=== PATIENT | male | born 1935 | race Caucasian/White ===

== ENCOUNTER → 2017-08-05 14:22 | Outpatient (CLI) | payer OTHER, SELFPAY ==
--- NOTE | 2017-08-08 09:05 | PM.PFT.1 ---
Pulmonary Function Test Referral & Results Date Patient Seen: 08/05/17 Requesting provider: Rocael Avila Results: The spirometry demonstrates an FVC of 3.06 L which is 79% of predicted. The FEV1 was measured at 2.55 L which is 93% of predicted. The FEV1/FVC ratio was 83 which is 115% of predicted. Following the administration of bronchodilator there was no appreciable change. Lung volumes show an SVC of 3.39 L which is 79% of predicted. The diffusing capacity was measured at 28.8 which is 92% of predicted. The maximum voluntary ventilation was normal. Interpretation: This study demonstrates normal pulmonary function
== END ==
PROVIDERS: Visit Provider Family Medicine
DX: R06.00 Dyspnea, unspecified (principal)
CPT/HCPCS: 94010; 94060; 94726; 94729

== ENCOUNTER → 2017-10-20 15:34 | Outpatient (CLI) | payer OTHER, SELFPAY ==
--- NOTE | 2017-10-20 15:37 | DI.RAD.S_ITS ---
PROCEDURE: XR ACUTE ABDOMEN SERIES INDICATIONS: DIARRHEA AND WEIGHT LOSS TECHNIQUE: One view chest and two views of the abdomen were acquired. COMPARISON: [facility], , CHEST 2 VIEW, 07/04/2017, 9:46. FINDINGS: Surgical changes and devices: None. Chest: Lungs are clear. Heart size is normal. No pleural effusions. No pneumoperitoneum. Abdomen: Bowel gas pattern is normal, nonspecific air-fluid levels present in the sigmoid colon and at the splenic flexure as well as scattered elsewhere.. No suspicious calcifications. Visualized solid organ contours appear normal. Bones: No suspicious bony lesions. IMPRESSION: 1. Normal chest. 2. Possible ileus with scattered air-fluid levels. Dictated by: Shawn Lopez M.D. on 10/20/2017 at 16:11 Approved by: Shawn Lopez M.D. on 10/20/2017 at 16:13
== END ==
PROVIDERS: Visit Provider Family Medicine
DX: R19.7 Diarrhea, unspecified (principal); R63.4 Abnormal weight loss
CPT/HCPCS: 74022

== ENCOUNTER → 2017-10-29 11:50 | Outpatient (CLI) | payer OTHER, SELFPAY ==
--- NOTE | 2017-10-29 | DI.CT.S_ITS ---
PROCEDURE: CT ABDOMEN PELVIS W CON INDICATIONS: WEIGHT LOSS/CONSTIPATION TECHNIQUE: After the administration of oral and intravenous contrast, 5 mm thick sections acquired from the diaphragms to the symphysis. 5 mm thick coronal and sagittal reformats were performed. For radiation dose reduction, the following was used: automated exposure control, adjustment of mA and/or kV according to patient size. COMPARISON: None. FINDINGS: Image quality: Excellent. ABDOMEN: Lung bases: Linear scarring and atelectasis are noted in posterior aspect of bilateral lung bases. Heart size is normal. Solid organs: Examination of liver shows a 3.2 x 3 x 1.6 cm ill-defined hypodense lesion with peripheral contrast enhancement seen in central/slightly lateral aspect right hepatic lobe. No other discrete hepatic lesion is noted. Gallbladder is well-distended and contains tiny [address] evidence of acute cholecystitis. Biliary system is non-dilated. Pancreas enhances normally. Spleen is normal in size and enhancement. No adrenal nodules. Kidneys are normal in size and enhancement, without hydronephrosis. Peritoneum and bowel: Stomach, small bowel, and colon loops are normal in caliber and wall thickness. There is a small hiatal hernia. Descending and sigmoid colon diverticulosis is seen, no significant evidence of acute diverticulitis. Appendix is visualized in right lower quadrant and is within normal limits. No free fluid or air. Nodes and vessels: No retroperitoneal or mesenteric adenopathy. Aorta and inferior vena cava are normal in caliber. Miscellaneous: Small periumbilical hernia is seen containing fat only. PELVIS: Genitourinary: Bladder wall thickness is normal. Enlarged prostate gland is noted with heterogeneous enhancement and significant mass effect of fluoroscopy unit bladder. No gross abnormalities are noted in the seminal vesicles. Miscellaneous: No inguinal hernias or adenopathy. Bones: No suspicious bony lesions. No vertebral body compression fractures. IMPRESSION: 1. 3.2 x 3 x 1.6 cm ill-defined hypodense lesion with peripheral contrast enhancement seen in the right hepatic lobe. This could represent benign process such as hemangioma. Malignant neoplasm of the liver cannot be entirely excluded. Consider further evaluation with MRI of abdomen without and with contrast. 2. No evidence of bowel obstruction. No gross abnormal bowel wall thickening. No free fluid or free air. Small hiatal hernia. Descending and sigmoid colon diverticulosis with no CT evidence of acute diverticulitis. 3. Cholelithiasis. No CT evidence of acute cholecystitis. No biliary ductal dilatation. 4. Enlarged prostate gland with heterogeneous contrast enhancement and mass effect of fluoroscopy unit bladder. No discrete bladder wall abnormality. No hydronephrosis. Suggest correlate with patient's PSA level. Dictated by: Reinaldo Ascencio M.D. on 10/29/2017 at 14:49 Approved by: Reinaldo Ascencio M.D. on 10/29/2017 at 15:14
== END ==
PROVIDERS: Visit Provider Family Medicine
DX: K59.00 Constipation, unspecified (principal); R63.4 Abnormal weight loss; K76.9 Liver disease, unspecified; K44.9 Diaphragmatic hernia without obstruction or gangrene; K57.30 Diverticulosis of large intestine without perforation or abscess without bleeding; K80.20 Calculus of gallbladder without cholecystitis without obstruction; N40.0 Benign prostatic hyperplasia without lower urinary tract symptoms
CPT/HCPCS: 74177; Q9967

== ENCOUNTER → 2017-11-13 13:51 | Outpatient (CLI) | payer OTHER, SELFPAY ==
--- NOTE | 2017-11-13 | DI.MRI.S_ITS ---
PROCEDURE: MR ABDOMEN WO/W CON INDICATIONS: LIVER LESION TECHNIQUE: Coronal HASTE, axial 2D FLASH in- and [id number]; axial breath-hold T2 FSE. Dynamic axial VIBE during the administration of contrast; post-contrast coronal VIBE or 2D FLASH with fat saturation from the hepatic dome to the iliac crests. Optional diffusion weighted imaging and ADC may be performed. COMPARISON: [facility], CT, CT ABDOMEN PELVIS W CON, 10/29/2017, 13:13. FINDINGS: Image quality: There is motion artifact limiting evaluation. Lung bases: No basal pleural effusions. Heart size is enlarged. Solid organs: Centered in segment 5 of the right hepatic lobe, there is an ovoid lesion with indistinct margins demonstrating T1 hypointensity and slight T2 hyperintensity. Following contrast administration, there is a thin peripheral enhancement demonstrated on the arterial phase which persists on the portal venous and delayed phases. No evidence of progressive centripetal enhancement. On the arterial phase, there is also associated vascular shunting. Gallbladder is partially distended without gallstones. Biliary system is non dilated. Pancreas is normal in morphology. No pancreatic duct dilatation. Spleen is normal in size and enhancement. No adrenal nodules. Kidneys demonstrate no hydronephrosis. There are small right parapelvic renal cysts. Nodes and vessels: No retroperitoneal or mesenteric adenopathy by size criteria. Aorta and inferior vena cava are normal in size. Bowel and peritoneum: Visualized bowel loops are normal in caliber. No free fluid. Bones and soft tissues: No ventral hernias. Bone marrow is normal in overall signal. IMPRESSION: 1. Peripherally enhancing lesion demonstrated in the right hepatic lobe with associated vascular shunting on the arterial phase. The findings are nonspecific but suspicious for metastatic disease. The differential includes a rim-enhancing fluid collection such as an abscess. Recommend correlation clinically. Dictated by: Vernon Srivastava M.D. on 11/13/2017 at 16:59 Approved by: Vernon Srivastava M.D. on 11/13/2017 at 17:06
== END ==
PROVIDERS: PCP Family Medicine; Visit Provider Family Medicine
DX: K76.9 Liver disease, unspecified (principal)
CPT/HCPCS: 74183; A9579

== ENCOUNTER → 2018-03-06 17:28 | Outpatient (CLI) | payer OTHER, SELFPAY ==
--- NOTE | 2018-03-06 | DI.MRI.S_ITS ---
PROCEDURE: MR ABDOMEN WO/W CON INDICATIONS: LIVER LESION TECHNIQUE: Coronal HASTE, axial 2D FLASH in- and [id number]; axial breath-hold T2 FSE. Dynamic axial VIBE during the administration of contrast; post-contrast coronal VIBE or 2D FLASH with fat saturation from the hepatic dome to the iliac crests. Optional diffusion weighted imaging and ADC may be performed. COMPARISON: [facility], CT, CT ABDOMEN PELVIS W CON, 10/29/2017, 13:13. [facility], MR, MR ABDOMEN WO/W CON, 11/13/2017, 14:09. FINDINGS: Image quality: Excellent. Lung bases: No basal pleural effusions. Heart size is normal. Solid organs: Within segment 8 of the right hepatic lobe, there is an ovoid curvilinear lesion redemonstrated, with an ovoid component measuring approximately 1.9 x 1.0 cm which demonstrates T1 hypointensity and slight T2 hyperintensity. This appears stable in size from the prior studies. There is peripheral enhancement during the arterial phase which persists on the portal venous and delayed phases. There is a small region of adjacent vascular shunting during the arterial phase. No evidence of washout. The curvilinear component appears to extend to the frantz hepatis. 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 The main portal vein as well as the central right and left portal veins appear patent. The central branches of the hepatic artery also appears patent. The central branches of the hepatic veins also appear patent. Gallbladder appears within normal limits without gallstones. Biliary system is non dilated. Pancreas is normal in morphology. Spleen is normal in size and enhancement. No adrenal nodules. The kidneys demonstrate no hydronephrosis. Nodes and vessels: No retroperitoneal or mesenteric adenopathy by size criteria. Aorta and inferior vena cava are normal in size. Bowel and peritoneum: Visualized bowel loops are normal in caliber. No free fluid. Bones and soft tissues: No ventral hernias. Bone marrow is normal in overall signal. IMPRESSION: 1. Stable appearance of a peripherally enhancing lesion in the right hepatic lobe compared to the prior studies. 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 Although the differential still includes a neoplasm, this is considered less likely. Recommend continued followup in 6 months to demonstrate stability. Dictated by: Vernon Srivastava M.D. on 03/09/2018 at 10:37 Approved by: Vernon Srivastava M.D. on 03/09/2018 at 12:24
== END ==
PROVIDERS: PCP Family Medicine; Visit Provider Family Medicine
DX: K76.9 Liver disease, unspecified (principal)
CPT/HCPCS: 74183; A9579

== ENCOUNTER → 2018-10-14 15:56 | Outpatient (CLI) | payer OTHER, SELFPAY ==
--- NOTE | 2018-10-14 16:00 | DI.MRI.S_ITS ---
PROCEDURE: MR ABDOMEN WO/W CON INDICATIONS: LIVER MASS TECHNIQUE: Coronal HASTE, axial 2D FLASH in- and [id number]; axial breath-hold T2 FSE. Dynamic axial VIBE during the administration of contrast; post-contrast coronal VIBE or 2D FLASH with fat saturation from the hepatic dome to the iliac crests. Optional diffusion weighted imaging and ADC may be performed. COMPARISON: [facility], MR, MR ABDOMEN WO/W CON, 03/06/2018, 17:48. FINDINGS: Image quality: Partially degraded by motion artifact. Lung bases: No basal pleural effusions. Heart size is normal. Solid organs: Liver is normal in size. The ovoid high T2 intensity focus within the right hepatic lobe measuring roughly 31 mm is unchanged in size, appearance, and enhancement. As before, this lesion demonstrates peripheral nodular enhancement on arterial phase images. Gallbladder is within normal limits. Biliary system is non dilated. Pancreas is normal in morphology. Spleen is normal in size and enhancement. No adrenal nodules. Both kidneys demonstrate normal size and enhancement, without hydronephrosis. Nodes and vessels: No retroperitoneal or mesenteric adenopathy by size criteria. Aorta and inferior vena cava are normal in size. Bowel and peritoneum: Unenhanced bowel loops are normal in caliber. No free fluid. Bones and soft tissues: No ventral hernias. Bone marrow is normal in overall signal. IMPRESSION: 1. No change in right hepatic lobe lesion, suggestive of an atypical hemangioma. Nuclear medicine tag red blood cell imaging may be helpful for further assessment. Alternatively, followup liver protocol MRI with and without intravenous contrast in 1 year could be performed to document stability. Dictated by: Anamaria Mckeon M.D. on 10/16/2018 at 8:47 Approved by: Anamaria Mckeon M.D. on 10/16/2018 at 8:52
== END ==
PROVIDERS: PCP Family Medicine; Visit Provider Family Medicine
DX: R16.0 Hepatomegaly, not elsewhere classified (principal)
CPT/HCPCS: 74183

== ENCOUNTER → 2018-11-04 16:22 | Outpatient (CLI) | payer OTHER, SELFPAY ==
--- NOTE | 2018-11-04 | DI.RAD.S_ITS ---
PROCEDURE: XR LUMBAR SPINE 2-3V INDICATIONS: Low back pain TECHNIQUE: 3 views of the lumbar spine were acquired. COMPARISON: None. FINDINGS: Bones: 5 [id number] vertebrae are present. There is normal bony alignment. No vertebral body compression fractures. No suspicious bony lesions. Degenerative disc disease and facet osteoarthritis and severe for this patient, over the thoracolumbar junction and lumbosacral line. It is most pronounced at L4-5 and L5-S1 where a high-grade spinal and foraminal stenosis appears present. Soft tissues: Overlying bowel gas pattern is normal. No suspicious soft tissue calcifications. IMPRESSION: Severe degenerative disc disease and facet osteoarthritis, high-grade low lumbosacral junction region spinal and foraminal stenosis would be expected. No trauma found. Dictated by: Rober Law M.D. on 11/04/2018 at 17:18 Approved by: Rober Law M.D. on 11/04/2018 at 17:19
== END ==
PROVIDERS: PCP Family Medicine; Visit Provider Family Medicine
DX: M54.5 Low back pain (principal); M51.36 Other intervertebral disc degeneration, lumbar region; M51.37 Other intervertebral disc degeneration, lumbosacral region; M47.816 Spondylosis without myelopathy or radiculopathy, lumbar region; M47.817 Spondylosis without myelopathy or radiculopathy, lumbosacral region
CPT/HCPCS: 72100

== ENCOUNTER → 2018-12-12 12:20 | Outpatient (CLI) | payer OTHER, SELFPAY ==
--- NOTE | 2018-12-12 | DI.MRI.S_ITS ---
PROCEDURE: MR LUMBAR SPINE WO CON INDICATIONS: Low back pain TECHNIQUE: Noncontrast sagittal T1 spin echo and T2 fast echo, sagittal STIR, axial T1 and T2 fast spin echo through the lumbar spine. In cases with scoliosis, additional coronal T2 fast spin echo may be performed. COMPARISON: [facility], CR, XR LUMBAR SPINE 2-3V, 11/04/2018, 16:41. FINDINGS: Image quality: Excellent. Alignment and Curvature: There is minimal retrolisthesis of L1 on L2, L3 on L4, L4-L5 and L5 on S1. Bone Marrow: Marrow is of normal overall signal. No acute vertebral body compression fractures. Spinal Cord: Conus medullaris terminates at the L2 level. Visualized cord demonstrates normal signal and size. Paraspinous Soft Tissues: No paravertebral masses. Discs: Severe desiccation is present at L5-S1, moderate throughout the remainder of the lumbar spine. L1-L2: Mild disc both without spinal stenosis. Mild to moderate bilateral foraminal narrowing with facet and ligamentum flavum hypertrophy. L2-L3: Minimal disc bulge with prominent right lateral disc osteophyte complex. Severe right and mild left foraminal narrowing with facet and ligamentum flavum hypertrophy. L3-L4: Mild disc bulge with minimal spinal stenosis. Severe bilateral foraminal narrowing, right greater than left with slight appearance of flattening on the right. Facet and ligamentum flavum hypertrophy are present. L4-L5: Mild disc bulge including a left posterior paracentral protrusion with compromise of the left lateral recess. Severe bilateral foraminal narrowing with facet and ligamentum flavum hypertrophy. L5-S1: Mild disc bulge with minimal to mild spinal stenosis. Severe bilateral foraminal narrowing with slight nerve root flattening bilaterally. Facet hypertrophy is present. IMPRESSION: 1. Multilevel disc bulges. 2. Minimal to mild to spinal stenosis secondary to disc bulge with contributing effect of facet arthropathy. 3. Multilevel foraminal narrowing, severe at multiple levels secondary to facet arthropathy. Slight appearance of nerve root flattening is noted L3-4 and L5-S1. Dictated by: Steph Ferreira M.D. on 12/14/2018 at 8:47 Approved by: Steph Ferreira M.D. on 12/14/2018 at 9:56
== END ==
PROVIDERS: PCP Family Medicine; Visit Provider Family Medicine
DX: M48.061 Spinal stenosis, lumbar region without neurogenic claudication (principal); M51.26 Other intervertebral disc displacement, lumbar region
CPT/HCPCS: 72148

== ENCOUNTER 2018-12-25 13:45 | Outpatient (RCR) | payer OTHER, SELFPAY ==
--- NOTE | 2018-12-02 16:45 | PT.OIE ---
Current Diagnoses Other intervertebral disc degeneration, lumbar region (12/02/18) Low back pain (12/02/18) Muscle weakness (generalized) (12/02/18) Visit Care Team Role Provider Type Rocael Avila MD Attending Provider Physician Primary Care Provider Specialty: Family Practice Address: [address] [place] [address], [facility] [place], [address] Email: [email or web address] Therapy Initial Evaluation PT-OP-A Visit Information Start: 12/07/18 13:18 Freq: Status: Active Protocol: Document 12/02/18 16:00 DCW (Rec: 12/07/18 13:42 DCW [id number]) Out-Patient Physical Therapy Visit Information Visit Information Visit Type Initial Evaluation Visit Start Time 16:00 Visit Stop Time 16:45 Total Visit Minutes 45 Visit Number 1 Number of QUALITY ASSISTANT Visits 0 Evaluation Information Evaluation Date 12/02/18 PT-OP-B Current Condition Start: 12/07/18 13:18 Freq: Status: Active Protocol: Document 12/02/18 16:00 DCW (Rec: 12/07/18 13:42 DCW [id number]) Current Condition History of Current Condition Onset Date 2-3 weeks Current Complaints low back pain and stiffness limiting mobility and daily activities History of Current Condition Pt is an 83 year old male presenting with a 2-3 week history of worsening low back pain. Pt reports he has a history of low back pain and sciatica, which was taken care of by acupuncture years ago. Pt notes that he has been consistently icing his back, which does not seem to have helped any, and it is always worse after he has not been moving. Pt admits that he woke up at 2 am this morning due to pain, and couldn't even get out of bed. Describes that pain as a sharp, grabbing sensation. He experiences increased pain when bending over to tie his shoes, and has difficulty mowing the yard. Pt attends his evaluation approximately 40 minutes after receiving a Torodol injection in his low back, which he already feels is giving him some relief. Prior Functional Status Baseline Function- ADL's Independent Baseline Function- Mobility Independent Baseline Function- Other Able to mow entire yard, spend all day out gardening Current Functional Impairments (Reported) Functional Limitations- Other Requires a rest break while mowing every 4-10 minutes, can only garden for 10-15 minutes . PT-OP-C Subjective Start: 12/07/18 13:18 Freq: Status: Active Protocol: Document 12/02/18 16:00 DCW (Rec: 12/07/18 13:42 DCW [id number]) OP-PT Subjective Patient Comments Patient Comments It hurts when I do anything. I feel like I'm just stuck, it hurts when I don't do anything, but it also hurts if I do something. Patient Reported Progress Worse OP-PT Pain Assessment Pain Assessment Grid Paper Pain Assessment Grid Completed No PT-OP-F Manual Assessment Start: 12/07/18 13:18 Freq: Status: Active Protocol: Document 12/02/18 16:00 DCW (Rec: 12/07/18 13:42 DCW [id number]) Manual Assessments Soft Tissue Assessment Soft Tissue Mobility Assessment Bilateral moderate tightness in QL, Piriformis, Hamstring. Joint Mobility Assessment Joint Mobility Assessment Hypomobility L2-L5 /c P->A mobiilzation. Limited Lumbar ROM PT-OP-K Range of Motion Start: 12/07/18 13:18 Freq: Status: Active Protocol: Document 12/02/18 16:00 DCW (Rec: 12/07/18 13:42 DCW [id number]) Lumbar Spine Range of Motion Lumbar Spine Active Degrees Testing Position Standing Flexion 35 Extension 12 Lateral Flexion Left 56 Lateral Flexion Right 39 Comments Lateral flexion measured in cm from floor to fingertips, substantially limited with left lateral flexion PT-OP-L Special Tests Start: 12/07/18 13:18 Freq: Status: Active Protocol: Document 12/02/18 16:00 DCW (Rec: 12/07/18 13:42 DCW [id number]) Special Tests Lumbar Spine Special Tests CHRISTOPHER Test Results Positive bilaterally - ipsilateral pain in back Straight Leg Raise Test Results Positive Left Slump Test Results Positive bilaterally Manual Traction Test Results Negative Compression Test Results Positive PT-OP-M Strength Start: 12/07/18 13:18 Freq: Status: Active Protocol: Document 12/02/18 16:00 DCW (Rec: 12/07/18 13:42 DCW [id number]) Trunk Strength Trunk Manual Muscle Testing Core Stabilization Pt struggles to maintain TrA contraction and hold PPT at the same time. TrA MMT rated 3 +/5 Hip Strength Hip Manual Muscle Testing Bilateral Flexion (L2) 4+ Good+ Extension (S1) 4+ Good+ Abduction 4+ Good+ Adduction 4+ Good+ External Rotation 4+ Good+ Internal Rotation 4+ Good+ Knee Strength Knee Manual Muscle Testing Bilateral Flexion (S2) 4+ Good+ Extension (L3) 4+ Good+ PT-OP-Q Treatments Start: 12/07/18 13:18 Freq: Status: Active Protocol: Document 12/02/18 16:00 DCW (Rec: 12/07/18 13:42 DCW [id number]) Therapeutic Exercises Supine Exercises PPT /c SLR Supine Exercise Name PPT /c TrA contraction - Alternating SLR Reps/Minutes 5 hold PPT /c Marching Supine Exercise Name PPT /c TrA contraction - Marching Reps/Minutes 5 hold PPT /c TrA Supine Exercise Name PPT /c TrA contraction Reps/Minutes 5 hold PT-OP-T Assessment and Plan Start: 12/07/18 13:18 Freq: Status: Active Protocol: Document 12/02/18 16:00 DCW (Rec: 12/07/18 13:42 DCW [id number]) Physical Therapy Assessment Rehab Potential Rehabilitation Potential Good Evaluation Complexity Number of Personal Factors/Comorbidities 1-2 Number of Body Systems Impaired 4 or More Clinical Presentation at Evaluation Evolving Impairments Impairments Activity Tolerance,Functional Mobility,Pain,ROM,Soft Tissue Mobility,Strength Goals Four Impairment Limited lumbar ROM Short Term Goal (STG) Pt to demonstrate increase in lumbar flexion to 45? and extension to 20? STG Duration 01/01/19 Corrosion Control Specialist Goal (LTG) Pt to display lateral flexion to at most 45 cm fingertips to ground bilaterally LTG Duration 02/01/19 Three Impairment Pt requires a break after 15 minutes gardening Corrosion Control Specialist Goal (LTG) Pt to garden for one hour with no increased back pain LTG Duration 02/01/19 Two Impairment Pt unable to mow longer than 10 minutes at a time Senior Living Goal (LTG) Pt to tolerate mowing yard for 30 minutes with no increased low back pain LTG Duration 02/01/19 One Impairment Pt does not have an appropriate home exercise program Short Term Goal (STG) Pt to be independent and compliant with an appropriate HEP STG Duration 01/01/19 Assessment Summary Assessment Pt presents with signs and symptoms consistent with lumbar degenerative disc disease. Pt displays limited lumbar ROM, increased tone in his paraspinal and posterior hip musculature, core weakness , and increased pain with activity. Skilled therapy should focus on core strengthening, STM and stretching to decrease tone, TherEx to improve activity tolerance, and joint mobilization to improve ROM. Additionally, pt may also benefit at some point with aquatic therapy, to enable him to strengthen and decrease compression of his spine. Physical Therapy Plan Frequency and Duration Frequency of Treatment 2x/Week Duration of Treatment 12 weeks Plan of Care Start Date 12/02/18 Plan of Care End Date 02/24/19 Therapeutic Interventions Therapeutic Interventions Aquatic Therapy,Home Exercise Program,Joint Mobilizations, Manual Therapy,Patient/ Caregiver Education,Self-Care/ Home Management,Soft Tissue Mobilization,Therapeutic Exercises Modalities Cold Pack/Ice Massage,Electric Stimulation,Hot Packs, Ultrasound Next Visit Focus/Plan Next Note Type Treatment Note Next Visit Plan Lumbar ROM, Core strengthening , STM
--- NOTE | 2018-12-02 16:45 | PT.OPPOC ---
Current Diagnoses Other intervertebral disc degeneration, lumbar region (12/02/18) Low back pain (12/02/18) Muscle weakness (generalized) (12/02/18) Visit Care Team Role Provider Type Rocael Avila MD Attending Provider Physician Primary Care Provider Specialty: Family Practice Address: [address] [place] [address], [facility] [place], [address] Email: [email or web address] Plan Of Care PT-OP-T Assessment and Plan Start: 12/07/18 13:18 Freq: Status: Active Protocol: Document 12/02/18 16:00 DCW (Rec: 12/07/18 13:42 DCW [id number]) Physical Therapy Assessment Rehab Potential Rehabilitation Potential Good Evaluation Complexity Number of Personal Factors/Comorbidities 1-2 Number of Body Systems Impaired 4 or More Clinical Presentation at Evaluation Evolving Impairments Impairments Activity Tolerance,Functional Mobility,Pain,ROM,Soft Tissue Mobility,Strength Goals Four Impairment Limited lumbar ROM Short Term Goal (STG) Pt to demonstrate increase in lumbar flexion to 45? and extension to 20? STG Duration 01/01/19 Longterm Goal (LTG) Pt to display lateral flexion to at most 45 cm fingertips to ground bilaterally LTG Duration 02/01/19 Three Impairment Pt requires a break after 15 minutes gardening Longterm Goal (LTG) Pt to garden for one hour with no increased back pain LTG Duration 02/01/19 Two Impairment Pt unable to mow longer than 10 minutes at a time Longterm Goal (LTG) Pt to tolerate mowing yard for 30 minutes with no increased low back pain LTG Duration 02/01/19 One Impairment Pt does not have an appropriate home exercise program Short Term Goal (STG) Pt to be independent and compliant with an appropriate HEP STG Duration 01/01/19 Assessment Summary Assessment Pt presents with signs and symptoms consistent with lumbar degenerative disc disease. Pt displays limited lumbar ROM, increased tone in his paraspinal and posterior hip musculature, core weakness , and increased pain with activity. Skilled therapy should focus on core strengthening, STM and stretching to decrease tone, TherEx to improve activity tolerance, and joint mobilization to improve ROM. Additionally, pt may also benefit at some point with aquatic therapy, to enable him to strengthen and decrease compression of his spine. Physical Therapy Plan Frequency and Duration Frequency of Treatment 2x/Week Duration of Treatment 12 weeks Plan of Care Start Date 12/02/18 Plan of Care End Date 02/24/19 Therapeutic Interventions Therapeutic Interventions Aquatic Therapy,Home Exercise Program,Joint Mobilizations, Manual Therapy,Patient/ Caregiver Education,Self-Care/ Home Management,Soft Tissue Mobilization,Therapeutic Exercises Modalities Cold Pack/Ice Massage,Electric Stimulation,Hot Packs, Ultrasound Next Visit Focus/Plan Next Note Type Treatment Note Next Visit Plan Lumbar ROM, Core strengthening , STM Plan of Care Dates Plan of Care Start Date 12/02/18 Plan of Care End Date 02/24/19 Please Sign and Return: I have reviewed this Plan of Care and certify that the skilled therapy services above are required to meet the patient?s needs. Physician Signature Date Printed Name and Credentials Clinical Instructor Signature Printed Name and Credentials
--- NOTE | 2018-12-16 15:57 | PT.OTN ---
Current Diagnoses Other intervertebral disc degeneration, lumbar region (12/16/18) Low back pain (12/16/18) Muscle weakness (generalized) (12/16/18) Physical Therapy Treatment Note PT-OP-A Visit Information Start: 12/07/18 13:18 Freq: Status: Active Protocol: Document 12/16/18 15:15 DCW (Rec: 12/16/18 15:57 DCW [id number]) Out-Patient Physical Therapy Visit Information Visit Information Visit Type Treatment Note Visit Start Time 15:15 Visit Stop Time 16:00 Total Visit Minutes 45 Visit Number 2 Number of DOUGHNUT FRYER Visits 0 Evaluation Information Evaluation Date 12/02/18 PT-OP-B Current Condition Start: 12/07/18 13:18 Freq: Status: Active Protocol: Document 12/02/18 16:00 DCW (Rec: 12/07/18 13:42 DCW [id number]) Current Condition History of Current Condition Onset Date 2-3 weeks Current Complaints low back pain and stiffness limiting mobility and daily activities History of Current Condition Pt is an 83 year old male presenting with a 2-3 week history of worsening low back pain. Pt reports he has a history of low back pain and sciatica, which was taken care of by acupuncture years ago. Pt notes that he has been consistently icing his back, which does not seem to have helped any, and it is always worse after he has not been moving. Pt admits that he woke up at 2 am this morning due to pain, and couldn't even get out of bed. Describes that pain as a sharp, grabbing sensation. He experiences increased pain when bending over to tie his shoes, and has difficulty mowing the yard. Pt attends his evaluation approximately 40 minutes after receiving a Torodol injection in his low back, which he already feels is giving him some relief. Prior Functional Status Baseline Function- ADL's Independent Baseline Function- Mobility Independent Baseline Function- Other Able to mow entire yard, spend all day out gardening Current Functional Impairments (Reported) Functional Limitations- Other Requires a rest break while mowing every 4-10 minutes, can only garden for 10-15 minutes . PT-OP-C Subjective Start: 12/07/18 13:18 Freq: Status: Active Protocol: Document 12/16/18 15:15 DCW (Rec: 12/16/18 15:57 DCW [id number]) OP-PT Subjective Patient Comments Patient Comments I've been doing the exercises you gave me. I may be forgetting some of them, but I 'm doing most of them, and my back pain is probably 75% gone . PT-OP-F Manual Assessment Start: 12/07/18 13:18 Freq: Status: Active Protocol: Document 12/02/18 16:00 DCW (Rec: 12/07/18 13:42 DCW [id number]) Manual Assessments Soft Tissue Assessment Soft Tissue Mobility Assessment Bilateral moderate tightness in QL, Piriformis, Hamstring. Joint Mobility Assessment Joint Mobility Assessment Hypomobility L2-L5 /c P->A mobiilzation. Limited Lumbar ROM PT-OP-K Range of Motion Start: 12/07/18 13:18 Freq: Status: Active Protocol: Document 12/02/18 16:00 DCW (Rec: 12/07/18 13:42 DCW [id number]) Lumbar Spine Range of Motion Lumbar Spine Active Degrees Testing Position Standing Flexion 35 Extension 12 Lateral Flexion Left 56 Lateral Flexion Right 39 Comments Lateral flexion measured in cm from floor to fingertips, substantially limited with left lateral flexion PT-OP-L Special Tests Start: 12/07/18 13:18 Freq: Status: Active Protocol: Document 12/02/18 16:00 DCW (Rec: 12/07/18 13:42 DCW [id number]) Special Tests Lumbar Spine Special Tests CHRISTOPHER Test Results Positive bilaterally - ipsilateral pain in back Straight Leg Raise Test Results Positive Left Slump Test Results Positive bilaterally Manual Traction Test Results Negative Compression Test Results Positive PT-OP-M Strength Start: 12/07/18 13:18 Freq: Status: Active Protocol: Document 12/02/18 16:00 DCW (Rec: 12/07/18 13:42 DCW [id number]) Trunk Strength Trunk Manual Muscle Testing Core Stabilization Pt struggles to maintain TrA contraction and hold PPT at the same time. TrA MMT rated 3 +/5 Hip Strength Hip Manual Muscle Testing Bilateral Flexion (L2) 4+ Good+ Extension (S1) 4+ Good+ Abduction 4+ Good+ Adduction 4+ Good+ External Rotation 4+ Good+ Internal Rotation 4+ Good+ Knee Strength Knee Manual Muscle Testing Bilateral Flexion (S2) 4+ Good+ Extension (L3) 4+ Good+ PT-OP-Q Treatments Start: 12/07/18 13:18 Freq: Status: Active Protocol: Document 12/16/18 15:15 DCW (Rec: 12/16/18 15:57 DCW [id number]) Cardio Equipment Recumbent Elliptical (Biodex) Duration (Minutes) 5 Resistance 3 Gym Equipment Shuttle Recovery Unilateral Squats Resistance 62# Shuttle Recovery Platform Stable Bilateral Squats Resistance 100# Shuttle Recovery Platform Stable Therapeutic Ball Low Trunk Rotation Exercise Details Low Trunk Rotation Ball Size/Color Red - 55 cm Body Position Supine Therapeutic Exercises Supine Exercises SLR Supine Exercise Name SLR Side bilateral Resistance 4# Reps/Minutes x15 Sidelying Exercises Reverse Clamshell Sidelying Exercise Name Reverse Clamshell Side bilateral Clamshell Sidelying Exercise Name Clamshell Side bilateral Standing Exercises Hamstring Curl Standing Exercise Name HS Curl Side bilateral Resistance 5# Standing Marching Standing Exercise Name Standing Marching Side bilateral Resistance 5# Other Exercises Resisted Ambulation Other Exercise Name Forward, Lateral stepping Resistance Green Equipment Used T-band PT-OP-T Assessment and Plan Start: 12/07/18 13:18 Freq: Status: Active Protocol: Document 12/16/18 15:15 DCW (Rec: 12/16/18 15:57 DCW [id number]) Physical Therapy Assessment Rehab Potential Rehabilitation Potential Good Evaluation Complexity Number of Personal Factors/Comorbidities 1-2 Number of Body Systems Impaired 4 or More Clinical Presentation at Evaluation Evolving Impairments Impairments Activity Tolerance,Functional Mobility,Pain,ROM,Soft Tissue Mobility,Strength Goals Four Impairment Limited lumbar ROM Short Term Goal (STG) Pt to demonstrate increase in lumbar flexion to 45? and extension to 20? STG Duration 01/01/19 Seed Cleaning Manager Goal (LTG) Pt to display lateral flexion to at most 45 cm fingertips to ground bilaterally LTG Duration 02/01/19 Three Impairment Pt requires a break after 15 minutes gardening Fdc Goal (LTG) Pt to garden for one hour with no increased back pain LTG Duration 02/01/19 Two Impairment Pt unable to mow longer than 10 minutes at a time Seed Cleaning Manager Goal (LTG) Pt to tolerate mowing yard for 30 minutes with no increased low back pain LTG Duration 02/01/19 One Impairment Pt does not have an appropriate home exercise program Short Term Goal (STG) Pt to be independent and compliant with an appropriate HEP STG Duration 01/01/19 Assessment Summary Assessment Pt appears to have already made fairly good progress since his initial evaluation two weeks ago, decreased back pain by 75%, but is still reporting quick fatigue and decreased activity tolerance. Physical Therapy Plan Frequency and Duration Frequency of Treatment 2x/Week Duration of Treatment 12 weeks Plan of Care Start Date 12/02/18 Plan of Care End Date 02/24/19 Therapeutic Interventions Therapeutic Interventions Aquatic Therapy,Home Exercise Program,Joint Mobilizations, Manual Therapy,Patient/ Caregiver Education,Self-Care/ Home Management,Soft Tissue Mobilization,Therapeutic Exercises Modalities Cold Pack/Ice Massage,Electric Stimulation,Hot Packs, Ultrasound Next Visit Focus/Plan Next Note Type Treatment Note Next Visit Plan Lumbar ROM, Core strengthening , STM
--- NOTE | 2018-12-23 15:59 | PT.OTN ---
Current Diagnoses Other intervertebral disc degeneration, lumbar region (12/23/18) Low back pain (12/23/18) Muscle weakness (generalized) (12/23/18) Physical Therapy Treatment Note PT-OP-A Visit Information Start: 12/07/18 13:18 Freq: Status: Active Protocol: Document 12/23/18 15:15 DCW (Rec: 12/23/18 15:59 DCW [id number]) Out-Patient Physical Therapy Visit Information Visit Information Visit Type Treatment Note Visit Start Time 15:15 Visit Stop Time 16:00 Total Visit Minutes 50 Visit Number 3 Number of POSTAL CARRIER Visits 0 Evaluation Information Evaluation Date 12/02/18 PT-OP-B Current Condition Start: 12/07/18 13:18 Freq: Status: Active Protocol: Document 12/02/18 16:00 DCW (Rec: 12/07/18 13:42 DCW [id number]) Current Condition History of Current Condition Onset Date 2-3 weeks Current Complaints low back pain and stiffness limiting mobility and daily activities History of Current Condition Pt is an 83 year old male presenting with a 2-3 week history of worsening low back pain. Pt reports he has a history of low back pain and sciatica, which was taken care of by acupuncture years ago. Pt notes that he has been consistently icing his back, which does not seem to have helped any, and it is always worse after he has not been moving. Pt admits that he woke up at 2 am this morning due to pain, and couldn't even get out of bed. Describes that pain as a sharp, grabbing sensation. He experiences increased pain when bending over to tie his shoes, and has difficulty mowing the yard. Pt attends his evaluation approximately 40 minutes after receiving a Torodol injection in his low back, which he already feels is giving him some relief. Prior Functional Status Baseline Function- ADL's Independent Baseline Function- Mobility Independent Baseline Function- Other Able to mow entire yard, spend all day out gardening Current Functional Impairments (Reported) Functional Limitations- Other Requires a rest break while mowing every 4-10 minutes, can only garden for 10-15 minutes . PT-OP-C Subjective Start: 12/07/18 13:18 Freq: Status: Active Protocol: Document 12/23/18 15:15 DCW (Rec: 12/23/18 15:59 DCW [id number]) OP-PT Subjective Patient Comments Patient Comments My is giving me a hard time, because I haven't been doing these exercises at home. PT-OP-F Manual Assessment Start: 12/07/18 13:18 Freq: Status: Active Protocol: Document 12/02/18 16:00 DCW (Rec: 12/07/18 13:42 DCW [id number]) Manual Assessments Soft Tissue Assessment Soft Tissue Mobility Assessment Bilateral moderate tightness in QL, Piriformis, Hamstring. Joint Mobility Assessment Joint Mobility Assessment Hypomobility L2-L5 /c P->A mobiilzation. Limited Lumbar ROM PT-OP-K Range of Motion Start: 12/07/18 13:18 Freq: Status: Active Protocol: Document 12/02/18 16:00 DCW (Rec: 12/07/18 13:42 DCW [id number]) Lumbar Spine Range of Motion Lumbar Spine Active Degrees Testing Position Standing Flexion 35 Extension 12 Lateral Flexion Left 56 Lateral Flexion Right 39 Comments Lateral flexion measured in cm from floor to fingertips, substantially limited with left lateral flexion PT-OP-L Special Tests Start: 12/07/18 13:18 Freq: Status: Active Protocol: Document 12/02/18 16:00 DCW (Rec: 12/07/18 13:42 DCW [id number]) Special Tests Lumbar Spine Special Tests CHRISTOPHER Test Results Positive bilaterally - ipsilateral pain in back Straight Leg Raise Test Results Positive Left Slump Test Results Positive bilaterally Manual Traction Test Results Negative Compression Test Results Positive PT-OP-M Strength Start: 12/07/18 13:18 Freq: Status: Active Protocol: Document 12/02/18 16:00 DCW (Rec: 12/07/18 13:42 DCW [id number]) Trunk Strength Trunk Manual Muscle Testing Core Stabilization Pt struggles to maintain TrA contraction and hold PPT at the same time. TrA MMT rated 3 +/5 Hip Strength Hip Manual Muscle Testing Bilateral Flexion (L2) 4+ Good+ Extension (S1) 4+ Good+ Abduction 4+ Good+ Adduction 4+ Good+ External Rotation 4+ Good+ Internal Rotation 4+ Good+ Knee Strength Knee Manual Muscle Testing Bilateral Flexion (S2) 4+ Good+ Extension (L3) 4+ Good+ PT-OP-Q Treatments Start: 12/07/18 13:18 Freq: Status: Active Protocol: Document 12/23/18 15:15 DCW (Rec: 12/23/18 15:59 DCW [id number]) Cardio Equipment Recumbent Elliptical (Biodex) Duration (Minutes) 5 Resistance 4 Seat Position 10 Gym Equipment Shuttle Recovery Unilateral Squats Resistance 62# Shuttle Recovery Platform Stable Bilateral Squats Resistance 100# Shuttle Recovery Platform Stable Therapeutic Exercises Standing Exercises Hamstring Curl Standing Exercise Name HS Curl Side bilateral Resistance 5# Standing Marching Standing Exercise Name Standing Marching Side bilateral Resistance 5# Other Exercises Resisted Ambulation Other Exercise Name Forward, Lateral stepping Resistance Green Equipment Used T-band Manual Therapy Treatment Soft Tissue Mobilization Lumbar Paraspinals Body Location R paraspinals, QL, piriformis Mobilization Type Strumming,Sustained Pressure, Trigger Point Release Body Position Prone Manual Traction Lumbar Details Short-axis lumbar traction /c belt PT-OP-T Assessment and Plan Start: 12/07/18 13:18 Freq: Status: Active Protocol: Document 12/23/18 15:15 DCW (Rec: 12/23/18 15:59 DCW [id number]) Physical Therapy Assessment Impairments Impairments Activity Tolerance,Functional Mobility,Pain,ROM,Soft Tissue Mobility,Strength Goals Four Impairment Limited lumbar ROM Short Term Goal (STG) Pt to demonstrate increase in lumbar flexion to 45? and extension to 20? STG Duration 01/01/19 Pressurization Mechanic Goal (LTG) Pt to display lateral flexion to at most 45 cm fingertips to ground bilaterally LTG Duration 02/01/19 Three Impairment Pt requires a break after 15 minutes gardening Pressurization Mechanic Goal (LTG) Pt to garden for one hour with no increased back pain LTG Duration 02/01/19 Two Impairment Pt unable to mow longer than 10 minutes at a time Pressurization Mechanic Goal (LTG) Pt to tolerate mowing yard for 30 minutes with no increased low back pain LTG Duration 02/01/19 One Impairment Pt does not have an appropriate home exercise program Short Term Goal (STG) Pt to be independent and compliant with an appropriate HEP STG Duration 01/01/19 Assessment Summary Assessment Pt continues to report some improvement, although not as dramatic as at his second visit. Pt tolerated addition of manual therapy well, though noted some mild tenderness. Physical Therapy Plan Frequency and Duration Frequency of Treatment 2x/Week Duration of Treatment 12 weeks Plan of Care Start Date 12/02/18 Plan of Care End Date 02/24/19 Therapeutic Interventions Therapeutic Interventions Aquatic Therapy,Home Exercise Program,Joint Mobilizations, Manual Therapy,Patient/ Caregiver Education,Self-Care/ Home Management,Soft Tissue Mobilization,Therapeutic Exercises Modalities Cold Pack/Ice Massage,Electric Stimulation,Hot Packs, Ultrasound Next Visit Focus/Plan Next Note Type Treatment Note Next Visit Plan Lumbar ROM, Core strengthening , STM
--- NOTE | 2018-12-25 14:29 | PT.OTN ---
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 Pt reports he has a history of low back pain and sciatica, which was taken care of by acupuncture years ago. Pt notes that he has been consistently icing his back, which does not seem to have helped any, and it is always worse after he has not been moving. Pt admits that he woke up at 2 am this morning due to pain, and couldn't even get out of bed. Describes that pain as a sharp, grabbing sensation. He experiences increased pain when bending over to tie his shoes, and has difficulty mowing the yard. Pt attends his evaluation approximately 40 minutes after receiving a Torodol injection in his low back, which he already feels is giving him some relief. Prior Functional Status Baseline Function- ADL's Independent Baseline Function- Mobility Independent Baseline Function- Other Able to mow entire yard, spend all day out gardening Current Functional Impairments (Reported) Functional Limitations- Other Requires a rest break while mowing every 4-10 minutes, can only garden for 10-15 minutes . PT-OP-C Subjective Start: 12/07/18 13:18 Freq: Status: Active Protocol: Document 12/25/18 13:45 DCW (Rec: 12/25/18 14:26 DCW [id number]) OP-PT Subjective Patient Comments Patient Comments I'm doing alright. No big changes, sorry I can't really say more. Admits he did feel better following the soft- tissue work during Friday's appointment. PT-OP-F Manual Assessment Start: 12/07/18 13:18 Freq: Status: Active Protocol: Document 12/02/18 16:00 DCW (Rec: 12/07/18 13:42 DCW [id number]) Manual Assessments Soft Tissue Assessment Soft Tissue Mobility Assessment Bilateral moderate tightness in QL, Piriformis, Hamstring. Joint Mobility Assessment Joint Mobility Assessment Hypomobility L2-L5 /c P->A mobiilzation. Limited Lumbar ROM PT-OP-K Range of Motion Start: 12/07/18 13:18 Freq: Status: Active Protocol: Document 12/02/18 16:00 DCW (Rec: 12/07/18 13:42 DCW [id number]) Lumbar Spine Range of Motion Lumbar Spine Active Degrees Testing Position Standing Flexion 35 Extension 12 Lateral Flexion Left 56 Lateral Flexion Right 39 Comments Lateral flexion measured in cm from floor to fingertips, substantially limited with left lateral flexion PT-OP-L Special Tests Start: 12/07/18 13:18 Freq: Status: Active Protocol: Document 12/02/18 16:00 DCW (Rec: 12/07/18 13:42 DCW [id number]) Special Tests Lumbar Spine Special Tests CHRISTOPHER Test Results Positive bilaterally - ipsilateral pain in back Straight Leg Raise Test Results Positive Left Slump Test Results Positive bilaterally Manual Traction Test Results Negative Compression Test Results Positive PT-OP-M Strength Start: 12/07/18 13:18 Freq: Status: Active Protocol: Document 12/02/18 16:00 DCW (Rec: 12/07/18 13:42 DCW [id number]) Trunk Strength Trunk Manual Muscle Testing Core Stabilization Pt struggles to maintain TrA contraction and hold PPT at the same time. TrA MMT rated 3 +/5 Hip Strength Hip Manual Muscle Testing Bilateral Flexion (L2) 4+ Good+ Extension (S1) 4+ Good+ Abduction 4+ Good+ Adduction 4+ Good+ External Rotation 4+ Good+ Internal Rotation 4+ Good+ Knee Strength Knee Manual Muscle Testing Bilateral Flexion (S2) 4+ Good+ Extension (L3) 4+ Good+ PT-OP-Q Treatments Start: 12/07/18 13:18 Freq: Status: Active Protocol: Document 12/25/18 13:45 DCW (Rec: 12/25/18 14:26 DCW [id number]) Cardio Equipment Recumbent Elliptical (Biodex) Duration (Minutes) 5 Resistance 4 Seat Position 10 Gym Equipment Shuttle Recovery Unilateral Squats Resistance 62# Shuttle Recovery Platform Stable Bilateral Squats Resistance 100# Shuttle Recovery Platform Stable Therapeutic Ball Low Trunk Rotation Exercise Details Low Trunk Rotation Ball Size/Color Red - 55 cm Body Position Supine Therapeutic Exercises Supine Exercises SLR Supine Exercise Name SLR Side bilateral Resistance 4# Reps/Minutes x15 Sidelying Exercises Abduction Sidelying Exercise Name Hip Abduction Side bilateral Reverse Clamshell Sidelying Exercise Name Reverse Clamshell Side bilateral Clamshell Sidelying Exercise Name Clamshell Side bilateral Other Exercises Resisted Ambulation Other Exercise Name Forward, Lateral stepping Resistance Green Equipment Used T-band Manual Therapy Treatment Soft Tissue Mobilization Lumbar Paraspinals Body Location R paraspinals, QL, piriformis Mobilization Type Strumming,Sustained Pressure, Trigger Point Release Body Position Prone PT-OP-R Modalities Start: 12/25/18 14:27 Freq: Status: Active Protocol: Document 12/25/18 13:45 DCW (Rec: 12/25/18 14:28 DCW [id number]) Hot Pack/Cold Pack Treatment Cold Pack Location Lumbar Spine Patient Position Hooklying Treatment Duration (minutes) 10 Patient Tolerance Good PT-OP-T Assessment and Plan Start: 12/07/18 13:18 Freq: Status: Active Protocol: Document 12/25/18 13:45 DCW (Rec: 12/25/18 14:26 DCW [id number]) Physical Therapy Assessment Impairments Impairments Activity Tolerance,Functional Mobility,Pain,ROM,Soft Tissue Mobility,Strength Goals Four Impairment Limited lumbar ROM Short Term Goal (STG) Pt to demonstrate increase in lumbar flexion to 45? and extension to 20? STG Duration 01/01/19 Web Consultant Goal (LTG) Pt to display lateral flexion to at most 45 cm fingertips to ground bilaterally LTG Duration 02/01/19 Three Impairment Pt requires a break after 15 minutes gardening Halfway Goal (LTG) Pt to garden for one hour with no increased back pain LTG Duration 02/01/19 Two Impairment Pt unable to mow longer than 10 minutes at a time Web Consultant Goal (LTG) Pt to tolerate mowing yard for 30 minutes with no increased low back pain LTG Duration 02/01/19 One Impairment Pt does not have an appropriate home exercise program Short Term Goal (STG) Pt to be independent and compliant with an appropriate HEP STG Duration 01/01/19 Assessment Summary Assessment Pt tolerating STM well, feels like everything has loosened up. Pt reports some muscle soreness with his TherEx, but it generally goes away quickly following rest. Physical Therapy Plan Frequency and Duration Frequency of Treatment 2x/Week Duration of Treatment 12 weeks Plan of Care Start Date 12/02/18 Plan of Care End Date 02/24/19 Therapeutic Interventions Therapeutic Interventions Aquatic Therapy,Home Exercise Program,Joint Mobilizations, Manual Therapy,Patient/ Caregiver Education,Self-Care/ Home Management,Soft Tissue Mobilization,Therapeutic Exercises Modalities Cold Pack/Ice Massage,Electric Stimulation,Hot Packs, Ultrasound Next Visit Focus/Plan Next Note Type Treatment Note Next Visit Plan Lumbar ROM, Core strengthening , STM
== END 2018-12-26 12:42 ==
LOC: PHYS 13:45
PROVIDERS: PCP Family Medicine; Visit Provider Family Medicine
DX: M54.5 Low back pain (principal); M51.36 Other intervertebral disc degeneration, lumbar region; M62.81 Muscle weakness (generalized)
CPT/HCPCS: 97110; 97140; 97162

== ENCOUNTER → 2019-04-12 12:39 | Outpatient (CLI) | payer OTHER, SELFPAY ==
--- NOTE | 2019-04-12 | DI.RAD.S_ITS ---
PROCEDURE: XR CHEST 2V INDICATIONS: xr chest hx of effusion TECHNIQUE: 2 views of the chest were acquired. COMPARISON: [facility], CHEST 2 VIEW, 07/04/2017, 9:46. [facility], , CHEST 1 VIEW, 08/28/2013, 7:46. FINDINGS: Surgical changes and devices: None. Lungs and pleura: Lungs are clear except for left lung base pneumonia or atelectasis mild in severity. No right-sided pleural effusions or pneumothorax bilaterally, but there is a small subpulmonic left effusion. Mediastinum: Mediastinal contours are normal. Heart size is at the upper limits of normal. Bones and chest wall: No suspicious bony abnormalities. Soft tissues appear unremarkable. IMPRESSION: Left lung base mild atelectasis or pneumonia, with associated small subpulmonic left pleural effusion. Heart size at the upper limits of normal. Dictated by: Rober Law M.D. on 04/12/2019 at 13:30 Approved by: Rober Law M.D. on 04/12/2019 at 13:31
== END ==
PROVIDERS: PCP Family Medicine; Visit Provider Family Medicine
DX: J90 Pleural effusion, not elsewhere classified (principal)
CPT/HCPCS: 71046

== ENCOUNTER → 2020-02-02 13:23 | Outpatient (CLI) | payer OTHER, SELFPAY ==
--- NOTE | 2020-02-02 | DI.MRI.S_ITS ---
PROCEDURE: MR ABDOMEN WO/W CON INDICATIONS: Other specified diseases of liver TECHNIQUE: Coronal HASTE, axial 2D FLASH in- and [id number]; axial breath-hold T2 FSE. Dynamic axial VIBE during the administration of contrast; post-contrast coronal VIBE or 2D FLASH with fat saturation from the hepatic dome to the iliac crests. Optional diffusion weighted imaging and ADC may be performed. COMPARISON: [facility], CT, CT ABDOMEN PELVIS W CON, 10/29/2017, 13:13. [facility], MR, MR ABDOMEN WO/W CON, 11/13/2017, 14:09. [facility], MR, MR LUMBAR SPINE WO CON, 12/12/2018, 12:30. Outside Film, CT, CT ANGIO CHEST PE, 03/08/2019, 14:24. [facility], MR, MR ABDOMEN WO/W CON, 10/14/2018, 16:32. [facility], MR, MR ABDOMEN WO/W CON, 03/06/2018, 17:48. FINDINGS: Image quality: Excellent. Lung bases: No basal pleural effusions. Heart size is normal. Solid organs: Liver is normal in size and unchanged in enhancement. The ovoid area of signal heterogeneity within the right hepatic lobe initially seen by CT scanning 10/29/17 and followed by additional MR scanning in 2017 and 2019 has not changed in morphology or size. The structure shows elevated diffusion signal, nodular contrast enhancement along its periphery, and delayed open fill in by contrast with overall stability and appearance consistent with mildly atypical hemangioma. This measures approximately 2.5 cm transverse and 1.5 cm AP. Gallbladder appears normal . Biliary system is non dilated. Pancreas is normal in morphology. Spleen is normal in size and enhancement. No adrenal nodules. Both kidneys demonstrate normal size and enhancement, without hydronephrosis. Nodes and vessels: No retroperitoneal or mesenteric adenopathy by size criteria. Aorta and inferior vena cava are normal in size. Bowel and peritoneum: Unenhanced bowel loops are normal in caliber. No free fluid. Bones and soft tissues: No ventral hernias. Bone marrow is normal in overall signal. 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 No follow-up recommended. Dictated by: Rober Law M.D. on 02/02/2020 at 16:41 Approved by: Rober Law M.D. on 02/02/2020 at 16:48
== END ==
PROVIDERS: PCP Family Medicine; Referring Provider Family Medicine; Visit Provider Family Medicine
DX: K76.89 Other specified diseases of liver (principal); D18.09 Hemangioma of other sites
CPT/HCPCS: 74183; A9579

== ENCOUNTER → 2020-11-27 11:41 | Outpatient (CLI) | payer OTHER, SELFPAY ==
--- NOTE | 2020-11-27 | DI.RAD.S_ITS ---
PROCEDURE: XR LUMBAR SPINE 2-3V INDICATIONS: BACK PAIN TECHNIQUE: Three views of the lumbar spine were acquired. COMPARISON: , CR, XR LUMBAR SPINE 2-3V, 11/04/2018, 16:41. FINDINGS: Bones: Five [id number]-mry-gnqiakq vertebrae are present. There are prominent, large flowing bridging osteophytes at all levels in the lumbar spine. There is severe disc degeneration at L1-2 and endplate sclerosis. Severe disc height loss at L5-S1. Severe facet arthropathy at L4-5 and L5-S1. There is endplate spurring posteriorly at multiple levels. There is normal bony alignment. No vertebral body compression fractures. No suspicious bony lesions. Soft tissues: Overlying bowel gas pattern is normal. No suspicious soft tissue calcifications. Mild abdominal aortic atherosclerotic calcification. IMPRESSION: 1. Multilevel osteophytosis, progressed in prominence compared to the prior study, including posterior endplate spurring which may cause central canal stenosis. 2. Stable severe multilevel disc height loss. 3. Progressed severe facet arthropathy in the low lumbar spine. Dictated by: Angela Valiente M.D. on 11/27/2020 at 14:32 Approved by: Angela Valiente M.D. on 11/27/2020 at 14:34
== END ==
PROVIDERS: PCP Family Medicine; Referring Provider Family Medicine; Visit Provider Family Medicine
DX: M54.9 Dorsalgia, unspecified (principal); M47.816 Spondylosis without myelopathy or radiculopathy, lumbar region; M47.817 Spondylosis without myelopathy or radiculopathy, lumbosacral region
CPT/HCPCS: 72100

== ENCOUNTER → 2020-12-18 15:37 | Outpatient (CLI) | payer OTHER, SELFPAY ==
[2020-12-18 16:45] LABS: COVID19 -Nasal RAPID Negative (Negative)
== END ==
PROVIDERS: PCP Family Medicine; Visit Provider Physical Medicine & Rehabilitation
DX: Z20.822 Contact with and (suspected) exposure to COVID-19 (principal)
CPT/HCPCS: 87635; C9803

== ENCOUNTER 2020-12-19 15:13 | Outpatient (CLI) | payer OTHER, SELFPAY ==
[2020-12-19] VITALS (9 sets, daily range): BP systolic 102–135; BP diastolic 52–78; PULSE 69–75; RESP 10–21; TEMP 37.4; O2SAT 92–95
--- NOTE | 2020-12-19 15:13 | DI.RAD.S_ITS ---
PROCEDURE: PAIN L INTERLAMINAR/CAUDAL INJ INDICATIONS: SPONDYLOSIS COMPARISON: None. FINDINGS: Fluoroscopic spot filming was performed to verify placement of spinal needles at the L4-5 level(s), as labeled on the films. Appropriate location(s) of the needle tip(s) was confirmed by injection of iodinated contrast. IMPRESSION: L4-5 needle placement as above. Dictated by: Steph Ferreira M.D. on 12/19/2020 at 17:13 Approved by: Stpeh Ferreira M.D. on 12/19/2020 at 17:14
[2020-12-19] MEDS: MIDAZOLAM 5 MG/5 ML VIAL IV (16:03)
[2020-12-19] MEDS: BUPIVACAINE 0.25% (PF) VIAL 2 ML INJ (16:11)
[2020-12-19] MEDS: BETAMETHASONE 30 MG/5 ML MDV 12 MG INJ (16:11)
[2020-12-19] MEDS: DEXAMETHASONE 10 MG/ML VIAL 20 MG INJ (16:11)
[2020-12-19] MEDS: IOPAMIDOL 15 ML VIAL 3 ML INJ (16:13)
--- NOTE | 2020-12-19 16:20 | P.PCN_ITS ---
Date/Time/Diagnoses Date of procedure: 12/19/20 Time of procedure: 16:20 Pre-procedure diagnosis: 1. HNP WITH RADICULAR FEATURES, 2. MULTILEVEL CENTRAL STENOSIS, Post-procedure diagnosis: same Procedure Notes Procedure: 1. FLUOROSCOPICALLY GUIDED CONTRAST CONTROLLED INTERLAMINAR EPIDURAL STEROID INJECTION -L4/5 Indications: David Sanchez is referred by Dr. Avila for treatment of Bilateral Foraminal Stenosis R>L LE symptoms. Physician: Rocael Savage Total Fluoroscopy time (seconds): 15 Total sedation minutes: 10 Complications: none Procedure in detail & Post-procedure care: FINDINGS Multilevel Central Spinal Stenosis with Nerve Root Compression DESCRIPTION OF PROCEDURE Fluoroscopically guided, contrast-controlled L4/5 translaminar epidural steroid injection. Following review of allergy and review of potential side effects and complications, including, but not necessarily limited to, infection, allergic reaction, local tissue breakdown, temporary as well as permanent nerve injury, paralysis, stroke and possible , the patient indicated that the patient understood and agreed to proceed. An informed consent document was signed by the patient, witnessed by a nurse, and placed in the patient's chart. Additionally, other treatment options including modalities, medications, and physical therapy were reviewed with the patient. After review of previous anaesthesic history and IV conscious sedation the patient was deemed safe to proceed with today?s procedure with IV conscious sedation as ASA class II designation. Safety time-out was performed to confirm patient ID, procedure to be performed and site of procedure. IV sedation was accomplished with a combination of 2mg of Versed was administered by the RN after DO order, titrated to patient comfort during the course of the procedure while the patient remained responsive to all verbal commands In the prone position, following sterile prep and drape of the lumbar region, the L4/5 translaminar space was identified fluoroscopically. The skin was anesthetized via a 25-gauge, 1.5inch needle with 1% lidocaine solution. At this point, a 22-gauge short bevel spinal needle was atraumatically introduced and advanced under fluoroscopic guidance into the region of the L4/5 translaminar space. Depth was confirmed on lateral view. Radiological data, including multiple fluoroscopic views of the lumbar spine, reveal a spinal needle at the L4/5 translaminar space. Lateral views then show placement of the needle in the epidural space. Subsequent views show contrast material flowing superiorly and inferiorly in the epidural space. No vascular or intrathecal uptake is observed. At this point, using loss of resistance technique with saline and air, the epidural space was entered. This was confirmed following negative aspiration with injection of approximately 1.5cc of Isovue 200, showing excellent epidural flow without vascular or intrathecal uptake. At this point, 1cc of 1% lidocaine solution combined with 3cc or 20mg of dexamethasone and 6mg betamethasone was injected without incident. The patient tolerated the procedure well without signs or symptoms of complications prior to transfer to the recovery area continued monitoring without incident. The patient was then transferred to the recovery area where they were observed for an appropriate period of time after the injection. The patient reported a VAS score of 6 prior to the procedure and a post- procedure VAS of 0. POST OP INSTRUCTIONS The patient was provided a Pain Log to continue to record their response to the target-specific procedure prior to follow-up visit with their referring physician. Additionally, specific post-injection care instructions and a contact number to our office were provided if concerns arise regarding possible complications associated with the procedure are suspected.
== END 2020-12-19 16:45 | disposition home or self-care (01) ==
LOC: RAD 15:13
PROVIDERS: PCP Family Medicine; Referring Provider Physical Medicine & Rehabilitation; Visit Provider Physical Medicine & Rehabilitation
DX: M51.16 Intervertebral disc disorders with radiculopathy, lumbar region (principal); M48.061 Spinal stenosis, lumbar region without neurogenic claudication
CPT/HCPCS: 62323; 99152; J0702; J1100; J2250; J3010

== ENCOUNTER → 2021-12-21 14:42 | Outpatient (CLI) | payer OTHER, SELFPAY ==
--- NOTE | 2021-12-21 14:43 | DI.ECHO.S_ITS ---
[facility]---------+ [facility] +---------+ : : [address] : [place] : : : : [id number] : : : : Phone: [phone]---------+ Echocardiogram Report + + :Name: XIOMY RIVAS Study Date: 12/21/2021 Height: 70 in : :[facility] ReadingLocation: Weight: 225 lb : : Gender: Male BSA: 2.2 m2 : :: 1935 Age: 86 yrs BP: 109/80 mmHg: :Reason For Study: Pulmonary - Hypertension : :Ordering Physician: DIONE, : :SHADE Performed By: Alan Malhotra : :Referring: SHADE PARHAM : + + Interpretation Summary The left ventricle is normal in size. There is mild-moderate concentric left ventricular hypertrophy. Left ventricular ejection fraction is estimated to be 65 +/- 5%. Previous LVEF 55 to 60%. The right ventricle is normal in size and function. There is mild tricuspid regurgitation. The right ventricular systolic pressure is estimated to be at least 28 mmHg based on an estimated right atrial pressure of 3 mm Hg. The aortic root is mildly dilated. 4.4 cm in diameter. Previously 4.6 cm in diameter. The ascending aorta is moderately enlarged. 4.5 cm in diameter. Unchanged from the previous study. Procedure: A two-dimensional transthoracic echocardiogram with color flow and Doppler was performed. The study quality was technically adequate. Comparison is made with the echocardiogram of 08/08/2017. The heart rate ranged between 90-105 bpm during the study. The patient had a bundle branch block rhythm during the exam. Regular rhythm however overall P waves not clear. Left Ventricle: The left ventricle is normal in size. There is mild-moderate concentric left ventricular hypertrophy. There is no thrombus. Left ventricular systolic function is normal. Left ventricular ejection fraction is estimated to be 65 +/- 5%. Septal motion is consistent with conduction abnormality. Diastolic function could not be accurately assessed due to unobtainable data. Right Ventricle: The right ventricle is normal in size and function. Atria: Both atria are normal in size. The left atrium has significantly decreased in size since the prior echo exam. The interatrial septum grossly appears intact with no obvious evidence for an atrial septal defect. The atrial septum is aneurysmal. Mitral Valve: There is mild mitral annular calcification. The mitral valve chordae are thickened and/or calcified. The mitral valve leaflets are mildly calcified. No significant mitral valve stenosis. There is trace mitral regurgitation. Aortic Valve: There is mild aortic valve sclerosis. The aortic valve is trileaflet. There is no aortic valve stenosis. There is trace aortic regurgitation. Tricuspid Valve: The tricuspid valve is normal. There is mild tricuspid regurgitation. The right ventricular systolic pressure is estimated to be at least 28 mmHg based on an estimated right atrial pressure of 3 mm Hg. Pulmonic Valve: The pulmonic valve is not well seen, but is grossly normal. There is mild pulmonic regurgitation. Great Vessels: The aortic root is mildly dilated. The ascending aorta is moderately enlarged. The IVC is of normal diameter and collapses greater than 50% with a sniff. This suggests a low right atrial pressure of 3 mm Hg. Pericardium/ Pleura There is no pericardial effusion. There is no pleural effusion. MMode/2D Measurements & Calculations LVIDd: 4.1 cm LVOT diam: 2.4 cm LVIDs: 2.8 cm Ao root diam: 4.4 cm FS: 31.6 % asc Aorta Diam: 4.5 cm IVSd: 1.3 cm LVPWd: 1.4 cm LV davies. diameter/BSA (cm/m^2): 1.9 LV sys. diameter/BSA (cm/m^2): 1.3 LA A2 area: 22.7 cm2 RA long axis: 5.0 cm LA A4 area: 20.9 cm2 RA area: 18.6 cm2 LA length (vol): 6.8 cm RA vol: 58.4 ml LA vol: 59.3 ml RA : 26.6 ml/m2 LA vol index: 27.0 ml/m2 Doppler Measurements & Calculations Ao V2 max: 155.6 cm/sec LVOT Max Haim: 86.3 cm/sec Ao V2 mean: 101.1 cm/sec LV V1 max P.0 mmHg Ao max P.7 mmHg LV V1 VTI: 15.5 cm Ao mean P.7 mmHg DANIELE(I,D): 2.8 cm2 Ao V2 VTI: 24.6 cm DANIELE(V,D): 2.5 cm2 sev ratio: 0.63 DANIELE indexed to BSA (cm^2/m^2): 1.3 Med Peak E' Haim: 16.0 cm/sec TR max haim: 248.8 cm/sec TR max P.8 mmHg SV(LVOT): 69.5 ml Reading Physician:10:36 AM
== END ==
PROVIDERS: PCP Family Medicine; Referring Provider Internal Medicine Cardiovascular Disease; Visit Provider Internal Medicine Cardiovascular Disease
DX: I07.1 Rheumatic tricuspid insufficiency (principal); I27.20 Pulmonary hypertension, unspecified; I77.810 Thoracic aortic ectasia; I77.89 Other specified disorders of arteries and arterioles
CPT/HCPCS: 93306

== ENCOUNTER → 2022-10-22 16:06 | Outpatient (CLI) | payer OTHER, SELFPAY ==
--- NOTE | 2022-10-22 | DI.MRI.S_ITS ---
PROCEDURE: MR HEAD/BRAIN WO/W CON INDICATIONS: LEFT HAND WEAKNESS TECHNIQUE: Noncontrast axial T1 spin echo, axial T2 fast spin echo, sagittal and axial FLAIR, coronal T2 fast spin echo, axial gradient echo, axial diffusion and ADC through the brain. After the administration of contrast, axial and coronal and sagittal T1 spin echo with fat saturation through the brain. COMPARISON: None. FINDINGS: Image quality: Excellent. CSF spaces: Basal cisterns are patent. No extra-axial fluid collections. Ventricles are normal in size and shape. Brain: Numerous scattered foci of abnormal diffusion-weighted signal can be seen within the left frontal lobe, with associated dark signal on the ADC maps. Developing T2 weighted signal can be seen at these sites. These foci do not enhance. No midline shift. No intracranial bleeds or masses. No abnormal intracranial enhancement. There is cerebral volume loss for age. There is periventricular white matter chronic small vessel ischemic change. The brainstem appears normal. No chronic ischemic insults. Normal intravascular flow voids are present. Note is made of a cavum septum pellucidum. When discovered in isolation, this is considered to be a developmental variant of no clinical consequence. Skull and face: Calvarial marrow is normal in signal. Orbits appear normal. Note is made of bilateral lens replacements. Sinuses: Sinuses and mastoids appear clear. 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 Given the distribution, an embolic source is suspected. Dictated by: Luciano Brambila M.D. on 10/22/2022 at 16:26 Approved by: Luciano Brambila M.D. on 10/22/2022 at 16:29
== END ==
PROVIDERS: PCP Family Medicine; Referring Provider Family Medicine; Visit Provider Family Medicine
DX: I63.9 Cerebral infarction, unspecified (principal); R29.898 Other symptoms and signs involving the musculoskeletal system
CPT/HCPCS: 70553

== ENCOUNTER → 2022-10-30 08:04 | Outpatient (CLI) | payer OTHER, SELFPAY ==
--- NOTE | 2022-10-30 | DI.US.S_ITS ---
PROCEDURE: US CAROTID DOPPLER BI INDICATIONS: CEREBRAL INFARCTION TECHNIQUE: Color and pulse Doppler interrogation was performed of both carotid systems, with image documentation and velocity measurements. COMPARISON: None. FINDINGS: Stenosis calculations are based on SRU (Society of Radiologists in Ultrasound) criteria. Right side: Brachial blood pressure: 119/72 mm Hg. Common carotid artery peak systolic velocity: 97 cm/sec. Internal carotid artery peak systolic velocity: 87 cm/sec. Internal carotid artery end diastolic velocity: 29 cm/sec. External carotid artery peak systolic velocity: 96 cm/sec. ICA/CCA peak systolic ratio: 0.9 . Lincoln scale imaging description: Mild atherosclerotic plaque Percent internal carotid artery stenosis: Less than 50 . Vertebral artery: Flow direction is antegrade. Left side: Brachial blood pressure: 111/73 mm Hg. Common carotid artery peak systolic velocity: 112 cm/sec. Internal carotid artery peak systolic velocity: 67 cm/sec. Internal carotid artery end diastolic velocity: 18.2 cm/sec. External carotid artery peak systolic velocity: 64 cm/sec. ICA/CCA peak systolic ratio: 0.6 . Lincoln scale imaging description: Atherosclerotic plaque Percent internal carotid artery stenosis: Less than 50 . Vertebral artery: Flow direction is antegrade. IMPRESSION: No evidence of hemodynamically significant stenosis, bilateral proximal ICA Approved by: Akshat King M.D. on 10/30/2022 at 12:21
== END ==
PROVIDERS: PCP Family Medicine; Referring Provider Family Medicine; Visit Provider Family Medicine
DX: I63.9 Cerebral infarction, unspecified (principal); R29.898 Other symptoms and signs involving the musculoskeletal system
CPT/HCPCS: 93880

== ENCOUNTER → 2022-11-07 14:27 | Outpatient (CLI) | payer OTHER, SELFPAY ==
--- NOTE | 2022-11-07 | DI.ECHO.S_ITS ---
[place] [facility]---------+ [facility] +---------+ : : [address] : [address] : : : : [id number] : : : : Phone: [phone]---------+ Echocardiogram Report + + :Name: XIOMY RIVAS Study Date: 11/07/2022 Height: 70 in : :[facility] ReadingLocation: Weight: 220 lb : : Gender: Male BSA: 2.2 m2 : :: 1935 Age: 87 yrs BP: 147/87 mmHg: :Reason For Study: Cerebral Infarction : :Ordering Physician: BRIANNA, : :DENISE Performed By: Cathy Mason : :Referring: DENISE REED : + + Interpretation Summary The left ventricle is normal in size. Left ventricular systolic function appears normal without focal wall motion abnormalities. The ejection fraction is estimated to be 60-65%. LVEF has not changed. The right ventricle is normal size. Right ventricular systolic function is borderline reduced. The right ventricular systolic pressure is estimated to be at least 21 mmHg based on an estimated right atrial pressure of 3 mm Hg. The left atrial size is normal. Right atrial size is normal. There is no Doppler evidence for an interatrial shunt. The atrial septum is aneurysmal. There is no significant valvular heart disease. The aortic root is mildly dilated. The ascending aorta is moderately enlarged. Procedure: A two-dimensional transthoracic echocardiogram with color flow and Doppler was performed. The study quality was technically adequate. Comparison is made with the echocardiogram of 12/21/2021. The patient was in atrial fibrillation with heart rates between 90 bpm during the exam. Left Ventricle: The left ventricle is normal in size. Left ventricular wall thickness is borderline increased. Left ventricular systolic function appears normal without focal wall motion abnormalities. The ejection fraction is estimated to be 60-65%. Diastolic function could not be accurately assessed due to atrial fibrillation. Right Ventricle: The right ventricle is normal size. Right ventricular systolic function is borderline reduced. Atria: The left atrial size is normal. Right atrial size is normal. There is no Doppler evidence for an interatrial shunt. The atrial septum is aneurysmal. Mitral Valve: The mitral valve leaflets are slightly calcified. There is no mitral valve stenosis. There is trace mitral regurgitation. Aortic Valve: The aortic valve is trileaflet. There is mild aortic valve sclerosis. There is no aortic valve stenosis. There is trace aortic regurgitation. Tricuspid Valve: The tricuspid valve is normal. There is no tricuspid stenosis. There is trace tricuspid regurgitation. The right ventricular systolic pressure is estimated to be at least 21 mmHg based on an estimated right atrial pressure of 3 mm Hg. Pulmonic Valve: The pulmonic valve is not well visualized. There is no pulmonic valvular stenosis. There is trace pulmonic regurgitation. There is no significant valvular heart disease. Great Vessels: The aortic root is mildly dilated. The ascending aorta is moderately enlarged. The pulmonary artery is normal size. The IVC is of normal diameter and collapses greater than 50% with a sniff. This suggests a low right atrial pressure of 3 mm Hg. Pericardium/ Pleura There is no pericardial effusion. There is no pleural effusion. MMode/2D Measurements & Calculations LVIDd: 5.0 cm LVOT diam: 2.0 cm LVIDs: 3.9 cm Ao root diam: 4.0 cm FS: 22.0 % asc Aorta Diam: 4.7 cm IVSd: 1.3 cm LVPWd: 1.1 cm LV davies. diameter/BSA (cm/m^2): 2.3 LV sys. diameter/BSA (cm/m^2): 1.8 LA A2 area: 25.9 cm2 RA long axis: 6.0 cm LA A4 area: 16.7 cm2 RA area: 17.4 cm2 LA length (vol): 6.9 cm RA vol: 43.1 ml LA vol: 53.1 ml RA : 19.8 ml/m2 LA vol index: 24.4 ml/m2 RVD1 (basal): 3.6 cm LVLs ap4: 6.9 cm LVLd ap2: 7.5 cm TAPSE_phl: 1.2 cm LVLs ap2: 6.3 cm Doppler Measurements & Calculations Ao V2 max: 152.0 cm/sec LVOT Max Haim: 82.7 cm/sec Ao V2 mean: 104.5 cm/sec LV V1 max P.7 mmHg Ao max P.0 mmHg LV V1 VTI: 16.9 cm Ao mean P.0 mmHg DANIELE(I,D): 1.7 cm2 Ao V2 VTI: 30.5 cm DANIELE(V,D): 1.7 cm2 sev ratio: 0.55 DANIELE indexed to BSA (cm^2/m^2): 0.80 TR max haim: 210.7 cm/sec SV(LVOT): 53.1 ml TR max P.8 mmHg PA V2 max: 78.4 cm/sec PA V2 mean: 52.5 cm/sec PA mean P.0 mmHg PA pr(Accel): 42.1 mmHg AV VR_phl: 0.54 DANIELE(VTI)/BSA_phl: 0.80 Reading Physician:04:06 PM
== END ==
PROVIDERS: PCP Family Medicine; Referring Provider Family Medicine; Visit Provider Family Medicine
DX: I63.9 Cerebral infarction, unspecified (principal); R29.898 Other symptoms and signs involving the musculoskeletal system; I77.810 Thoracic aortic ectasia; I77.89 Other specified disorders of arteries and arterioles
CPT/HCPCS: 93306

== ENCOUNTER → 2022-12-03 19:45 | Outpatient (CLI) | payer OTHER, SELFPAY ==
--- NOTE | 2022-12-03 | DI.RAD.S_ITS ---
PROCEDURE: XR LUMBAR SPINE 2-3V INDICATIONS: LBP TECHNIQUE: 3 views of the lumbar spine were acquired. COMPARISON: [facility], , XR LUMBAR SPINE 2-3V, 11/04/2018, 16:41. [facility], CR, XR LUMBAR SPINE 2-3V, 11/27/2020, 11:42. FINDINGS: Bones: 5 [id number] vertebrae are present. There is normal bony alignment. No vertebral body compression fractures. No suspicious bony lesions. Multilevel disc height loss with endplate sclerosis and spurring, most notably and severe at the L1-L2 and L5-S1 levels. Moderate facet joint arthropathy from the L3-L4 through the L5-S1 level where there is moderate neural foraminal narrowing. Multilevel flowing syndesmophytes are present throughout the thoracolumbar spine Soft tissues: Overlying bowel gas pattern is normal. No suspicious soft tissue calcifications. IMPRESSION: 1. Multilevel lumbar spine spondylosis similar prior examination. 2. Multilevel flowing syndesmophytes which can be associated with DISH and ankylosing spondylitis in the appropriate clinical setting. Findings appears similar to prior lumbar spine series dated 11/27/2020. Dictated by: Russ Tan [facility] Interpreted: Carl Archer MD on 12/03/2022 at 20:33 Transcribed by: MANDIE on 12/04/2022 at 8:17 Approved by: Carl Archer M.D. on 12/04/2022 at 12:28
== END ==
PROVIDERS: PCP Family Medicine; Referring Provider Family Medicine; Visit Provider Family Medicine
DX: M47.816 Spondylosis without myelopathy or radiculopathy, lumbar region (principal); M47.817 Spondylosis without myelopathy or radiculopathy, lumbosacral region; M54.42 Lumbago with sciatica, left side
CPT/HCPCS: 72100

== ENCOUNTER 2023-02-07 12:45 | Outpatient (RCR) | payer OTHER, SELFPAY ==
--- NOTE | 2023-01-07 17:31 | PT.OIE ---
Current Diagnoses Low back pain, unspecified (01/07/23) Past Medical History (Last Reviewed 01/26/21 @ 13:29 by Rocael Savage DO) Facet arthropathy, lumbar Herniated nucleus pulposus, L4-5 Past Surgical History (Last Reviewed 01/26/21 @ 13:29 by Rocael Savage DO) H/O knee surgery Hx of CABG Visit Care Team Role Provider Type Rocael Avila MD Attending Provider Physician Family Provider Primary Care Provider Referring Provider Specialty: Family Practice Address: [address] [place] [address], [facility] Email: [email or web address] Physical Therapy Initial Evaluation PT-OP-A Visit Information Start: 01/07/23 15:25 Freq: Status: Active Protocol: Document 01/07/23 17:20 ED (Rec: 01/07/23 17:31 ED [id number]) Out-Patient Physical Therapy Visit Information Visit Information Visit Type Initial Evaluation Visit Note 04/09 09 pre approved Visit Start Time 16:45 Visit Stop Time 17:30 Total Visit Minutes 1 Visit Number 45 Evaluation Information Evaluation Date 01/07/23 PT-OP-B Current Condition Start: 01/07/23 15:25 Freq: Status: Active Protocol: Document 01/07/23 17:20 ED (Rec: 01/07/23 17:31 ED [id number]) Current Condition History of Current Condition Onset Date 2 years Current Complaints Low back pain History of Current Condition Pt states that he has had low back pain for about 2 years. It has plateaued but still hasn't gone away completely. He states that he is unable to sleep in his bed d/t poor sleep from pain; he does much better when he sleeps in a recliner. He notes that he avoids bending over and lifting things d/t pain and also b/c of his balance. He denies participating in a formal exercise program currently. 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 He states that he has a recumbent bike and a physioball at home. PT-OP-C Subjective Start: 01/07/23 15:25 Freq: Status: Active Protocol: Document 01/07/23 17:20 ED (Rec: 01/07/23 17:31 ED [id number]) Patient Questionnaires Oswestry Low Back Index Oswestry Score 50 = 34.0 % Oswestry Impairment 20 to 39% Impaired (Score 20- 39) OP-PT Pain Assessment Location L sided low back Intensity 7 Scale Used Numeric (0 - 10) Description Pinching,Sharp,Spasm Pain Aggravating Factors Changing Position,ADL's, Activity,Exercise,Bending, Lifting PT-OP-E Functional Tests Start: 01/07/23 15:25 Freq: Status: Active Protocol: Document 01/07/23 17:20 ED (Rec: 01/07/23 17:31 ED [id number]) Functional Tests Five Times Sit to Stand Test Score 12 seconds Comments no UE support PT-OP-K Range of Motion Start: 01/07/23 15:25 Freq: Status: Active Protocol: Document 01/07/23 17:20 ED (Rec: 01/07/23 17:31 ED [id number]) Lumbar Spine Range of Motion Lumbar Spine Active Percentage Testing Position Standing Flexion 25 Comments hands to knees PT-OP-L Special Tests Start: 01/07/23 15:25 Freq: Status: Active Protocol: Document 01/07/23 17:20 ED (Rec: 01/07/23 17:31 ED [id number]) Special Tests Lumbar Spine Special Tests Slump Test Results + PT-OP-Q Treatments Start: 01/07/23 15:25 Freq: Status: Active Protocol: Document 01/07/23 17:20 ED (Rec: 01/07/23 17:31 ED [id number]) Therapeutic Exercises Sitting Exercises lumbar flexion Sitting Exercise Name PB lumbar flexion Reps/Minutes x10-20 Therapeutic Activity Therapeutic Activity squat Name STS Reps/Minutes 2x10 PT-OP-T Assessment and Plan Start: 01/07/23 15:25 Freq: Status: Active Protocol: Document 01/07/23 17:20 ED (Rec: 01/07/23 17:31 ED [id number]) Physical Therapy Assessment Rehab Potential Rehabilitation Potential Fair Evaluation Complexity Number of Personal Factors/Comorbidities 1-2 Number of Body Systems Impaired 3 Clinical Presentation at Evaluation Stable Impairments Impairments Activity Tolerance,Balance, Functional Activities, Functional Mobility,Pain,ROM, Sensation,Strength,Transfers Goals lifting objects Impairment lifting objects Short Term Goal (STG) Pt will be able to pick up operator item from 4'' step on ground. STG Duration 3 weeks Outside Industrial Sales Representative Goal (LTG) Pt will be able to pick up operator 10# object from ground without back pain. LTG Duration 6-8 weeks 5x STS Impairment 5x STS Impairment IE: 12 seconds Short Term Goal (STG) Pt will improve 5x STS to a score of 10 seconds. STG Duration 3 weeks Outside Industrial Sales Representative Goal (LTG) Pt will improve 5x STS to a score of 9 seconds. LTG Duration 6-8 weeks % improvement Impairment low back pain Short Term Goal (STG) Pt will report 15% improvement in LBP intensity/frequency during daily activities. STG Duration 3 weeks Outside Industrial Sales Representative Goal (LTG) Pt will report 40% improvement in LBP intensity/frequency during daily activities. LTG Duration 6-8 weeks Oswestry Impairment Oswestry score Impairment IE: 17 / 50 = 34.0 % Group Home Goal (LTG) Pt will improve Oswestry score by 10 points to a score <7/50 . LTG Duration 6-8 weeks HEP Impairment HEP Short Term Goal (STG) Pt will report performing HEP >3 days/week. STG Duration 3 weeks Outside Industrial Sales Representative Goal (LTG) Pt will report performing HEP >3 days/week. LTG Duration 6-8 weeks Assessment Summary Assessment Pt reported to PT for chronic low back pain. Pt very limited in overall functional mobility that is partially due to decreased balance and strength but also due to low back pain. Pt able to reach to about knee height when asked to forward bend. Pt demonstrated spinal flexion preference compared to extension so PT will start with primarily flexion based movements. PT provided patient with HEP of: seated lumbar flexion, short daily walks, and repeated sit<>stands. Pt able to perform all exercises today comfortably. Physical Therapy Plan Frequency and Duration Frequency of Treatment 2x/Week Duration of treatment (weeks) 10 Plan of Care Start Date 01/07/23 Plan of Care End Date 04/07/23 Therapeutic Interventions Therapeutic Interventions Home Exercise Program,Joint Mobilizations,Manual Therapy, Neuromuscular Re-education, Orthotic/Prosthetic Management ,Patient/Caregiver Education, Self-Care/Home Management,Soft Tissue Mobilization,Taping, Therapeutic Activities, Therapeutic Exercises
--- NOTE | 2023-01-07 17:32 | PT.OPPOC ---
Physical, Occupational & Speech Therapy At [facility] Current Diagnoses Low back pain, unspecified (01/07/23) Visit Care Team Role Provider Type Rocael Avila MD Attending Provider Physician Family Provider Primary Care Provider Referring Provider Specialty: Family Practice Address: [address] [place] [address], [id number] Email: [email or web address] Plan Of Care PT-OP-T Assessment and Plan Start: 01/07/23 15:25 Freq: Status: Active Protocol: Document 01/07/23 17:20 ED (Rec: 01/07/23 17:31 ED [id number]) Physical Therapy Assessment Rehab Potential Rehabilitation Potential Fair Evaluation Complexity Number of Personal Factors/Comorbidities 1-2 Number of Body Systems Impaired 3 Clinical Presentation at Evaluation Stable Impairments Impairments Activity Tolerance,Balance, Functional Activities, Functional Mobility,Pain,ROM, Sensation,Strength,Transfers Goals lifting objects Impairment lifting objects Short Term Goal (STG) Pt will be able to extension supervisor item from 4'' step on ground. STG Duration 3 weeks Fdc Goal (LTG) Pt will be able to extension supervisor 10# object from ground without back pain. LTG Duration 6-8 weeks 5x STS Impairment 5x STS Impairment IE: 12 seconds Short Term Goal (STG) Pt will improve 5x STS to a score of 10 seconds. STG Duration 3 weeks Oyster Fisherman Goal (LTG) Pt will improve 5x STS to a score of 9 seconds. LTG Duration 6-8 weeks % improvement Impairment low back pain Short Term Goal (STG) Pt will report 15% improvement in LBP intensity/frequency during daily activities. STG Duration 3 weeks Fdc Goal (LTG) Pt will report 40% improvement in LBP intensity/frequency during daily activities. LTG Duration 6-8 weeks Oswestry Impairment Oswestry score Impairment IE: 17 / 50 = 34.0 % Oyster Fisherman Goal (LTG) Pt will improve Oswestry score by 10 points to a score <7/50 . LTG Duration 6-8 weeks HEP Impairment HEP Short Term Goal (STG) Pt will report performing HEP >3 days/week. STG Duration 3 weeks Oyster Fisherman Goal (LTG) Pt will report performing HEP >3 days/week. LTG Duration 6-8 weeks Assessment Summary Assessment Pt reported to PT for chronic low back pain. Pt very limited in overall functional mobility that is partially due to decreased balance and strength but also due to low back pain. Pt able to reach to about knee height when asked to forward bend. Pt demonstrated spinal flexion preference compared to extension so PT will start with primarily flexion based movements. PT provided patient with HEP of: seated lumbar flexion, short daily walks, and repeated sit<>stands. Pt able to perform all exercises today comfortably. Physical Therapy Plan Frequency and Duration Frequency of Treatment 2x/Week Duration of treatment (weeks) 10 Plan of Care Start Date 01/07/23 Plan of Care End Date 04/07/23 Therapeutic Interventions Therapeutic Interventions Home Exercise Program,Joint Mobilizations,Manual Therapy, Neuromuscular Re-education, Orthotic/Prosthetic Management ,Patient/Caregiver Education, Self-Care/Home Management,Soft Tissue Mobilization,Taping, Therapeutic Activities, Therapeutic Exercises Plan of Care Dates Plan of Care Start Date 01/07/23 Plan of Care End Date 04/07/23 Electronically Signed by: Akshat Davis, PT 01/07/23 [id number] If you are in agreement with this Plan of Care, please return a signed and dated copy. I have reviewed this Plan of Care and certify that the skilled therapy services above are required to meet the patient?s needs. Physician Signature Date Printed Name and Credentials Clinical Instructor Signature Printed Name and Credentials
--- NOTE | 2023-01-09 15:00 | PT.OTN ---
Current Diagnoses Low back pain, unspecified (01/09/23) Physical Therapy Treatment Note PT-OP-A Visit Information Start: 01/07/23 15:25 Freq: Status: Active Protocol: Document 01/09/23 14:57 ED (Rec: 01/09/23 15:00 ED [id number]) Out-Patient Physical Therapy Visit Information Visit Information Visit Type Treatment Note Visit Note 05/10 Visit Start Time 14:35 Visit Stop Time 15:00 Total Visit Minutes 2 Visit Number 25 PT-OP-B Current Condition Start: 01/07/23 15:25 Freq: Status: Active Protocol: Document 01/07/23 17:20 ED (Rec: 01/07/23 17:31 ED [id number]) Current Condition History of Current Condition Onset Date 2 years Current Complaints Low back pain History of Current Condition Pt states that he has had low back pain for about 2 years. It has plateaued but still hasn't gone away completely. He states that he is unable to sleep in his bed d/t poor sleep from pain; he does much better when he sleeps in a recliner. He notes that he avoids bending over and lifting things d/t pain and also b/c of his balance. He denies participating in a formal exercise program currently. 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 He states that he has a recumbent bike and a physioball at home. PT-OP-C Subjective Start: 01/07/23 15:25 Freq: Status: Active Protocol: Document 01/09/23 14:57 ED (Rec: 01/09/23 15:00 ED [id number]) OP-PT Subjective Patient Comments Patient Comments Pt about 20 minutes late to PT today but is hopeful to have a quick session. PT-OP-E Functional Tests Start: 01/07/23 15:25 Freq: Status: Active Protocol: Document 01/07/23 17:20 ED (Rec: 01/07/23 17:31 ED [id number]) Functional Tests Five Times Sit to Stand Test Score 12 seconds Comments no UE support PT-OP-K Range of Motion Start: 01/07/23 15:25 Freq: Status: Active Protocol: Document 01/07/23 17:20 ED (Rec: 01/07/23 17:31 ED [id number]) Lumbar Spine Range of Motion Lumbar Spine Active Percentage Testing Position Standing Flexion 25 Comments hands to knees PT-OP-L Special Tests Start: 01/07/23 15:25 Freq: Status: Active Protocol: Document 01/07/23 17:20 ED (Rec: 01/07/23 17:31 ED [id number]) Special Tests Lumbar Spine Special Tests Slump Test Results + PT-OP-Q Treatments Start: 01/07/23 15:25 Freq: Status: Active Protocol: Document 01/09/23 14:57 ED (Rec: 01/09/23 15:00 ED [id number]) Cardio Equipment Other Cardio Equipment Other Cardio Equipment walk x5' Therapeutic Exercises Sitting Exercises lumbar flexion Sitting Exercise Name PB lumbar flexion Reps/Minutes 0o23-32 Standing Exercises row Standing Exercise Name cable row Resistance L2 Equipment Used cable Reps/Minutes 2x10 Comments cued for isometric hold Therapeutic Activity Therapeutic Activity hinge Name small PB RDL Reps/Minutes 2x10 squat Name STS Reps/Minutes 2x10 PT-OP-T Assessment and Plan Start: 01/07/23 15:25 Freq: Status: Active Protocol: Document 01/09/23 14:57 ED (Rec: 01/09/23 15:00 ED [id number]) Physical Therapy Assessment Goals lifting objects Impairment lifting objects Short Term Goal (STG) Pt will be able to steel pickler item from 4'' step on ground. STG Duration 3 weeks Annual Giving Officer Goal (LTG) Pt will be able to steel pickler 10# object from ground without back pain. LTG Duration 6-8 weeks 5x STS Impairment 5x STS Impairment IE: 12 seconds Short Term Goal (STG) Pt will improve 5x STS to a score of 10 seconds. STG Duration 3 weeks Annual Giving Officer Goal (LTG) Pt will improve 5x STS to a score of 9 seconds. LTG Duration 6-8 weeks % improvement Impairment low back pain Short Term Goal (STG) Pt will report 15% improvement in LBP intensity/frequency during daily activities. STG Duration 3 weeks Prison Goal (LTG) Pt will report 40% improvement in LBP intensity/frequency during daily activities. LTG Duration 6-8 weeks Oswestry Impairment Oswestry score Impairment IE: 17 / 50 = 34.0 % Annual Giving Officer Goal (LTG) Pt will improve Oswestry score by 10 points to a score <7/50 . LTG Duration 6-8 weeks HEP Impairment HEP Short Term Goal (STG) Pt will report performing HEP >3 days/week. STG Duration 3 weeks Prison Goal (LTG) Pt will report performing HEP >3 days/week. LTG Duration 6-8 weeks Assessment Summary Assessment Abbreviated session today d/t patient arriving 20 minutes late. Reviewed HEP of seated lumbar flexion using PB, sit<> stands, and walking. Pt also performed hip hinging to the floor while holding small physioball and then cable rows . Pt able to perform all movements comfortably today. Informed patient that PT will progress exercises in intensity and volume over time as he begins to tolerate more and improve in functional capacity. Physical Therapy Plan Frequency and Duration Frequency of Treatment 2x/Week Duration of treatment (weeks) 10 Plan of Care Start Date 01/07/23 Plan of Care End Date 04/07/23 Therapeutic Interventions Therapeutic Interventions Home Exercise Program,Joint Mobilizations,Manual Therapy, Neuromuscular Re-education, Orthotic/Prosthetic Management ,Patient/Caregiver Education, Self-Care/Home Management,Soft Tissue Mobilization,Taping, Therapeutic Activities, Therapeutic Exercises
--- NOTE | 2023-01-15 13:29 | PT.OTN ---
Current Diagnoses Low back pain, unspecified (01/15/23) Physical Therapy Treatment Note PT-OP-A Visit Information Start: 01/07/23 15:25 Freq: Status: Active Protocol: Document 01/15/23 13:25 ED (Rec: 01/15/23 13:29 ED [id number]) Out-Patient Physical Therapy Visit Information Visit Information Visit Type Treatment Note Visit Note 05/10 Visit Start Time 12:45 Visit Stop Time 13:25 Total Visit Minutes 40 Visit Number 3 PT-OP-B Current Condition Start: 01/07/23 15:25 Freq: Status: Active Protocol: Document 01/07/23 17:20 ED (Rec: 01/07/23 17:31 ED [id number]) Current Condition History of Current Condition Onset Date 2 years Current Complaints Low back pain History of Current Condition Pt states that he has had low back pain for about 2 years. It has plateaued but still hasn't gone away completely. He states that he is unable to sleep in his bed d/t poor sleep from pain; he does much better when he sleeps in a recliner. He notes that he avoids bending over and lifting things d/t pain and also b/c of his balance. He denies participating in a formal exercise program currently. 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 He states that he has a recumbent bike and a physioball at home. PT-OP-C Subjective Start: 01/07/23 15:25 Freq: Status: Active Protocol: Document 01/15/23 13:25 ED (Rec: 01/15/23 13:29 ED [id number]) OP-PT Subjective Patient Comments Patient Comments Pt denies having any increased pain following last session. Pt notes doing his HEP 2-3x/ day. States one of the most painful things for his back is lying supine. PT-OP-E Functional Tests Start: 01/07/23 15:25 Freq: Status: Active Protocol: Document 01/07/23 17:20 ED (Rec: 01/07/23 17:31 ED [id number]) Functional Tests Five Times Sit to Stand Test Score 12 seconds Comments no UE support PT-OP-K Range of Motion Start: 01/07/23 15:25 Freq: Status: Active Protocol: Document 01/07/23 17:20 ED (Rec: 01/07/23 17:31 ED [id number]) Lumbar Spine Range of Motion Lumbar Spine Active Percentage Testing Position Standing Flexion 25 Comments hands to knees PT-OP-L Special Tests Start: 01/07/23 15:25 Freq: Status: Active Protocol: Document 01/07/23 17:20 ED (Rec: 01/07/23 17:31 ED [id number]) Special Tests Lumbar Spine Special Tests Slump Test Results + PT-OP-Q Treatments Start: 01/07/23 15:25 Freq: Status: Active Protocol: Document 01/15/23 13:25 ED (Rec: 01/15/23 13:29 ED [id number]) Cardio Equipment Recumbent Elliptical (Biodex) Duration (Minutes) 8 Resistance 4 Therapeutic Exercises Supine Exercises LTR Reps/Minutes 3x[address] Comments cued to stay within pain tolerance ROM bridge Supine Exercise Name bridge Reps/Minutes 3x10 Comments cued to hold top position for 3 seconds Sitting Exercises leg extension Sitting Exercise Name leg extension Resistance L2 Equipment Used machine Reps/Minutes [id number] lumbar flexion Sitting Exercise Name PB lumbar flexion Reps/Minutes [id number] Standing Exercises row Standing Exercise Name cable row Resistance L2 Equipment Used cable Reps/Minutes 2x10 Comments cued for 3'' isometric hold Therapeutic Activity Therapeutic Activity hinge Name small PB RDL Reps/Minutes 3x10 squat Name STS Reps/Minutes 3x10 PT-OP-T Assessment and Plan Start: 01/07/23 15:25 Freq: Status: Active Protocol: Document 01/15/23 13:25 ED (Rec: 01/15/23 13:29 ED [id number]) Physical Therapy Assessment Goals lifting objects Impairment lifting objects Short Term Goal (STG) Pt will be able to miner pick item from 4'' step on ground. STG Duration 3 weeks Lining Brusher Goal (LTG) Pt will be able to miner pick 10# object from ground without back pain. LTG Duration 6-8 weeks 5x STS Impairment 5x STS Impairment IE: 12 seconds Short Term Goal (STG) Pt will improve 5x STS to a score of 10 seconds. STG Duration 3 weeks Longterm Goal (LTG) Pt will improve 5x STS to a score of 9 seconds. LTG Duration 6-8 weeks % improvement Impairment low back pain Short Term Goal (STG) Pt will report 15% improvement in LBP intensity/frequency during daily activities. STG Duration 3 weeks Lining Brusher Goal (LTG) Pt will report 40% improvement in LBP intensity/frequency during daily activities. LTG Duration 6-8 weeks Oswestry Impairment Oswestry score Impairment IE: 17 / 50 = 34.0 % Lining Brusher Goal (LTG) Pt will improve Oswestry score by 10 points to a score <7/50 . LTG Duration 6-8 weeks HEP Impairment HEP Short Term Goal (STG) Pt will report performing HEP >3 days/week. STG Duration 3 weeks Lining Brusher Goal (LTG) Pt will report performing HEP >3 days/week. LTG Duration 6-8 weeks Assessment Summary Assessment Pt able to perform all movements with minimal pain today with exception of lying on plinth but pain was reduced when his knees were bent into hooklying position. Pt performed exercises including sit<>stands, deadlifts, rows, and repeated lumbar flexion. Denied any pain during those movements. Informed patient he may be sore in subsequent 24- 48 hours. Physical Therapy Plan Frequency and Duration Frequency of Treatment 2x/Week Duration of treatment (weeks) 10 Plan of Care Start Date 01/07/23 Plan of Care End Date 04/07/23 Therapeutic Interventions Therapeutic Interventions Home Exercise Program,Joint Mobilizations,Manual Therapy, Neuromuscular Re-education, Orthotic/Prosthetic Management ,Patient/Caregiver Education, Self-Care/Home Management,Soft Tissue Mobilization,Taping, Therapeutic Activities, Therapeutic Exercises
--- NOTE | 2023-01-22 13:25 | PT.OTN ---
Current Diagnoses Low back pain, unspecified (01/22/23) Physical Therapy Treatment Note PT-OP-A Visit Information Start: 01/07/23 15:25 Freq: Status: Active Protocol: Document 01/22/23 13:20 ED (Rec: 01/22/23 13:25 ED [id number]) Out-Patient Physical Therapy Visit Information Visit Information Visit Type Treatment Note Visit Note 07/08 Visit Start Time 12:45 Visit Stop Time 13:25 Total Visit Minutes 40 Visit Number 4 PT-OP-B Current Condition Start: 01/07/23 15:25 Freq: Status: Active Protocol: Document 01/07/23 17:20 ED (Rec: 01/07/23 17:31 ED [id number]) Current Condition History of Current Condition Onset Date 2 years Current Complaints Low back pain History of Current Condition Pt states that he has had low back pain for about 2 years. It has plateaued but still hasn't gone away completely. He states that he is unable to sleep in his bed d/t poor sleep from pain; he does much better when he sleeps in a recliner. He notes that he avoids bending over and lifting things d/t pain and also b/c of his balance. He denies participating in a formal exercise program currently. 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 He states that he has a recumbent bike and a physioball at home. PT-OP-C Subjective Start: 01/07/23 15:25 Freq: Status: Active Protocol: Document 01/22/23 13:20 ED (Rec: 01/22/23 13:25 ED [id number]) OP-PT Subjective Patient Comments Patient Comments Pt states he does sit<>stands and the lumbar flexion exercises at home. Denies any improvements in back pain since starting PT. States he always has muscle tension/ soreness. PT-OP-E Functional Tests Start: 01/07/23 15:25 Freq: Status: Active Protocol: Document 01/07/23 17:20 ED (Rec: 01/07/23 17:31 ED [id number]) Functional Tests Five Times Sit to Stand Test Score 12 seconds Comments no UE support PT-OP-K Range of Motion Start: 01/07/23 15:25 Freq: Status: Active Protocol: Document 01/07/23 17:20 ED (Rec: 01/07/23 17:31 ED [id number]) Lumbar Spine Range of Motion Lumbar Spine Active Percentage Testing Position Standing Flexion 25 Comments hands to knees PT-OP-L Special Tests Start: 01/07/23 15:25 Freq: Status: Active Protocol: Document 01/07/23 17:20 ED (Rec: 01/07/23 17:31 ED [id number]) Special Tests Lumbar Spine Special Tests Slump Test Results + PT-OP-Q Treatments Start: 01/07/23 15:25 Freq: Status: Active Protocol: Document 01/22/23 13:20 ED (Rec: 01/22/23 13:25 ED [id number]) Cardio Equipment Recumbent Elliptical (Biodex) Duration (Minutes) 8 Resistance 4 Therapeutic Exercises Sitting Exercises lumbar flexion Sitting Exercise Name PB lumbar flexion Reps/Minutes [id number] Standing Exercises row Standing Exercise Name cable row Resistance L2 Equipment Used cable Reps/Minutes 2x10 Comments cued for 3'' isometric hold Therapeutic Activity Therapeutic Activity hinge Name small PB RDL Reps/Minutes 3x10 squat Name STS Reps/Minutes 3x10 Comments 10# PT-OP-T Assessment and Plan Start: 01/07/23 15:25 Freq: Status: Active Protocol: Document 01/22/23 13:20 ED (Rec: 01/22/23 13:25 ED [id number]) Physical Therapy Assessment Goals lifting objects Impairment lifting objects Short Term Goal (STG) Pt will be able to pick and shovel man item from 4'' step on ground. STG Duration 3 weeks -MET Valet Cashier Goal (LTG) Pt will be able to pick and shovel man 10# object from ground without back pain. LTG Duration 6-8 weeks 5x STS Impairment 5x STS Impairment IE: 12 seconds Short Term Goal (STG) Pt will improve 5x STS to a score of 10 seconds. STG Duration 3 weeks Fdc Goal (LTG) Pt will improve 5x STS to a score of 9 seconds. LTG Duration 6-8 weeks % improvement Impairment low back pain Short Term Goal (STG) Pt will report 15% improvement in LBP intensity/frequency during daily activities. STG Duration 3 weeks Valet Cashier Goal (LTG) Pt will report 40% improvement in LBP intensity/frequency during daily activities. LTG Duration 6-8 weeks Oswestry Impairment Oswestry score Impairment IE: 17 / 50 = 34.0 % Valet Cashier Goal (LTG) Pt will improve Oswestry score by 10 points to a score <7/50 . LTG Duration 6-8 weeks HEP Impairment HEP Short Term Goal (STG) Pt will report performing HEP >3 days/week. STG Duration 3 weeks Valet Cashier Goal (LTG) Pt will report performing HEP >3 days/week. LTG Duration 6-8 weeks Assessment Summary Assessment Pt able to perform all movements with minimal pain today Pt performed exercises including sit<>stands, deadlifts, rows, and repeated lumbar flexion. Denied any pain during those movements. Physical Therapy Plan Frequency and Duration Frequency of Treatment 2x/Week Duration of treatment (weeks) 10 Plan of Care Start Date 01/07/23 Plan of Care End Date 04/07/23 Therapeutic Interventions Therapeutic Interventions Home Exercise Program,Joint Mobilizations,Manual Therapy, Neuromuscular Re-education, Orthotic/Prosthetic Management ,Patient/Caregiver Education, Self-Care/Home Management,Soft Tissue Mobilization,Taping, Therapeutic Activities, Therapeutic Exercises
--- NOTE | 2023-01-29 15:52 | PT.OTN ---
Current Diagnoses Low back pain, unspecified (01/29/23) Physical Therapy Treatment Note PT-OP-A Visit Information Start: 01/07/23 15:25 Freq: Status: Active Protocol: Document 01/29/23 15:48 ED (Rec: 01/29/23 15:52 ED [id number]) Out-Patient Physical Therapy Visit Information Visit Information Visit Type Treatment Note Visit Note 08/07 Visit Start Time 15:15 Visit Stop Time 15:50 Total Visit Minutes 35 Visit Number 5 PT-OP-B Current Condition Start: 01/07/23 15:25 Freq: Status: Active Protocol: Document 01/07/23 17:20 ED (Rec: 01/07/23 17:31 ED [id number]) Current Condition History of Current Condition Onset Date 2 years Current Complaints Low back pain History of Current Condition Pt states that he has had low back pain for about 2 years. It has plateaued but still hasn't gone away completely. He states that he is unable to sleep in his bed d/t poor sleep from pain; he does much better when he sleeps in a recliner. He notes that he avoids bending over and lifting things d/t pain and also b/c of his balance. He denies participating in a formal exercise program currently. 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 He states that he has a recumbent bike and a physioball at home. PT-OP-C Subjective Start: 01/07/23 15:25 Freq: Status: Active Protocol: Document 01/29/23 15:48 ED (Rec: 01/29/23 15:52 ED [id number]) OP-PT Subjective Patient Comments Patient Comments Pt states he had a cyst removed from his head the other day and wants to take it easy today; he was going to cancel but decided he would come to PT. PT-OP-E Functional Tests Start: 01/07/23 15:25 Freq: Status: Active Protocol: Document 01/07/23 17:20 ED (Rec: 01/07/23 17:31 ED [id number]) Functional Tests Five Times Sit to Stand Test Score 12 seconds Comments no UE support PT-OP-K Range of Motion Start: 01/07/23 15:25 Freq: Status: Active Protocol: Document 01/07/23 17:20 ED (Rec: 01/07/23 17:31 ED [id number]) Lumbar Spine Range of Motion Lumbar Spine Active Percentage Testing Position Standing Flexion 25 Comments hands to knees PT-OP-L Special Tests Start: 01/07/23 15:25 Freq: Status: Active Protocol: Document 01/07/23 17:20 ED (Rec: 01/07/23 17:31 ED [id number]) Special Tests Lumbar Spine Special Tests Slump Test Results + PT-OP-Q Treatments Start: 01/07/23 15:25 Freq: Status: Active Protocol: Document 01/29/23 15:48 ED (Rec: 01/29/23 15:52 ED [id number]) Cardio Equipment Recumbent Bicycle Duration (Minutes) 8 Seat Position 5 Therapeutic Exercises Sitting Exercises lumbar flexion Sitting Exercise Name PB lumbar flexion Reps/Minutes [id number] Standing Exercises row Standing Exercise Name unilateral cable row Resistance L2 Equipment Used cable Reps/Minutes 2x10 Comments cued for 3'' isometric hold Therapeutic Activity Therapeutic Activity hinge Name small PB RDL Reps/Minutes 3x10 squat Name STS Reps/Minutes 3x10 Comments 10# PT-OP-T Assessment and Plan Start: 01/07/23 15:25 Freq: Status: Active Protocol: Document 01/29/23 15:48 ED (Rec: 01/29/23 15:52 ED [id number]) Physical Therapy Assessment Goals lifting objects Impairment lifting objects Short Term Goal (STG) Pt will be able to car pick up driver item from 4'' step on ground. STG Duration 3 weeks -MET Accounting Office Manager Goal (LTG) Pt will be able to car pick up driver 10# object from ground without back pain. LTG Duration 6-8 weeks 5x STS Impairment 5x STS Impairment IE: 12 seconds Short Term Goal (STG) Pt will improve 5x STS to a score of 10 seconds. STG Duration 3 weeks Accounting Office Manager Goal (LTG) Pt will improve 5x STS to a score of 9 seconds. LTG Duration 6-8 weeks % improvement Impairment low back pain Short Term Goal (STG) Pt will report 15% improvement in LBP intensity/frequency during daily activities. STG Duration 3 weeks Senior Living Goal (LTG) Pt will report 40% improvement in LBP intensity/frequency during daily activities. LTG Duration 6-8 weeks Oswestry Impairment Oswestry score Impairment IE: 17 / 50 = 34.0 % Senior Living Goal (LTG) Pt will improve Oswestry score by 10 points to a score <7/50 . LTG Duration 6-8 weeks HEP Impairment HEP Short Term Goal (STG) Pt will report performing HEP >3 days/week. STG Duration 3 weeks Senior Living Goal (LTG) Pt will report performing HEP >3 days/week. LTG Duration 6-8 weeks Assessment Summary Assessment Pt tolerated treatment well. Pt performed exercises including sit<>stands, deadlifts, rows, and repeated lumbar flexion. Included longer rest breaks today as patient stated at beginning he that he didn't feel 100% in regards to energy levels and capabilities. Physical Therapy Plan Frequency and Duration Frequency of Treatment 2x/Week Duration of treatment (weeks) 10 Plan of Care Start Date 01/07/23 Plan of Care End Date 04/07/23 Therapeutic Interventions Therapeutic Interventions Home Exercise Program,Joint Mobilizations,Manual Therapy, Neuromuscular Re-education, Orthotic/Prosthetic Management ,Patient/Caregiver Education, Self-Care/Home Management,Soft Tissue Mobilization,Taping, Therapeutic Activities, Therapeutic Exercises
--- NOTE | 2023-01-31 13:26 | PT.OTN ---
Current Diagnoses Low back pain, unspecified (01/31/23) Physical Therapy Treatment Note PT-OP-A Visit Information Start: 01/07/23 15:25 Freq: Status: Active Protocol: Document 01/31/23 13:21 ED (Rec: 01/31/23 13:25 ED [id number]) Out-Patient Physical Therapy Visit Information Visit Information Visit Type Treatment Note Visit Note 09/07 Visit Start Time 12:45 Visit Stop Time 13:25 Total Visit Minutes 40 Visit Number 6 PT-OP-B Current Condition Start: 01/07/23 15:25 Freq: Status: Active Protocol: Document 01/07/23 17:20 ED (Rec: 01/07/23 17:31 ED [id number]) Current Condition History of Current Condition Onset Date 2 years Current Complaints Low back pain History of Current Condition Pt states that he has had low back pain for about 2 years. It has plateaued but still hasn't gone away completely. He states that he is unable to sleep in his bed d/t poor sleep from pain; he does much better when he sleeps in a recliner. He notes that he avoids bending over and lifting things d/t pain and also b/c of his balance. He denies participating in a formal exercise program currently. 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 He states that he has a recumbent bike and a physioball at home. PT-OP-C Subjective Start: 01/07/23 15:25 Freq: Status: Active Protocol: Document 01/31/23 13:21 ED (Rec: 01/31/23 13:25 ED [id number]) OP-PT Subjective Patient Comments Patient Comments Pt walks into clinic and states that he feels like he is moving better and with less difficulty. Has been doing sit<>stands throughtout the day. Recognizes that it's easy to say no to exercising but has been trying to do more of it now. PT-OP-E Functional Tests Start: 01/07/23 15:25 Freq: Status: Active Protocol: Document 01/07/23 17:20 ED (Rec: 01/07/23 17:31 ED [id number]) Functional Tests Five Times Sit to Stand Test Score 12 seconds Comments no UE support PT-OP-K Range of Motion Start: 10/10/23 15:25 Freq: Status: Active Protocol: Document 01/07/23 17:20 ED (Rec: 01/07/23 17:31 ED [id number]) Lumbar Spine Range of Motion Lumbar Spine Active Percentage Testing Position Standing Flexion 25 Comments hands to knees PT-OP-L Special Tests Start: 01/07/23 15:25 Freq: Status: Active Protocol: Document 01/07/23 17:20 ED (Rec: 01/07/23 17:31 ED [id number]) Special Tests Lumbar Spine Special Tests Slump Test Results + PT-OP-Q Treatments Start: 01/07/23 15:25 Freq: Status: Active Protocol: Document 01/31/23 13:21 ED (Rec: 01/31/23 13:25 ED [id number]) Cardio Equipment Recumbent Bicycle Duration (Minutes) 8 Seat Position 5 Therapeutic Exercises Sitting Exercises lumbar flexion Sitting Exercise Name PB lumbar flexion Reps/Minutes 5l25-18 Standing Exercises row Standing Exercise Name cable row SS lat pull down Resistance L3 Equipment Used cable Reps/Minutes 3x10 Comments cued for 3'' isometric hold Therapeutic Activity Therapeutic Activity hinge Name RDL Reps/Minutes 3x10 Comments 10# squat Name STS Reps/Minutes 3x10 Comments 10# PT-OP-T Assessment and Plan Start: 01/07/23 15:25 Freq: Status: Active Protocol: Document 01/31/23 13:21 ED (Rec: 01/31/23 13:25 ED [id number]) Physical Therapy Assessment Goals lifting objects Impairment lifting objects Short Term Goal (STG) Pt will be able to cone picker item from 4'' step on ground. STG Duration 3 weeks -[facility] Goal (LTG) Pt will be able to cone picker 10# object from ground without back pain. LTG Duration 6-8 weeks 5x STS Impairment 5x STS Impairment IE: 12 seconds Short Term Goal (STG) Pt will improve 5x STS to a score of 10 seconds. STG Duration 3 weeks Nursing Home Aide Goal (LTG) Pt will improve 5x STS to a score of 9 seconds. LTG Duration 6-8 weeks % improvement Impairment low back pain Short Term Goal (STG) Pt will report 15% improvement in LBP intensity/frequency during daily activities. STG Duration 3 weeks Nursing Home Aide Goal (LTG) Pt will report 40% improvement in LBP intensity/frequency during daily activities. LTG Duration 6-8 weeks Oswestry Impairment Oswestry score Impairment IE: 17 / 50 = 34.0 % Nursing Home Aide Goal (LTG) Pt will improve Oswestry score by 10 points to a score <7/50 . LTG Duration 6-8 weeks HEP Impairment HEP Short Term Goal (STG) Pt will report performing HEP >3 days/week. STG Duration 3 weeks Nursing Home Aide Goal (LTG) Pt will report performing HEP >3 days/week. LTG Duration 6-8 weeks Assessment Summary Assessment Pt able to perform 10# RDLs today to a 4'' block; PT focused on compound movements to improve LE strength, functional mobility, and improve load tolerance to low back. Pt did not report pain during any of the movements today. Pt stated he would like to continue with PT and scheduled additional visits next week. Physical Therapy Plan Frequency and Duration Frequency of Treatment 2x/Week Duration of treatment (weeks) 10 Plan of Care Start Date 01/07/23 Plan of Care End Date 04/07/23 Therapeutic Interventions Therapeutic Interventions Home Exercise Program,Joint Mobilizations,Manual Therapy, Neuromuscular Re-education, Orthotic/Prosthetic Management ,Patient/Caregiver Education, Self-Care/Home Management,Soft Tissue Mobilization,Taping, Therapeutic Activities, Therapeutic Exercises
--- NOTE | 2023-02-05 13:25 | PT.OTN ---
Current Diagnoses Low back pain, unspecified (02/05/23) Physical Therapy Treatment Note PT-OP-A Visit Information Start: 01/07/23 15:25 Freq: Status: Active Protocol: Document 02/05/23 13:19 ED (Rec: 02/05/23 13:25 ED [id number]) Out-Patient Physical Therapy Visit Information Visit Information Visit Type Treatment Note Visit Note 10/07 Visit Start Time 12:45 Visit Stop Time 13:25 Total Visit Minutes 40 Visit Number 7 PT-OP-B Current Condition Start: 01/07/23 15:25 Freq: Status: Active Protocol: Document 01/07/23 17:20 ED (Rec: 01/07/23 17:31 ED [id number]) Current Condition History of Current Condition Onset Date 2 years Current Complaints Low back pain History of Current Condition Pt states that he has had low back pain for about 2 years. It has plateaued but still hasn't gone away completely. He states that he is unable to sleep in his bed d/t poor sleep from pain; he does much better when he sleeps in a recliner. He notes that he avoids bending over and lifting things d/t pain and also b/c of his balance. He denies participating in a formal exercise program currently. 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 He states that he has a recumbent bike and a physioball at home. PT-OP-C Subjective Start: 01/07/23 15:25 Freq: Status: Active Protocol: Document 02/05/23 13:19 ED (Rec: 02/05/23 13:25 ED [id number]) OP-PT Subjective Patient Comments Patient Comments Pt states that his back doesn' t feel much different since he started PT. Is unsure if he wants to schedule more PT after he finishes his remaining appointments. PT-OP-E Functional Tests Start: 01/07/23 15:25 Freq: Status: Active Protocol: Document 01/07/23 17:20 ED (Rec: 01/07/23 17:31 ED [id number]) Functional Tests Five Times Sit to Stand Test Score 12 seconds Comments no UE support PT-OP-K Range of Motion Start: 01/07/23 15:25 Freq: Status: Active Protocol: Document 01/07/23 17:20 ED (Rec: 01/07/23 17:31 ED [id number]) Lumbar Spine Range of Motion Lumbar Spine Active Percentage Testing Position Standing Flexion 25 Comments hands to knees PT-OP-L Special Tests Start: 01/07/23 15:25 Freq: Status: Active Protocol: Document 01/07/23 17:20 ED (Rec: 01/07/23 17:31 ED [id number]) Special Tests Lumbar Spine Special Tests Slump Test Results + PT-OP-Q Treatments Start: 01/07/23 15:25 Freq: Status: Active Protocol: Document 02/05/23 13:19 ED (Rec: 02/05/23 13:25 ED [id number]) Cardio Equipment Recumbent Bicycle Duration (Minutes) 8 Seat Position 5 Therapeutic Exercises Supine Exercises LTR Reps/Minutes 3x[address] Comments cued to stay within pain tolerance ROM bridge Supine Exercise Name bridge Reps/Minutes 3x10 Comments cued to hold top position for 3 seconds Sitting Exercises lat pull down Sitting Exercise Name lat pull down Resistance L4 Equipment Used machine Reps/Minutes 2x10 lumbar flexion Sitting Exercise Name PB lumbar flexion Reps/Minutes [id number] Therapeutic Activity Therapeutic Activity hinge Name RDL Reps/Minutes 3x10 Comments 10# to 4'' box squat Name STS Reps/Minutes 4x10 Comments 10# PT-OP-T Assessment and Plan Start: 01/07/23 15:25 Freq: Status: Active Protocol: Document 02/05/23 13:19 ED (Rec: 02/05/23 13:25 ED [id number]) Physical Therapy Assessment Goals lifting objects Impairment lifting objects Short Term Goal (STG) Pt will be able to pickling operator item from 4'' step on ground. STG Duration 3 weeks -MET Clinical Geneticist Goal (LTG) Pt will be able to pickling operator 10# object from ground without back pain. LTG Duration 6-8 weeks 5x STS Impairment 5x STS Impairment IE: 12 seconds Short Term Goal (STG) Pt will improve 5x STS to a score of 10 seconds. STG Duration 3 weeks Correction Goal (LTG) Pt will improve 5x STS to a score of 9 seconds. LTG Duration 6-8 weeks % improvement Impairment low back pain Short Term Goal (STG) Pt will report 15% improvement in LBP intensity/frequency during daily activities. STG Duration 3 weeks Clinical Geneticist Goal (LTG) Pt will report 40% improvement in LBP intensity/frequency during daily activities. LTG Duration 6-8 weeks Oswestry Impairment Oswestry score Impairment IE: 17 / 50 = 34.0 % Correction Goal (LTG) Pt will improve Oswestry score by 10 points to a score <7/50 . LTG Duration 6-8 weeks HEP Impairment HEP Short Term Goal (STG) Pt will report performing HEP >3 days/week. STG Duration 3 weeks Clinical Geneticist Goal (LTG) Pt will report performing HEP >3 days/week. LTG Duration 6-8 weeks Assessment Summary Assessment Pt had back pain only during supine exercises today which included LTRs and bridges. No pain was reported during sit<> stands or hip hinging movements. PT demonstrated the log roll technique for patient but he declined wanting further practice in it today. Will f/u at next appointment on log roll. Physical Therapy Plan Frequency and Duration Frequency of Treatment 2x/Week Duration of treatment (weeks) 10 Plan of Care Start Date 01/07/23 Plan of Care End Date 04/07/23 Therapeutic Interventions Therapeutic Interventions Home Exercise Program,Joint Mobilizations,Manual Therapy, Neuromuscular Re-education, Orthotic/Prosthetic Management ,Patient/Caregiver Education, Self-Care/Home Management,Soft Tissue Mobilization,Taping, Therapeutic Activities, Therapeutic Exercises Next Visit Focus/Plan Next Note Type Progress Note Next Visit Plan 5x STS (12), Oswestry (17/50), log roll technique, 10# from ground
--- NOTE | 2023-02-07 13:11 | PT.OPDS ---
Current Diagnoses Low back pain, unspecified (02/07/23) Visit Care Team Role Provider Type Rocael Avila MD Attending Provider Physician Family Provider Primary Care Provider Referring Provider Specialty: Family Practice Address: [address] [place] [address], [facility] [place], [facility] Email: [email or web address] Visit Number Visit Number 8 Discharge Summary PT-OP-B Current Condition Start: 01/07/23 15:25 Freq: Status: Active Protocol: Document 01/07/23 17:20 ED (Rec: 01/07/23 17:31 ED [id number]) Current Condition History of Current Condition Onset Date 2 years Current Complaints Low back pain History of Current Condition Pt states that he has had low back pain for about 2 years. It has plateaued but still hasn't gone away completely. He states that he is unable to sleep in his bed d/t poor sleep from pain; he does much better when he sleeps in a recliner. He notes that he avoids bending over and lifting things d/t pain and also b/c of his balance. He denies participating in a formal exercise program currently. 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 He states that he has a recumbent bike and a physioball at home. PT-OP-C Subjective Start: 01/07/23 15:25 Freq: Status: Active Protocol: Document 02/07/23 13:06 ED (Rec: 02/07/23 13:11 ED [id number]) OP-PT Subjective Patient Comments Patient Comments Pt reports for last scheduled PT. States his back doesn't feel like the pain went down much but the pain also doesn't limit him much in his day to day activities. It's mostly when he is lying down. PT-OP-E Functional Tests Start: 01/07/23 15:25 Freq: Status: Active Protocol: Document 01/07/23 17:20 ED (Rec: 01/07/23 17:31 ED [id number]) Functional Tests Five Times Sit to Stand Test Score 12 seconds Comments no UE support PT-OP-K Range of Motion Start: 01/07/23 15:25 Freq: Status: Active Protocol: Document 01/07/23 17:20 ED (Rec: 01/07/23 17:31 ED [id number]) Lumbar Spine Range of Motion Lumbar Spine Active Percentage Testing Position Standing Flexion 25 Comments hands to knees PT-OP-L Special Tests Start: 01/07/23 15:25 Freq: Status: Active Protocol: Document 01/07/23 17:20 ED (Rec: 01/07/23 17:31 ED [id number]) Special Tests Lumbar Spine Special Tests Slump Test Results + PT-OP-T Assessment and Plan Start: 01/07/23 15:25 Freq: Status: Active Protocol: Document 02/07/23 13:06 ED (Rec: 02/07/23 13:11 ED [id number]) Physical Therapy Assessment Goals lifting objects Impairment lifting objects Short Term Goal (STG) Pt will be able to cloth picker item from 4'' step on ground. STG Duration 3 weeks -MET Gas Check Pad Maker Goal (LTG) Pt will be able to cloth picker 10# object from ground without back pain. LTG Duration 6-8 weeks -MET 5x STS Impairment 5x STS Impairment IE: 12 seconds Short Term Goal (STG) Pt will improve 5x STS to a score of 10 seconds. STG Duration 3 weeks -MET Residential Goal (LTG) Pt will improve 5x STS to a score of 9 seconds. LTG Duration 6-8 weeks -NOT MET % improvement Impairment low back pain Short Term Goal (STG) Pt will report 15% improvement in LBP intensity/frequency during daily activities. STG Duration 3 weeks Residential Goal (LTG) Pt will report 40% improvement in LBP intensity/frequency during daily activities. LTG Duration 6-8 weeks Oswestry Impairment Oswestry score Impairment IE: 17 / 50 = 34.0 % Residential Goal (LTG) Pt will improve Oswestry score by 10 points to a score <7/50 . LTG Duration 6-8 weeks HEP Impairment HEP Short Term Goal (STG) Pt will report performing HEP >3 days/week. STG Duration 3 weeks Gas Check Pad Maker Goal (LTG) Pt will report performing HEP >3 days/week. LTG Duration 6-8 weeks Assessment Summary Assessment Pt will be discharged from PT at this time. Pt reported modest improvements in strength and flexibility of his trunk and LEs but minimal improvements in back pain . Back pain was most prevalent when in bed and during bed mobility. PT instructed patient in log roll technique today and also encouraged patient to try sleeping in a recliner as a way to improve sleep quality without back pain. Pt met goals of improving 5x sit<>stand test to 10 seconds or less and another goal of being able to cloth picker 10# from the ground without low back pain. Physical Therapy Plan Discharge Physical Therapy Discharge Reasons Plateau in Progress
== END 2023-02-11 08:41 | disposition home or self-care (01) ==
LOC: PHYS 12:45
PROVIDERS: Family Provider Family Medicine; PCP Family Medicine; Referring Provider Family Medicine; Visit Provider Family Medicine
DX: M54.50 Low back pain, unspecified (principal)
CPT/HCPCS: 97110; 97162; 97530

== ENCOUNTER → 2023-07-23 15:37 | Outpatient (CLI) | payer OTHER, SELFPAY ==
--- NOTE | 2023-07-23 15:40 | DI.RAD.S_ITS ---
PROCEDURE: XR HIP W PEL IF DONE RT 2V INDICATIONS: HIP PAIN TECHNIQUE: 2 views of the hip were acquired. COMPARISON: None. FINDINGS: Bones: No fractures or dislocations. No suspicious bony lesions. The visualized pelvic ring appears intact. Moderate bilateral hip joint space narrowing with degenerative changes noted involving the lower lumbar spine Soft tissues: No suspicious soft tissue calcifications or masses. IMPRESSION: Bilateral moderate hip joint space narrowing Approved by: Akshat King M.D. on 07/23/2023 at 18:34
== END ==
LOC: RAD 15:38
PROVIDERS: Family Provider Family Medicine; PCP Family Medicine; Referring Provider Family Medicine; Visit Provider Family Medicine
DX: M25.551 Pain in right hip (principal)
CPT/HCPCS: 73502

== ENCOUNTER → 2023-08-11 14:41 | Outpatient (CLI) | payer OTHER, SELFPAY ==
--- NOTE | 2023-08-11 14:43 | DI.RAD.S_ITS ---
PROCEDURE: XR LUMBAR SPINE 2-3V INDICATIONS: BACK PAIN TECHNIQUE: 3 views of the lumbar spine were acquired. COMPARISON: [facility], CR, XR LUMBAR SPINE 2-3V, 12/03/2022, 19:56. FINDINGS: Bones: Study limited to patient motion artifact. 5 [id number] vertebrae are present. There is stable bony alignment. No acute vertebral body compression fractures. No suspicious bony lesions. Redemonstration of degenerative endplate changes, endplate osteophyte formation, and multiple flowing anterior syndesmophytes. No significant interval change in degree of intervertebral disc height loss. Moderate multilevel facet arthropathy. Soft tissues: Overlying bowel gas pattern is normal. No suspicious soft tissue calcifications. IMPRESSION: Lumbar spine without acute fracture or malalignment. Stable appearance of multilevel thoracolumbar spondylosis. Redemonstration of flowing anterior syndesmophytes with relatively preserved intervertebral disc space. Findings may be seen with diffuse idiopathic skeletal hyperostosis (DISH) or ankylosing spondylitis. Recommend clinical correlation. Dictated by: Leonides Mcgregor M.D. on 08/11/2023 at 16:34 Approved by: Leonides Mcgregor M.D. on 08/11/2023 at 16:38
== END ==
PROVIDERS: Family Provider Family Medicine; PCP Family Medicine; Referring Provider Family Medicine; Visit Provider Family Medicine
DX: M47.815 Spondylosis without myelopathy or radiculopathy, thoracolumbar region (principal); M54.42 Lumbago with sciatica, left side; M54.41 Lumbago with sciatica, right side
CPT/HCPCS: 72100

== ENCOUNTER → 2023-08-27 14:32 | Outpatient (ROUT) | payer OTHER, SELFPAY | PROVIDERS: Family Provider Family Medicine; PCP Family Medicine; Visit Provider Dermatology | DX: L08.9 Local infection of the skin and subcutaneous tissue, unspecified (principal) | CPT/HCPCS: 87070; 87075; 87077; 87186; 87205 ==

== ENCOUNTER → 2023-10-08 11:04 | Outpatient (ROUT) | payer OTHER, SELFPAY | PROVIDERS: Family Provider Family Medicine; PCP Family Medicine; Visit Provider Dermatology | DX: C44.329 Squamous cell carcinoma of skin of other parts of face (principal) | CPT/HCPCS: 87070; 87077; 87186; 87205 ==

== ENCOUNTER → 2023-10-17 09:00 | Outpatient (CLI) | payer OTHER, SELFPAY | LOC: WC 09:01 | PROVIDERS: Family Provider Family Medicine; PCP Family Medicine; Referring Provider Family Medicine; Visit Provider Physician Assistant | DX: S01.00XA Unspecified open wound of scalp, initial encounter (principal); L98.8 Other specified disorders of the skin and subcutaneous tissue; C44.42 Squamous cell carcinoma of skin of scalp and neck; I10 Essential (primary) hypertension; Z79.52 Long term (current) use of systemic steroids | CPT/HCPCS: 97597; 97598; 99204; 99213 ==

== ENCOUNTER → 2023-10-24 14:29 | Outpatient (CLI) | payer OTHER, SELFPAY | LOC: WC 14:30 | PROVIDERS: Family Provider Family Medicine; PCP Family Medicine; Referring Provider Family Medicine; Visit Provider Physician Assistant | DX: T81.89XA Other complications of procedures, not elsewhere classified, initial encounter (principal); S01.00XA Unspecified open wound of scalp, initial encounter; L98.8 Other specified disorders of the skin and subcutaneous tissue; Z79.52 Long term (current) use of systemic steroids | CPT/HCPCS: 11042; 11045; 99213 ==

== ENCOUNTER → 2023-10-31 14:23 | Outpatient (CLI) | payer OTHER, SELFPAY | LOC: WC 14:24 | PROVIDERS: Family Provider Family Medicine; PCP Family Medicine; Referring Provider Family Medicine; Visit Provider Physician Assistant | DX: T81.89XA Other complications of procedures, not elsewhere classified, initial encounter (principal); S01.00XA Unspecified open wound of scalp, initial encounter; L98.8 Other specified disorders of the skin and subcutaneous tissue; C44.42 Squamous cell carcinoma of skin of scalp and neck; I10 Essential (primary) hypertension; Z79.52 Long term (current) use of systemic steroids | CPT/HCPCS: 97597; 97598; 99213 ==

== ENCOUNTER → 2023-11-06 11:31 | Outpatient (CLI) | payer OTHER, SELFPAY | PROVIDERS: Family Provider Family Medicine; PCP Family Medicine; Referring Provider Family Medicine; Visit Provider Surgery | DX: T81.89XA Other complications of procedures, not elsewhere classified, initial encounter (principal); S01.00XA Unspecified open wound of scalp, initial encounter; L98.8 Other specified disorders of the skin and subcutaneous tissue; C44.42 Squamous cell carcinoma of skin of scalp and neck; I10 Essential (primary) hypertension | CPT/HCPCS: 11042; 11045; 99213 ==

== ENCOUNTER → 2023-11-13 10:09 | Outpatient (CLI) | payer OTHER, SELFPAY | LOC: WC 10:09 | PROVIDERS: Family Provider Family Medicine; PCP Family Medicine; Referring Provider Family Medicine; Visit Provider Surgery | DX: L59.8 Other specified disorders of the skin and subcutaneous tissue related to radiation (principal); S01.00XA Unspecified open wound of scalp, initial encounter; R23.4 Changes in skin texture; C44.42 Squamous cell carcinoma of skin of scalp and neck | CPT/HCPCS: 11042; 11045; 99213 ==

== ENCOUNTER → 2023-11-20 12:07 | Outpatient (CLI) | payer OTHER, SELFPAY | PROVIDERS: Family Provider Family Medicine; PCP Family Medicine; Referring Provider Family Medicine; Visit Provider Surgery | DX: T81.89XA Other complications of procedures, not elsewhere classified, initial encounter (principal); S01.00XA Unspecified open wound of scalp, initial encounter; L98.8 Other specified disorders of the skin and subcutaneous tissue; C44.42 Squamous cell carcinoma of skin of scalp and neck; I25.10 Atherosclerotic heart disease of native coronary artery without angina pectoris | CPT/HCPCS: 11042; 11045; 99213 ==

== ENCOUNTER → 2023-11-27 13:14 | Outpatient (CLI) | payer OTHER, SELFPAY | PROVIDERS: Family Provider Family Medicine; PCP Family Medicine; Referring Provider Family Medicine; Visit Provider Surgery | DX: T81.89XA Other complications of procedures, not elsewhere classified, initial encounter (principal); S01.00XA Unspecified open wound of scalp, initial encounter; L98.8 Other specified disorders of the skin and subcutaneous tissue; R23.4 Changes in skin texture; C44.42 Squamous cell carcinoma of skin of scalp and neck | CPT/HCPCS: 11042; 11045 ==

== ENCOUNTER → 2023-12-04 10:55 | Outpatient (CLI) | payer OTHER, SELFPAY | PROVIDERS: Family Provider Family Medicine; PCP Family Medicine; Referring Provider Family Medicine; Visit Provider Surgery | DX: S01.00XA Unspecified open wound of scalp, initial encounter (principal); L98.8 Other specified disorders of the skin and subcutaneous tissue; R23.4 Changes in skin texture; C44.42 Squamous cell carcinoma of skin of scalp and neck | CPT/HCPCS: 11042; 11045 ==

== ENCOUNTER → 2023-12-11 13:02 | Outpatient (CLI) | payer OTHER, SELFPAY | LOC: WC 13:02 | PROVIDERS: Family Provider Family Medicine; PCP Family Medicine; Referring Provider Family Medicine; Visit Provider Surgery | DX: T81.89XA Other complications of procedures, not elsewhere classified, initial encounter (principal); S01.00XA Unspecified open wound of scalp, initial encounter; L98.8 Other specified disorders of the skin and subcutaneous tissue; R23.4 Changes in skin texture; C44.42 Squamous cell carcinoma of skin of scalp and neck | CPT/HCPCS: 11042; 11045 ==

== ENCOUNTER → 2023-12-18 15:07 | Outpatient (CLI) | payer OTHER, SELFPAY | LOC: WC 15:10 | PROVIDERS: Family Provider Family Medicine; PCP Family Medicine; Referring Provider Family Medicine; Visit Provider Surgery | DX: S01.00XA Unspecified open wound of scalp, initial encounter (principal); L98.8 Other specified disorders of the skin and subcutaneous tissue; R23.4 Changes in skin texture; C44.42 Squamous cell carcinoma of skin of scalp and neck | CPT/HCPCS: 11042; 11045 ==

== ENCOUNTER → 2023-12-25 13:41 | Outpatient (CLI) | payer OTHER, SELFPAY | PROVIDERS: Family Provider Family Medicine; PCP Family Medicine; Referring Provider Family Medicine; Visit Provider Surgery | DX: S01.00XA Unspecified open wound of scalp, initial encounter (principal); L98.8 Other specified disorders of the skin and subcutaneous tissue; C44.42 Squamous cell carcinoma of skin of scalp and neck; R60.0 Localized edema; I25.10 Atherosclerotic heart disease of native coronary artery without angina pectoris; Z79.52 Long term (current) use of systemic steroids | CPT/HCPCS: 11042; 11045; 99213 ==

== ENCOUNTER → 2024-01-01 11:06 | Outpatient (CLI) | payer OTHER, SELFPAY | PROVIDERS: Family Provider Family Medicine; PCP Family Medicine; Referring Provider Family Medicine; Visit Provider Surgery | DX: T81.89XA Other complications of procedures, not elsewhere classified, initial encounter (principal); S01.00XA Unspecified open wound of scalp, initial encounter; L98.8 Other specified disorders of the skin and subcutaneous tissue; C44.42 Squamous cell carcinoma of skin of scalp and neck | CPT/HCPCS: 11042; 11045 ==

== ENCOUNTER → 2024-01-08 14:37 | Outpatient (CLI) | payer OTHER, SELFPAY | LOC: WC 14:38 | PROVIDERS: Family Provider Family Medicine; PCP Family Medicine; Referring Provider Family Medicine; Visit Provider Surgery | DX: T81.89XA Other complications of procedures, not elsewhere classified, initial encounter (principal); S01.00XA Unspecified open wound of scalp, initial encounter; L98.8 Other specified disorders of the skin and subcutaneous tissue; R60.0 Localized edema; C44.42 Squamous cell carcinoma of skin of scalp and neck | CPT/HCPCS: 11042 ==

== ENCOUNTER → 2024-01-14 14:24 | Outpatient (CLI) | payer OTHER, SELFPAY | LOC: WC 14:24 | PROVIDERS: Family Provider Family Medicine; PCP Family Medicine; Referring Provider Family Medicine; Visit Provider Surgery | DX: S01.00XA Unspecified open wound of scalp, initial encounter (principal); L98.8 Other specified disorders of the skin and subcutaneous tissue; R60.0 Localized edema; C44.42 Squamous cell carcinoma of skin of scalp and neck; I25.10 Atherosclerotic heart disease of native coronary artery without angina pectoris; Z79.52 Long term (current) use of systemic steroids | CPT/HCPCS: 11042; 99213 ==

== ENCOUNTER → 2024-01-22 13:30 | Outpatient (CLI) | payer OTHER, SELFPAY | LOC: WC 13:31 | PROVIDERS: Family Provider Family Medicine; PCP Family Medicine; Referring Provider Family Medicine; Visit Provider Surgery | DX: T81.89XA Other complications of procedures, not elsewhere classified, initial encounter (principal); L98.8 Other specified disorders of the skin and subcutaneous tissue; S01.00XA Unspecified open wound of scalp, initial encounter; C44.42 Squamous cell carcinoma of skin of scalp and neck | CPT/HCPCS: 11042 ==

== ENCOUNTER → 2024-02-05 13:23 | Outpatient (CLI) | payer OTHER, SELFPAY | PROVIDERS: Family Provider Family Medicine; PCP Family Medicine; Referring Provider Family Medicine; Visit Provider Surgery | DX: S01.00XA Unspecified open wound of scalp, initial encounter (principal); C44.42 Squamous cell carcinoma of skin of scalp and neck; R60.0 Localized edema | CPT/HCPCS: 11042; 11045 ==

== ENCOUNTER → 2024-02-15 10:50 | Outpatient (CLI) | payer OTHER, SELFPAY ==
--- NOTE | 2024-02-15 10:51 | DI.CT.S_ITS ---
PROCEDURE: CT HEAD/BRAIN WO CON INDICATIONS: open wound of scalp TECHNIQUE: Noncontrast 4.5 mm thick angled axial sections acquired from the foramen magnum to the vertex, with coronal and sagittal reformats. For radiation dose reduction, the following was used: automated exposure control, adjustment of mA and/or kV according to patient size. COMPARISON: None. FINDINGS: Image quality: Diagnostic CSF spaces: Septum cavum pellucidum and vergae. Lateral ventricles are symmetric. Basal cisterns are patent Volume: Vascular calcifications. Periventricular white matter disease is commonly seen with chronic microangiopathy. Volume loss is present. These findings are mild Brain: No acute hemorrhage. No gross loss of thornton-white differentiation Craniofacial structures: Soft tissue defect at the vertex measures about 5.8 x 4.8 cm (5, 4). No definite evidence of periosteal reaction or calvarial lucency by CT. The calvarium is normal thickness in this region measuring about 1 cm. No significant paranasal sinus opacities. IMPRESSION: No acute intracranial pathology. Soft tissue defect at the scalp described above, without definite abnormality seen in the underlying calvarium. Measurements as above. MRI could be more sensitive for bony involvement if clinically indicated. Dictated by: Landry Weiss M.D. on 02/15/2024 at 18:36 Approved by: Landry Weiss M.D. on 02/15/2024 at 18:39
== END ==
PROVIDERS: Family Provider Family Medicine; PCP Family Medicine
DX: S01.00XA Unspecified open wound of scalp, initial encounter (principal); M79.89 Other specified soft tissue disorders; I67.2 Cerebral atherosclerosis; X58.XXXA Exposure to other specified factors, initial encounter
CPT/HCPCS: 70450

== ENCOUNTER → 2024-02-19 13:15 | Outpatient (CLI) | payer OTHER, SELFPAY | PROVIDERS: Family Provider Family Medicine; PCP Family Medicine; Referring Provider Family Medicine; Visit Provider Surgery | DX: L98.8 Other specified disorders of the skin and subcutaneous tissue (principal); S01.00XA Unspecified open wound of scalp, initial encounter; R60.0 Localized edema; C44.42 Squamous cell carcinoma of skin of scalp and neck; Z79.52 Long term (current) use of systemic steroids | CPT/HCPCS: 11042; 99213 ==

== ENCOUNTER → 2024-03-04 13:35 | Outpatient (CLI) | payer OTHER, SELFPAY | PROVIDERS: Family Provider Family Medicine; PCP Family Medicine; Referring Provider Family Medicine; Visit Provider Surgery | DX: T81.89XA Other complications of procedures, not elsewhere classified, initial encounter (principal); L98.8 Other specified disorders of the skin and subcutaneous tissue; S01.00XA Unspecified open wound of scalp, initial encounter; R60.0 Localized edema; L53.9 Erythematous condition, unspecified; C44.42 Squamous cell carcinoma of skin of scalp and neck | CPT/HCPCS: 11042 ==

== ENCOUNTER → 2024-03-18 15:01 | Outpatient (CLI) | payer OTHER, SELFPAY | PROVIDERS: Family Provider Family Medicine; PCP Family Medicine; Referring Provider Family Medicine; Visit Provider Surgery | DX: T81.89XA Other complications of procedures, not elsewhere classified, initial encounter (principal); L98.8 Other specified disorders of the skin and subcutaneous tissue; S01.00XA Unspecified open wound of scalp, initial encounter; L53.9 Erythematous condition, unspecified; R60.0 Localized edema; C44.42 Squamous cell carcinoma of skin of scalp and neck; I25.10 Atherosclerotic heart disease of native coronary artery without angina pectoris | CPT/HCPCS: 11042; 11045; 99213 ==

== ENCOUNTER → 2024-03-29 08:38 | Outpatient (CLI) | payer OTHER, SELFPAY ==
[2024-03-29 08:55] LABS: Add Manual Diff / Slide Review NO; Basophils Absolute Auto 0 /uL (0-100); Basophils Percent Auto 0.7 % (0-2); Eosinophils Absolute Auto 100 /uL (0-450); Eosinophils Percent Auto 1.3 % (2-4); Hemoglobin 12.8 g/dL (13.5-17.5); Lymphocytes Absolute Auto 1500 /uL (1100-4500); Lymphocytes Percent Auto 20.3 % (25-40); Mean Corpuscular HGB Conc 33.7 % (30-36); Mean Corpuscular Hemoglobin 32.9 PG (26-34); Mean Corpuscular Volume 97.4 fL (80-100); Monocytes Absolute Auto 600 /uL (0-900); Monocytes Percent Auto 8.4 % (3-14); Neutrophils Absolute Auto 5100 /uL (1500-7000); Neutrophils Percent Auto 69.3 % (50-75); Platelet Count 192 X10^3/uL (150-400); White Blood Cell Count 7.4 X10^3/uL (4.5-11.0)
[2024-03-29 09:26] LABS: Alanine Aminotransferase 27 IU/L (<50); Albumin 3.9 g/dL (3.5-5.0); Albumin Globulin Ratio 1.6 (1.0-2.8); Alkaline Phosphatase 62 U/L (38-126); Aspartate Aminotransferase 29 IU/L (17-59); BUN Creatinine Ratio 32.6 (6-22); Bilirubin Total 0.8 mg/dL (0.2-1.3); Blood Urea Nitrogen 28 mg/dL (9-20); Calcium 9.1 mg/dL (8.4-10.2); Carbon Dioxide 31 mmol/L (22-32); Chloride 104 mmol/L (98-107); Estimated Glomerular Filt Rate > 60 mL/min (>60); Globulin 2.5 g/dL (1.7-4.1); Glucose 125 mg/dL (80-110); HEMOLYSIS < 15 (0-50); Potassium 4.1 mmol/L (3.4-5.1); Sodium 138 mmol/L (137-145); Total Protein 6.4 g/dL (6.3-8.2)
== END ==
PROVIDERS: Family Provider Family Medicine; PCP Family Medicine; Referring Provider Internal Medicine Hematology & Oncology; Visit Provider Internal Medicine Hematology & Oncology
DX: C44.42 Squamous cell carcinoma of skin of scalp and neck (principal)
CPT/HCPCS: 36415; 80053; 85025

== ENCOUNTER → 2024-04-08 15:02 | Outpatient (CLI) | payer OTHER, SELFPAY | PROVIDERS: Family Provider Family Medicine; PCP Family Medicine; Referring Provider Family Medicine; Visit Provider Surgery | DX: L98.8 Other specified disorders of the skin and subcutaneous tissue (principal); S01.00XA Unspecified open wound of scalp, initial encounter; C44.42 Squamous cell carcinoma of skin of scalp and neck; R60.0 Localized edema; R51.9 Headache, unspecified; I25.10 Atherosclerotic heart disease of native coronary artery without angina pectoris; Z79.52 Long term (current) use of systemic steroids | CPT/HCPCS: 11042; 11045; 99213 ==

== ENCOUNTER → 2024-04-22 14:40 | Outpatient (CLI) | payer OTHER, SELFPAY | PROVIDERS: Family Provider Family Medicine; PCP Family Medicine; Referring Provider Family Medicine; Visit Provider Surgery | DX: T81.89XA Other complications of procedures, not elsewhere classified, initial encounter (principal); C44.42 Squamous cell carcinoma of skin of scalp and neck; S01.00XA Unspecified open wound of scalp, initial encounter; L98.8 Other specified disorders of the skin and subcutaneous tissue; I10 Essential (primary) hypertension; I25.10 Atherosclerotic heart disease of native coronary artery without angina pectoris; Z79.60 Long term (current) use of unspecified immunomodulators and immunosuppressants | CPT/HCPCS: 11042; 11045 ==

== ENCOUNTER → 2024-05-06 14:21 | Outpatient (CLI) | payer OTHER, SELFPAY | LOC: WC 14:22 | PROVIDERS: Family Provider Family Medicine; PCP Family Medicine; Referring Provider Family Medicine; Visit Provider Surgery | DX: S01.00XA Unspecified open wound of scalp, initial encounter (principal); L59.8 Other specified disorders of the skin and subcutaneous tissue related to radiation; R60.0 Localized edema; C44.42 Squamous cell carcinoma of skin of scalp and neck | CPT/HCPCS: 97597; 97598; 99213 ==

== ENCOUNTER → 2024-05-10 14:19 | Outpatient (ROUT) | payer OTHER, SELFPAY ==
[2024-05-10 14:26] LABS: Add Manual Diff / Slide Review NO; Basophils Absolute Auto 0 /uL (0-100); Basophils Percent Auto 0.4 % (0-2); Eosinophils Absolute Auto 200 /uL (0-450); Eosinophils Percent Auto 2.1 % (2-4); Hematocrit 37.1 % (41-53); Hemoglobin 12.4 g/dL (13.5-17.5); Lymphocytes Absolute Auto 1400 /uL (1100-4500); Lymphocytes Percent Auto 18.8 % (25-40); Mean Corpuscular HGB Conc 33.4 % (30-36); Mean Corpuscular Hemoglobin 32.8 PG (26-34); Mean Corpuscular Volume 98.2 fL (80-100); Monocytes Absolute Auto 600 /uL (0-900); Neutrophils Absolute Auto 5100 /uL (1500-7000); Neutrophils Percent Auto 70.7 % (50-75); Platelet Count 193 X10^3/uL (150-400); Red Blood Cell Count 3.78 X10^6/uL (4.5-5.9); Red Cell Distribution Width 13.5 % (11.6-14.8); White Blood Cell Count 7.3 X10^3/uL (4.5-11.0)
[2024-05-10 14:39] LABS: Alanine Aminotransferase 25 IU/L (<50); Albumin 4.1 g/dL (3.5-5.0); Albumin Globulin Ratio 1.5 (1.0-2.8); Alkaline Phosphatase 66 U/L (38-126); Aspartate Aminotransferase 32 IU/L (17-59); BUN Creatinine Ratio 32.9 (6-22); Bilirubin Total 0.8 mg/dL (0.2-1.3); Blood Urea Nitrogen 24 mg/dL (9-20); Calcium 9.1 mg/dL (8.4-10.2); Carbon Dioxide 26 mmol/L (22-32); Chloride 107 mmol/L (98-107); Estimated Glomerular Filt Rate > 60 mL/min (>60); Globulin 2.8 g/dL (1.7-4.1); Glucose 135 mg/dL (80-110); HEMOLYSIS 19 (0-50); Potassium 3.8 mmol/L (3.4-5.1); Sodium 141 mmol/L (137-145); Total Protein 6.9 g/dL (6.3-8.2)
[2024-05-10 15:10] LABS: Thyroid Stimulating Hormone 1.53 uIU/mL (0.47-4.68)
== END ==
PROVIDERS: Family Provider Family Medicine; PCP Family Medicine; Visit Provider Internal Medicine Hematology & Oncology
DX: Z01.818 Encounter for other preprocedural examination (principal); Z51.12 Encounter for antineoplastic immunotherapy; C44.42 Squamous cell carcinoma of skin of scalp and neck
CPT/HCPCS: 80053; 84443; 85025

== ENCOUNTER → 2024-05-20 14:53 | Outpatient (CLI) | payer OTHER, SELFPAY | LOC: WC 14:54 | PROVIDERS: Family Provider Family Medicine; PCP Family Medicine; Referring Provider Family Medicine; Visit Provider Surgery | DX: L98.8 Other specified disorders of the skin and subcutaneous tissue (principal); S01.00XA Unspecified open wound of scalp, initial encounter; T81.89XA Other complications of procedures, not elsewhere classified, initial encounter; C44.42 Squamous cell carcinoma of skin of scalp and neck; L53.9 Erythematous condition, unspecified; R60.0 Localized edema | CPT/HCPCS: 97597; 97598 ==

== ENCOUNTER → 2024-05-28 15:27 | Outpatient (ROUT) | payer OTHER, SELFPAY ==
[2024-05-28 15:35] LABS: Add Manual Diff / Slide Review NO; Basophils Absolute Auto 0 /uL (0-100); Basophils Percent Auto 0.6 % (0-2); Eosinophils Absolute Auto 300 /uL (0-450); Eosinophils Percent Auto 4.4 % (2-4); Hemoglobin 12.1 g/dL (13.5-17.5); Lymphocytes Absolute Auto 1800 /uL (1100-4500); Lymphocytes Percent Auto 26.5 % (25-40); Mean Corpuscular HGB Conc 33.6 % (30-36); Mean Corpuscular Hemoglobin 32.9 PG (26-34); Mean Corpuscular Volume 97.9 fL (80-100); Monocytes Absolute Auto 800 /uL (0-900); Monocytes Percent Auto 11.5 % (3-14); Neutrophils Absolute Auto 3800 /uL (1500-7000); Platelet Count 180 X10^3/uL (150-400); Red Blood Cell Count 3.68 X10^6/uL (4.5-5.9); Red Cell Distribution Width 13.6 % (11.6-14.8); White Blood Cell Count 6.7 X10^3/uL (4.5-11.0)
[2024-05-28 15:46] LABS: Alanine Aminotransferase 17 IU/L (<50); Albumin Globulin Ratio 1.5 (1.0-2.8); Alkaline Phosphatase 71 U/L (38-126); Aspartate Aminotransferase 24 IU/L (17-59); BUN Creatinine Ratio 40.8 (6-22); Blood Urea Nitrogen 31 mg/dL (9-20); Calcium 8.9 mg/dL (8.4-10.2); Carbon Dioxide 30 mmol/L (22-32); Chloride 105 mmol/L (98-107); Estimated Glomerular Filt Rate > 60 mL/min (>60); Globulin 2.7 g/dL (1.7-4.1); Glucose 101 mg/dL (80-110); HEMOLYSIS < 15 (0-50); Potassium 3.9 mmol/L (3.4-5.1); Sodium 141 mmol/L (137-145); Total Protein 6.7 g/dL (6.3-8.2)
[2024-05-28 16:17] LABS: Thyroid Stimulating Hormone 1.73 uIU/mL (0.47-4.68)
== END ==
PROVIDERS: Family Provider Family Medicine; PCP Family Medicine; Visit Provider Internal Medicine Hematology & Oncology
DX: Z51.11 Encounter for antineoplastic chemotherapy (principal); Z51.12 Encounter for antineoplastic immunotherapy; Z01.818 Encounter for other preprocedural examination; C44.42 Squamous cell carcinoma of skin of scalp and neck
CPT/HCPCS: 80053; 84443; 85025

== ENCOUNTER → 2024-06-03 14:33 | Outpatient (CLI) | payer OTHER, SELFPAY ==
--- NOTE | 2024-06-03 | OV.WND_ITS ---
PROGRESS NOTE DETAILS PATIENT NAME: XIOMY RIVAS PATIENT NUMBER: [id number] CLINICIAN: BERTA POSADA PATIENT DATE OF : 1935 PHYSICIAN / STRATEGIC PARTNERSHIP SPECIALIST: VIOLETKASH PATIENT SUBJECTIVE CHIEF COMPLAINT THIS INFORMATION WAS OBTAINED FROM THE PATIENT. BEEN A LITTLE WOOZY ALLERGIES LISINOPRIL (SEVERITY: SEVERE, REACTION: SWELLING OF LIPS/EYES) HPI THIS INFORMATION WAS OBTAINED FROM THE PATIENT. THE FOLLOWING HPI ELEMENTS WERE DOCUMENTED FOR THE PATIENT'S WOUND: LOCATION: SCALP DURATION: 10/06/2023 CONTEXT: SURGICAL THE PATIENT IS A 88 YO MALE WITH PMH OF CABG, CARDIAC STENTS, STROKE, SKIN CANCER, HTN, CHRONIC BACK PAIN RETURNS TO WOUND CARE FOR FOLLOW UP OF LARGE WOUND ON THE SCALP THAT WAS THE RESULT OF A MOHS SURGERY FOR TREATMENT OF SCC. PATIENT HAD MOH'S PROCEDURE ON 10/06/23 REQUIRING REMOVAL OF PERIOSTEUM. THERE WAS CONCERN FOR PERINEURAL INVASION SO HE HAD A SECOND PROCEDURE ON 10/13/2023. PATHOLOGY REPORT REPORT HAS RETURNED WITH CLEAR MARGINS. HE IS NOT CURRENTLY ON ANTIBIOTIC THERAPY. HE HAS BEEN RECEIVING DRESSING CHANGES WITH HYDROGEL, SILVER ALGINATE, AND XEROFORM GAUZE EVERY OTHER DAY. PATIENT REPORTS LESS PAIN ASSOCIATED WITH THE PERIWOUND SKIN LESIONS. HE HAS NOT NOTED ANY REDNESS OR DRAINAGE. HE REPORTS A GOOD APPETITE AND IS TAKING PROTEIN SUPPLEMENTS. PATIENT DENIES FEVER, CHILLS OR CHANGES IN UNDERLYING HEALTH. ON EXAM TODAY THE MEASUREMENTS ARE IMPROVED BUT DOES APPEAR TO BE MORE DRY, NO SIGN OF INFECTION. THERE IS STILL EXTENSIVE EXPOSED BONE WITH SOME SLOUGH AND BIOFILM. OVERALL THE WOUND HAS DECREASED IN SIZE BY 57% SINCE STARTING TREATMENT. THERE IS A MALIGNANT WOUND ON THE RIGHT ANTERIOR SCALP THAT IS IMPROVED. THE PATIENT IS CURRENTLY RECEIVING IMMUNE THERAPY AND WILL BE SWITCH TO KEYTRUDA SOON. THE PATIENT WAS SEEN BY A PLASTIC SURGERY AT THE [facility] AND HE IS PLANNING TO PROCEED WITH PLACEMENT OF AN ALLOGRAFT FOLLOWED BY A SKIN GRAFT HOWEVER THE SURGERY HAS BEEN POSTPONED UNTIL THE IMMUNE THERAPY HAS BEEN COMPLETED. THE PATIENT WAS SEEN BY RADIATION ONCOLOGY AND HAS DECLINED RADIATION THERAPY. PET SCAN FROM APRIL 07, 2024 SHOWED MULTIPLE LESIONS WITHIN THE SCALP CONSISTENT WITH MALIGNANCY BUT NO EVIDENCE OF LYMPHADENOPATHY OR METASTATIC DISEASE. LABS: 05/28/24: ELECTROLYTES UNREMARKABLE, GFR GREATER THAN 60, LFTS NORMAL, WBC 6.7, HEMOGLOBIN 12.1, HCT 36.0 02/15/24: CT SCAN OF THE HEAD SHOWED SOFT TISSUE DEFECT OTHERWISE NO ABNORMALITIES NOTED 10/08/23: CULTURE GREW ENTEROBACTER AEROGENES FAMILY HISTORY THIS INFORMATION WAS OBTAINED FROM THE PATIENT. 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 NEVER SMOKER LIVES IN: OWN HOME MARITAL STATUS: TARA - RETIRED MEDICAL HISTORY THIS INFORMATION WAS OBTAINED FROM THE CHART, PATIENT. 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 YES? COMPLETE ALL QUESTIONS.: YES LOCATION OF CANCER: SKIN (SCC, MELANOMA, BASAL CELL) LIST TREATING ONCOLOGIST: DR. REBOLLAR (DERMATOLOGY) PATIENT UNDERWENT RADIATION TREATMENT? IF YES, ANSWER QUESTION BELOW.: NO SURGICAL HISTORY THIS INFORMATION WAS OBTAINED FROM THE PATIENT. PATIENT HAS A SURGICAL HISTORY OF: MOHS PROCEDURE- 10/06/2023 (SCALP) MOHS PROCEDURE- 10/13/2023 (SCALP) LEFT PARTIAL KNEE REPLACEMENT- (2015) AORTOCORONARY ARTERY BYPASS GRAFT- CARDIAC STENTS- REVIEW OF SYSTEMS (ROS) THIS INFORMATION WAS OBTAINED FROM THE PATIENT. COMPLAINTS AND SYMPTOMS PATIENT COM PLAINS OF: CO-MORBID CONDITIONS: CORONARY ARTERY DISEASE, HYPERTENSION PRIOR WOUND HISTORY: BLEEDING PATIENT DENIES COM PLAINTS OR SY M PTOM S RELATED TO: CARDIOVASCULAR (CENTRAL): CHEST PAIN, DYSPNEA ON EXERTION CONSTITUTIONAL SYMPTOMS (GENERAL HEALTH): CHILLS, FEVER, LOSS OF APPETITE PRIOR WOUND HISTORY: DRAINAGE, ERYTHEMA, MALODOR, PAIN XIOMY RIVAS [id number] 1935 RESPIRATORY: COUGH, SHORTNESS OF BREATH OBJECTIVE VITALS HEIGHT/LENGTH: 70 IN (177.8 CM), WEIGHT: 211.2 LBS (96 KGS), BMI: 30.3, TEMPERATURE: 98.2 ?F (36.78 ?C), PULSE: 84 BPM, RESPIRATORY RATE: 18 BREATHS/MIN, BLOOD PRESSURE: 141/78 MMHG, PULSE OXIMETRY: 97 %. PHYSICAL EXAM CONSTITUTIONAL: VITAL SIGNS REVIEWED AND NOTED. WELL DEVELOPED, WELL NOURISHED, AND IN NO ACUTE DISTRESS. ALERT AND ORIENTED X3. RESPIRATORY: EVEN RESPIRATIONS WITHOUT USE OF ACCESSORY MUSCLES. NO INTERCOASTAL RETRACTIONS NOTED. EVEN AND NON LABORED RESPIRATION. INTEGUMENTARY (HAIR, SKIN): PERIWOUND SKIN IMPROVED. NO SWELLING. SEE WOUND ASSESSMENT. SKIN WARM AND DRY. NO RASHES. NEUROLOGICAL: SENSATION: SYMMETRIC FUNCTION BY INFORMAL OBSERVATION. PSYCHIATRIC: ORIENTATION TO TIME, PLACE AND PERSON: NORMAL AFFECT WITH NORMAL THOUGHT PATTERN. ADDITIONAL INFORMATION THE PATIENT'S POTENTIAL TO HEAL IS: POOR. WOUND ASSESSMENT(S) WOUND #1 SCALP IS A CHRONIC FULL THICKNESS SURGICAL WOUND ACQUIRED ON 10/06/2023 AND HAS RECEIVED A STATUS OF NOT HEALED. INITIAL WOUND ENCOUNTER MEASUREMENTS ARE 3.6CM LENGTH X 6CM WIDTH X 0.2 CM DEPTH, WITH AN AREA OF 21.6 SQ CM AND A VOLUME OF 4.32 CUBIC CM.INITIAL WOUND ENCOUNTER PREVIOUS MEASUREMENTS FROM 05/20/2024 ARE 4CM LENGTH X 6.2CM WIDTH X 0.2CM DEPTH, WITH AN AREA OF 24.8 SQ CM AND A VOLUME OF 4.96 CUBIC CM. BONE AND ADIPOSE ARE EXPOSED. NO TUNNELING HAS BEEN NOTED. NO SINUS TRACT HAS BEEN NOTED. NO UNDERMINING HAS BEEN NOTED. THERE IS A MODERATE AMOUNT OF PURULENT DRAINAGE NOTED WHICH HAS NO ODOR. THE PATIENT REPORTS A WOUND PAIN OF LEVEL 0/10. THE WOUND MARGIN IS ROLLED WOUND BED HAS YES, PINK, SPONGY, GRANULATION, YES SLOUGH, NO ESCHAR, NO EPITHELIALIZATION. THE PERIWOUND SKIN EXHIBITED EDEMA AND ERYTHEMA. THE PERIWOUND SKIN DID NOT EXHIBIT BRAWNY INDURATION, EXCORIATION, INDURATION, CALLUS, CREPITUS, FLUCTUANCE, RASH, MACERATION, ATROPHIE AMITA, CYANOSIS, ECCHYMOSIS, HEMOSIDEROSIS, PALLOR AND RUBOR. THE PERIWOUND SKIN WAS NOT FRIABLE, DRY/SCALY AND MOIST. THE TEMPERATURE OF THE PERIWOUND SKIN IS WNL. PERIWOUND SKIN DOES NOT EXHIBIT SIGNS OR SYMPTOMS OF INFECTION. LOCAL PULSE IS N/A. ADDITIONAL INFORMATION OTHER DEVITALIZED TISSUE PRESENT: BIOFILM WOUND #2 RIGHT SCALP IS A CHRONIC FULL THICKNESS MALIGNANT WOUND ACQUIRED ON 01/30/2024 AND HAS RECEIVED A STATUS OF NOT HEALED. INITIAL WOUND ENCOUNTER MEASUREMENTS ARE 1.5CM LENGTH X 2.1CM WIDTH X 0.1 CM DEPTH, WITH AN AREA OF 3.15 SQ CM AND A VOLUME OF 0.315 CUBIC CM.INITIAL WOUND ENCOUNTER PREVIOUS MEASUREMENTS FROM 05/20/2024 ARE 1.9CM LENGTH X 3.3CM WIDTH X 0.2CM DEPTH, WITH AN AREA OF 6.27 SQ CM AND A VOLUME OF 1.254 CUBIC CM. ADIPOSE IS EXPOSED. NO TUNNELING HAS BEEN NOTED. NO SINUS TRACT HAS BEEN NOTED. NO UNDERMINING HAS BEEN NOTED. THERE IS A MODERATE AMOUNT OF PURULENT DRAINAGE NOTED WHICH HAS A MILD ODOR. THE PATIENT REPORTS A WOUND PAIN OF LEVEL 8/10. THE WOUND MARGIN IS IRREGULAR WOUND BED HAS YES, BRIGHT RED, PINK, SPONGY, GRANULATION, YES SLOUGH, NO ESCHAR, NO EPITHELIALIZATION. THE PERIWOUND SKIN EXHIBITED ERYTHEMA. THE PERIWOUND SKIN DID NOT EXHIBIT BRAWNY INDURATION, EDEMA, EXCORIATION, INDURATION, CALLUS, CREPITUS, FLUCTUANCE, RASH, MACERATION, ATROPHIE AMITA, CYANOSIS, ECCHYMOSIS, HEMOSIDEROSIS, PALLOR AND RUBOR. THE PERIWOUND SKIN WAS NOT FRIABLE, DRY/SCALY AND MOIST. XIOMY RIVAS [id number] 1935 THE TEMPERATURE OF THE PERIWOUND SKIN IS WNL. PERIWOUND SKIN DOES NOT EXHIBIT SIGNS OR SYMPTOMS OF INFECTION. LOCAL PULSE IS N/A. ASSESSMENT ACTIVE PROBLEMS ICD-10 (ENCOUNTER DIAGNOSIS) C44.42 - SQUAMOUS CELL CARCINOMA OF SKIN OF SCALP AND NECK (ENCOUNTER DIAGNOSIS) S01.00XD - UNSPECIFIED OPEN WOUND OF SCALP, SUBSEQUENT ENCOUNTER GENERAL NOTES LARGE SURGICAL WOUND ON SCALP WITH EXPOSED CALVARIUM, MEASUREMENTS IMPROVED, NO SIGN OF INFECTION THE FOLLOWING FACTORS HAVE BEEN IDENTIFIED THAT MAY AFFECT WOUND HEALING: DEVITALIZED TISSUE BIOFILM MOISTURE BALANCE LARGE WOUND SIZE EXPOSED CALVARIUM ADVANCED AGE IMMUNE SUPPRESSION THERAPY GOALS: REMOVE DEVITALIZED TISSUE REMOVE AND PREVENT BIOFILM IMPROVE MOISTURE BALANCE IDENTIFY AND TREAT INFECTION PROTEIN SUPPLEMENTATION IMPROVED GRANULATION TISSUE PLAN: DEBRIDEMENT, CONTINUE DRESSING CHANGES WITH HYDROGEL, SILVER ALGINATE, AND SWITCH TO ADAPTIC, MOISTEN DRESSING WITH VASHE BETWEEN DRESSING CHANGES, CONTINUE PROTEIN SUPPLEMENTATION, FOLLOW UP IN 2 WEEKS FOR A RECHECK. PROCEDURES WOUND #1 WOUND #1 (SURGICAL WOUND) IS LOCATED ON THE SCALP. A SKIN/SUBCUTANEOUS TISSUE LEVEL SURGICAL DEBRIDEMENT WITH A TOTAL AREA DEBRIDED OF 21.96 SQ CM. WAS PERFORMED BY KASH LAZO MD. SUBCUTANEOUS WAS REMOVED ALONG WITH DEVITALIZED TISSUE: BIOFILM, EXUDATE AND SLOUGH. THE FOLLOWING INSTRUMENT(S) WERE USED: CURETTE. PAIN CONTROL WAS ACHIEVED USING 4% LIDO. A TIME OUT WAS CONDUCTED PRIOR TO THE START OF THE PROCEDURE. A MINIMAL AMOUNT OF BLEEDING WAS CONTROLLED WITH PRESSURE. THE PROCEDURE WAS TOLERATED WELL WITH A PAIN LEVEL OF 0 THROUGHOUT AND A PAIN LEVEL OF 0 FOLLOWING THE PROCEDURE. POST DEBRIDEMENT MEASUREMENTS: 3.6CM LENGTH X 6.1CM WIDTH X 0.2CM DEPTH; WITH AN AREA OF 21.96 SQ CM AND A VOLUME OF 4.392 CUBIC CM. ADDITIONAL INFORMATION MUSCLE FASCIA OR BONE REMOVED AND SENT TO PATHOLOGY?: NO JOSE XIOMY RIVAS [id number] 1935 WOUND ORDERS: WOUND #1 SCALP CLEANSER CLEANSE WOUND AND CHELSEA WOUND WITH A NON-CYTOTOXIC WOUND CLEANSER. - VASHE OR PURACYN. PROCEDURE / ANESTHETIC 4% TOPICAL LIDOCAINE TO WOUND BED PRIOR TO PROCEDURE, IN CLINIC ONLY. TOPICAL TREATMENTS OTHER ORDER: - HYDROGEL TO WOUND BASE. DRESSING ORDERS APPLY DRESSING(S) AND SECURE WITH: - CURAD OIL EMULSION LAYER, THEN SILVER ALGINATE MOISTENED WITH PURACYN OR VASHE. SUPERABSORBER DRESSING TO COVER AND SECURE. TELFA PAD AND TAPE TO COVER EDGES EXTENDING OUT FROM UNDER ISLAND DRESSING. DRESSING CHANGE FREQUENCY CHANGE DRESSING EVERY OTHER DAY. - CHANGE MORE FREQUENTLY IF DRESSING FALLS OFF OR BECOMES SOILED. WOUND #2 RIGHT SCALP CLEANSER CLEANSE WOUND AND CHELSEA WOUND WITH A NON-CYTOTOXIC WOUND CLEANSER. - VASHE OR PURACYN. PROCEDURE / ANESTHETIC 4% TOPICAL LIDOCAINE TO WOUND BED PRIOR TO PROCEDURE, IN CLINIC ONLY. DRESSING ORDERS APPLY DRESSING(S) AND SECURE WITH: - CURAD OIL EMULSION LAYER, COVERED AND SECURED WITH TELFA AND TAPE. DRESSING CHANGE FREQUENCY CHANGE DRESSING EVERY OTHER DAY. - CHANGE MORE FREQUENTLY IF DRESSING FALLS OFF OR BECOMES SOILED. ADDITIONAL ORDERS: HAND HYGIENE HAND HYGIENE - WASH HANDS BEFORE AND AFTER WOUND CARE. CALL THE WOUND CENTER AT [phone] IF YOU HAVE SIGNS OR SYMPTOMS OF INFECTION, FEVER CHILLS OR SHAKES, INCREASED DRAINAGE, INCREASED ODOR OR UNUSUAL REDNESS. AFTER WOUND CENTER HOURS PLEASE NOTIFY YOUR PCP OR GO TO THE EMERGENCY ROOM. DIETARY TAKE VITAMIN C 1000MG BY MOUTH DAILY. TAKE ZINC 25MG BY MOUTH DAILY. INCREASE THE PROTEIN IN YOUR DIET. - ENSURE MAX, LANE, OR SIMILAR PRODUCT. FOLLOW-UP APPOINTMENTS RETURN APPOINTMENT 2 WEEKS OTHER ORDERS: - CONTINUE APPOINTMENTS AT HEMATOLOGY/MEDICAL ONCOLOGY IN [place] WITH DR. JACOBS. SCRIBING ATTESTATION I ATTEST, THE NURSE, THAT I SCRIBED THESE ORDERS FOR THE WOUND CARE PROVIDER. PROVIDER REVIEW AND ATTESTATION: REVIEWED AND EVALUATED LABS. REVIEWED HOSPITAL RECORDS. DISCUSSED THE PLAN OF CARE @ BEDSIDE WITH - THE PATIENT AND PLACE PATIENT ON PALLIATIVE CARE DUE TO: - MALIGNANCY I AGREE AND ATTEST TO THE ABOVE INFORMATION PROVIDED FROM OTHER LICENSED PROFESSIONALS. PLAN OF CARE: 01. ENSURE/ESTABLISH OPTIMAL BLOOD FLOW : - REVIEWED, NOT APPLICABLE 02. ASSESS FOR/TREAT INFECTION : - EVALUATE FOR SIGNS AND SYMPTOMS OF INFECTION AND DOCUMENT FINDINGS. STATUS: CONTINUED DATE: 06/03/2024 03. DEBRIDE WEEKLY OR MORE OFTEN PRN : - EVALUATE PATIENT IN CENTER WEEKLY TO ASSESS WOUND BED AND MARGINS FOR NEED FOR DEBRIDEMENT. STATUS: CONTINUED DATE: 06/03/2024 - DEBRIDEMENT BY ANY METHOD TO REMOVE DEVITALIZED/NECROTIC TISSUE TO PROMOTE HEALING AND PREVENT FURTHER COMPLICATIONS. GOAL IS TO STIMULATE AND/OR MAINTAIN ACUTE PHASE OF WOUND HEALING BY REDUCING XIOMY RIVAS [id number] 1935 BACTERIAL BURDEN AND DEVITALIZED/NON-VIABLE TISSUE. STATUS: CONTINUED DATE: 06/03/2024 04. OPTIMIZE GLUCOSE CONTROL AND NUTRITION : - ORDER/REVIEW PERTINENT LABS TO EVALUATE RENAL FUNCTION, GLUCOSE CONTROL, AND NUTRITIONAL STATUS. STATUS: CONTINUED DATE: 06/03/2024 05. OFFLOADING PLAN : - REVIEWED, NOT APPLICABLE 06. OPTIMIZE HOST FACTORS: - ASSESS AND REVIEW PATIENT HISTORY FOR WOUND ETIOLOGY, CO-MORBID CONDITIONS, MEDICATION REGIME, AND SMOKING HISTORY. STATUS: CONTINUED DATE: 06/03/2024 07. DRESSING SELECTION : - EVALUATE FOR DRESSING-RELATED FACTORS, SUCH AVAILABILITY, WEAR TIME, ADAPTABILITY AND USE TO BETTER OPTIMIZE WOUND HEALING AND PATIENT COMPLIANCE. STATUS: CONTINUED DATE: 06/03/2024 08. ADVANCED MODALITIES : - SET TREATMENT GOALS ACCORDING TO PATIENT AND/OR CAREGIVER?S ABILITY/ COMPLIANCE. STATUS: CONTINUED DATE: 06/03/2024 - RE-EVALUATE PLAN OF CARE IF NO EVIDENCE OF HEALING (40% IN 4 WEEKS). STATUS: CONTINUED DATE: 06/03/2024 09. FALL PREVENTION : - COMPLETE FALL ASSESSMENT. STATUS: COMPLETED DATE: 06/03/2024 10. PAIN MANAGEMENT : - COMPLETE PAIN ASSESSMENT STATUS: COMPLETED DATE: 04/08/2024 - INSTRUCT THE PATIENT TO CALL ?TIME-OUT? IF PAIN IS TOO INTENSE DURING PROCEDURE. STATUS: CONTINUED DATE: 06/03/2024 11. MEASURABLE GOALS FOR WOUND HEALING AND/OR HYPERBARIC OXYGEN THERAPY : - DECREASE WOUND DIMENSIONS STATUS: CONTINUED DATE: 06/03/2024 - IMPROVE QUALITY OF LIFE STATUS: CONTINUED DATE: 06/03/2024 - REDUCE RISK FOR INFECTION STATUS: CONTINUED DATE: 06/03/2024 12. DURATION/FREQUENCY OF WOUND CARE VISITS : - 2X MONTHLY FOR NEXT 30 DAYS STATUS: INITIATED DATE: 06/03/2024 ELECTRONIC SIGNATURE(S) SIGNED BY: DATE: KASH LAZO MD 06/03/2024 15:52:04 (PT) 06/03/2024 3:25:23 PM VERSION ELECTRONICALLY DATE: SIGNED BY: KASH LAZO MD 06/03/2024 15:47:55 (PT) ENTERED BY: KASH LAZO MD ON 06/03/2024 15:51:42 (PT) XIOMY RIVAS [id number] 1935
== END ==
PROVIDERS: Family Provider Family Medicine; PCP Family Medicine; Referring Provider Family Medicine; Visit Provider Surgery
DX: L59.8 Other specified disorders of the skin and subcutaneous tissue related to radiation (principal); S01.00XA Unspecified open wound of scalp, initial encounter; C44.42 Squamous cell carcinoma of skin of scalp and neck; L53.8 Other specified erythematous conditions; R60.0 Localized edema
CPT/HCPCS: 11042; 11045; 99213

== ENCOUNTER → 2024-06-09 12:22 | Outpatient (CLI) | payer OTHER, SELFPAY ==
--- NOTE | 2024-06-09 13:40 | DI.MRI.S_ITS ---
PROCEDURE: MR HEAD/BRAIN WO/W CON INDICATIONS: HEADACHES PERSISTENT TECHNIQUE: Noncontrast axial T1 spin echo, axial T2 fast spin echo, sagittal and axial FLAIR, coronal T2 fast spin echo, axial gradient echo, axial diffusion and ADC through the brain. After the administration of contrast, axial and coronal and sagittal T1 spin echo with fat saturation through the brain. COMPARISON: [facility], MR, MR HEAD/BRAIN WO/W CON, 10/22/2022, 16:36. FINDINGS: Image quality: Excellent. CSF spaces: Basal cisterns are patent. Cavum septum pellucidum is redemonstrated. No extra-axial fluid collections. Ventricles are normal in size and shape. Brain: No midline shift. No intracranial bleeds or masses. 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 No abnormal intracranial enhancement. There is cerebral volume loss for age. There is periventricular white matter chronic small vessel ischemic change. The brainstem appears normal. Diffusion-weighted images demonstrate no acute infarct. No chronic ischemic insults. Normal intravascular flow voids are present. Skull and face: Calvarial marrow is normal in signal. Bilateral lens replacements. Otherwise, the orbits are unremarkable. Sinuses: Sinuses and mastoids appear clear. IMPRESSION: No acute intracranial abnormalities or abnormal intracranial enhancement. No cause for patient's symptoms is identified. Age-related global volume loss and chronic microvascular ischemic changes. Dictated by: Ck Johnson M.D. on 06/09/2024 at 15:46 Approved by: Ck Johnson M.D. on 06/09/2024 at 15:51
== END ==
LOC: MRI 12:23
PROVIDERS: Family Provider Family Medicine; PCP Family Medicine; Referring Provider Internal Medicine Hematology & Oncology; Visit Provider Internal Medicine Hematology & Oncology
DX: R51.9 Headache, unspecified (principal); G93.89 Other specified disorders of brain
CPT/HCPCS: 70553; A9579

== ENCOUNTER → 2024-06-16 14:10 | Outpatient (CLI) | payer OTHER, SELFPAY | PROVIDERS: Family Provider Family Medicine; PCP Family Medicine; Referring Provider Family Medicine; Visit Provider Surgery | DX: L59.8 Other specified disorders of the skin and subcutaneous tissue related to radiation (principal); S01.00XA Unspecified open wound of scalp, initial encounter; T81.89XA Other complications of procedures, not elsewhere classified, initial encounter; L53.8 Other specified erythematous conditions; R60.0 Localized edema; C44.42 Squamous cell carcinoma of skin of scalp and neck | CPT/HCPCS: 11042 ==

== ENCOUNTER → 2024-06-18 12:00 | Outpatient (ROUT) | payer OTHER, SELFPAY ==
[2024-06-18 12:14] LABS: Add Manual Diff / Slide Review NO; Basophils Absolute Auto 0 /uL (0-100); Basophils Percent Auto 0.6 % (0-2); Eosinophils Absolute Auto 300 /uL (0-450); Eosinophils Percent Auto 5.3 % (2-4); Hematocrit 36.4 % (41-53); Hemoglobin 12.3 g/dL (13.5-17.5); Lymphocytes Absolute Auto 1600 /uL (1100-4500); Lymphocytes Percent Auto 28.1 % (25-40); Mean Corpuscular HGB Conc 33.7 % (30-36); Mean Corpuscular Hemoglobin 32.7 PG (26-34); Mean Corpuscular Volume 97.2 fL (80-100); Monocytes Absolute Auto 500 /uL (0-900); Monocytes Percent Auto 8.4 % (3-14); Neutrophils Absolute Auto 3300 /uL (1500-7000); Neutrophils Percent Auto 57.6 % (50-75); Platelet Count 179 X10^3/uL (150-400); Red Blood Cell Count 3.75 X10^6/uL (4.5-5.9); Red Cell Distribution Width 13.8 % (11.6-14.8); White Blood Cell Count 5.7 X10^3/uL (4.5-11.0)
[2024-06-18 12:24] LABS: Alanine Aminotransferase 18 IU/L (<50); Albumin 4.1 g/dL (3.5-5.0); Albumin Globulin Ratio 1.5 (1.0-2.8); Alkaline Phosphatase 75 U/L (38-126); Aspartate Aminotransferase 25 IU/L (17-59); BUN Creatinine Ratio 32.5 (6-22); Bilirubin Total 0.9 mg/dL (0.2-1.3); Blood Urea Nitrogen 26 mg/dL (9-20); Calcium 9.1 mg/dL (8.4-10.2); Carbon Dioxide 28 mmol/L (22-32); Chloride 107 mmol/L (98-107); Estimated Glomerular Filt Rate > 60 mL/min (>60); Globulin 2.8 g/dL (1.7-4.1); Glucose 123 mg/dL (80-110); HEMOLYSIS < 15 (0-50); Potassium 3.9 mmol/L (3.4-5.1); Sodium 142 mmol/L (137-145); Total Protein 6.9 g/dL (6.3-8.2)
== END ==
PROVIDERS: Family Provider Family Medicine; PCP Family Medicine
DX: Z01.818 Encounter for other preprocedural examination (principal); C44.42 Squamous cell carcinoma of skin of scalp and neck; Z51.12 Encounter for antineoplastic immunotherapy
CPT/HCPCS: 80053; 84443; 85025

== ENCOUNTER → 2024-07-01 13:29 | Outpatient (CLI) | payer OTHER, SELFPAY | PROVIDERS: Family Provider Family Medicine; PCP Family Medicine; Referring Provider Family Medicine; Visit Provider Surgery | DX: T81.89XA Other complications of procedures, not elsewhere classified, initial encounter (principal); L98.8 Other specified disorders of the skin and subcutaneous tissue; S01.00XA Unspecified open wound of scalp, initial encounter; C44.42 Squamous cell carcinoma of skin of scalp and neck; R60.0 Localized edema; R51.9 Headache, unspecified; I10 Essential (primary) hypertension; I25.10 Atherosclerotic heart disease of native coronary artery without angina pectoris | CPT/HCPCS: 11042; 99213 ==

== ENCOUNTER → 2024-07-08 14:53 | Outpatient (ROUT) | payer OTHER, SELFPAY ==
[2024-07-08 15:01] LABS: Add Manual Diff / Slide Review NO; Basophils Absolute Auto 100 /uL (0-100); Basophils Percent Auto 1.2 % (0-2); Eosinophils Absolute Auto 200 /uL (0-450); Eosinophils Percent Auto 3.7 % (2-4); Hematocrit 35.9 % (41-53); Lymphocytes Absolute Auto 1900 /uL (1100-4500); Lymphocytes Percent Auto 33.4 % (25-40); Mean Corpuscular HGB Conc 33.4 % (30-36); Mean Corpuscular Hemoglobin 32.4 PG (26-34); Mean Corpuscular Volume 97.1 fL (80-100); Monocytes Absolute Auto 500 /uL (0-900); Monocytes Percent Auto 9.7 % (3-14); Neutrophils Absolute Auto 2900 /uL (1500-7000); Platelet Count 214 X10^3/uL (150-400); White Blood Cell Count 5.6 X10^3/uL (4.5-11.0)
[2024-07-08 15:33] LABS: Alanine Aminotransferase 21 IU/L (<50); Albumin Globulin Ratio 1.5 (1.0-2.8); Alkaline Phosphatase 74 U/L (38-126); Aspartate Aminotransferase 29 IU/L (17-59); BUN Creatinine Ratio 35.5 (6-22); Bilirubin Total 0.6 mg/dL (0.2-1.3); Blood Urea Nitrogen 27 mg/dL (9-20); Carbon Dioxide 29 mmol/L (22-32); Chloride 104 mmol/L (98-107); Estimated Glomerular Filt Rate > 60 mL/min (>60); Globulin 2.7 g/dL (1.7-4.1); Glucose 91 mg/dL (80-110); HEMOLYSIS < 15 (0-50); Sodium 141 mmol/L (137-145); Total Protein 6.7 g/dL (6.3-8.2)
[2024-07-08 16:03] LABS: Thyroid Stimulating Hormone 1.59 uIU/mL (0.47-4.68)
== END ==
PROVIDERS: Family Provider Family Medicine; PCP Family Medicine; Visit Provider Internal Medicine Hematology & Oncology
DX: Z01.818 Encounter for other preprocedural examination (principal); C44.42 Squamous cell carcinoma of skin of scalp and neck; Z51.12 Encounter for antineoplastic immunotherapy
CPT/HCPCS: 80053; 84443; 85025

== ENCOUNTER → 2024-07-15 13:30 | Outpatient (CLI) | payer OTHER, SELFPAY | PROVIDERS: Family Provider Family Medicine; PCP Family Medicine; Referring Provider Family Medicine; Visit Provider Surgery | DX: S01.00XA Unspecified open wound of scalp, initial encounter (principal); T81.89XA Other complications of procedures, not elsewhere classified, initial encounter; L59.8 Other specified disorders of the skin and subcutaneous tissue related to radiation; C44.42 Squamous cell carcinoma of skin of scalp and neck | CPT/HCPCS: 11042 ==

== ENCOUNTER → 2024-07-29 13:19 | Outpatient (CLI) | payer OTHER, SELFPAY | LOC: WC 13:20 | PROVIDERS: Family Provider Family Medicine; PCP Family Medicine; Referring Provider Family Medicine; Visit Provider Surgery | DX: T81.89XA Other complications of procedures, not elsewhere classified, initial encounter (principal); S01.00XA Unspecified open wound of scalp, initial encounter; C44.42 Squamous cell carcinoma of skin of scalp and neck | CPT/HCPCS: 11042; 99213 ==

== ENCOUNTER → 2024-08-02 10:44 | Outpatient (ROUT) | payer OTHER, SELFPAY ==
[2024-08-02 10:50] LABS: Add Manual Diff / Slide Review NO; Basophils Absolute Auto 0 /uL (0-100); Basophils Percent Auto 0.7 % (0-2); Eosinophils Absolute Auto 300 /uL (0-450); Eosinophils Percent Auto 5.6 % (2-4); Hematocrit 36.1 % (41-53); Hemoglobin 12.2 g/dL (13.5-17.5); Lymphocytes Absolute Auto 1100 /uL (1100-4500); Lymphocytes Percent Auto 20.2 % (25-40); Mean Corpuscular HGB Conc 33.8 % (30-36); Mean Corpuscular Hemoglobin 32.8 PG (26-34); Mean Corpuscular Volume 97.2 fL (80-100); Monocytes Absolute Auto 500 /uL (0-900); Monocytes Percent Auto 9.1 % (3-14); Neutrophils Absolute Auto 3600 /uL (1500-7000); Neutrophils Percent Auto 64.4 % (50-75); Platelet Count 181 X10^3/uL (150-400); Red Blood Cell Count 3.71 X10^6/uL (4.5-5.9); Red Cell Distribution Width 13.9 % (11.6-14.8); White Blood Cell Count 5.6 X10^3/uL (4.5-11.0)
[2024-08-02 11:02] LABS: Alanine Aminotransferase 18 IU/L (<50); Albumin 4.1 g/dL (3.5-5.0); Albumin Globulin Ratio 1.5 (1.0-2.8); Alkaline Phosphatase 74 U/L (38-126); Aspartate Aminotransferase 26 IU/L (17-59); BUN Creatinine Ratio 32.4 (6-22); Bilirubin Total 0.8 mg/dL (0.2-1.3); Blood Urea Nitrogen 24 mg/dL (9-20); Carbon Dioxide 28 mmol/L (22-32); Chloride 104 mmol/L (98-107); Estimated Glomerular Filt Rate > 60 mL/min (>60); Globulin 2.7 g/dL (1.7-4.1); Glucose 136 mg/dL (70-99); HEMOLYSIS < 15 (0-50); Potassium 4.1 mmol/L (3.4-5.1); Sodium 140 mmol/L (137-145); Total Protein 6.8 g/dL (6.3-8.2)
[2024-08-02 11:33] LABS: Thyroid Stimulating Hormone 1.66 uIU/mL (0.47-4.68)
== END ==
PROVIDERS: Family Provider Family Medicine; PCP Family Medicine; Visit Provider Internal Medicine Hematology & Oncology
DX: Z51.12 Encounter for antineoplastic immunotherapy (principal); Z01.818 Encounter for other preprocedural examination; C44.42 Squamous cell carcinoma of skin of scalp and neck
CPT/HCPCS: 80053; 84443; 85025

== ENCOUNTER → 2024-08-12 12:50 | Outpatient (CLI) | payer OTHER, SELFPAY | LOC: WC 12:51 | PROVIDERS: Family Provider Family Medicine; PCP Family Medicine; Referring Provider Family Medicine; Visit Provider Surgery | DX: T81.89XA Other complications of procedures, not elsewhere classified, initial encounter (principal); S01.00XA Unspecified open wound of scalp, initial encounter; C44.42 Squamous cell carcinoma of skin of scalp and neck | CPT/HCPCS: 11042 ==

== ENCOUNTER → 2024-08-24 11:10 | Outpatient (ROUT) | payer OTHER, SELFPAY ==
[2024-08-24 11:25] LABS: Add Manual Diff / Slide Review NO; Basophils Absolute Auto 0 /uL (0-100); Basophils Percent Auto 1.2 % (0-2); Eosinophils Absolute Auto 300 /uL (0-450); Eosinophils Percent Auto 6.8 % (2-4); Hematocrit 35.6 % (41-53); Lymphocytes Absolute Auto 1100 /uL (1100-4500); Lymphocytes Percent Auto 26.5 % (25-40); Mean Corpuscular HGB Conc 33.8 % (30-36); Mean Corpuscular Hemoglobin 32.8 PG (26-34); Mean Corpuscular Volume 97.1 fL (80-100); Monocytes Absolute Auto 500 /uL (0-900); Monocytes Percent Auto 12.2 % (3-14); Neutrophils Absolute Auto 2200 /uL (1500-7000); Neutrophils Percent Auto 53.3 % (50-75); Platelet Count 152 X10^3/uL (150-400); Red Blood Cell Count 3.67 X10^6/uL (4.5-5.9); Red Cell Distribution Width 14.2 % (11.6-14.8); White Blood Cell Count 4.2 X10^3/uL (4.5-11.0)
[2024-08-24 11:26] LABS: Alanine Aminotransferase 16 IU/L (<50); Albumin 4.1 g/dL (3.5-5.0); Albumin Globulin Ratio 1.5 (1.0-2.8); Alkaline Phosphatase 82 U/L (38-126); Aspartate Aminotransferase 26 IU/L (17-59); BUN Creatinine Ratio 42.5 (6-22); Bilirubin Total 0.8 mg/dL (0.2-1.3); Blood Urea Nitrogen 31 mg/dL (9-20); Carbon Dioxide 25 mmol/L (22-32); Chloride 106 mmol/L (98-107); Estimated Glomerular Filt Rate > 60 mL/min (>60); Globulin 2.8 g/dL (1.7-4.1); Glucose 123 mg/dL (70-99); HEMOLYSIS 16 (0-50); Potassium 4.2 mmol/L (3.4-5.1); Sodium 139 mmol/L (137-145); Total Protein 6.9 g/dL (6.3-8.2)
[2024-08-24 11:57] LABS: Thyroid Stimulating Hormone 2.23 uIU/mL (0.47-4.68)
== END ==
PROVIDERS: Family Provider Family Medicine; PCP Family Medicine; Visit Provider Internal Medicine Hematology & Oncology
DX: Z01.818 Encounter for other preprocedural examination (principal); C44.42 Squamous cell carcinoma of skin of scalp and neck; Z51.12 Encounter for antineoplastic immunotherapy
CPT/HCPCS: 80053; 84443; 85025

== ENCOUNTER → 2024-08-26 14:31 | Outpatient (CLI) | payer OTHER, SELFPAY | PROVIDERS: Family Provider Family Medicine; PCP Family Medicine; Referring Provider Family Medicine; Visit Provider Surgery | DX: T81.89XA Other complications of procedures, not elsewhere classified, initial encounter (principal); S01.00XA Unspecified open wound of scalp, initial encounter; Z85.828 Personal history of other malignant neoplasm of skin; R60.0 Localized edema; L98.8 Other specified disorders of the skin and subcutaneous tissue; I25.10 Atherosclerotic heart disease of native coronary artery without angina pectoris | CPT/HCPCS: 11044; 99213 ==

== ENCOUNTER → 2024-09-09 14:27 | Outpatient (CLI) | payer OTHER, SELFPAY | LOC: WC 14:34 | PROVIDERS: Family Provider Family Medicine; PCP Family Medicine; Referring Provider Family Medicine; Visit Provider Surgery | DX: S01.00XA Unspecified open wound of scalp, initial encounter (principal); C44.42 Squamous cell carcinoma of skin of scalp and neck | CPT/HCPCS: 11042 ==

== ENCOUNTER → 2024-09-13 11:33 | Outpatient (ROUT) | payer OTHER, SELFPAY ==
[2024-09-13 11:55] LABS: Alanine Aminotransferase 16 IU/L (<50); Albumin Globulin Ratio 1.4 (1.0-2.8); Alkaline Phosphatase 75 U/L (38-126); Aspartate Aminotransferase 23 IU/L (17-59); BUN Creatinine Ratio 38.1 (6-22); Bilirubin Total 0.6 mg/dL (0.2-1.3); Blood Urea Nitrogen 32 mg/dL (9-20); Carbon Dioxide 30 mmol/L (22-32); Chloride 106 mmol/L (98-107); Estimated Glomerular Filt Rate > 60 mL/min (>60); Globulin 2.9 g/dL (1.7-4.1); Glucose 111 mg/dL (70-99); HEMOLYSIS < 15 (0-50); Potassium 4.5 mmol/L (3.4-5.1); Sodium 142 mmol/L (137-145); Total Protein 6.9 g/dL (6.3-8.2)
[2024-09-13 11:58] LABS: Add Manual Diff / Slide Review NO; Basophils Absolute Auto 0 /uL (0-100); Basophils Percent Auto 0.9 % (0-2); Eosinophils Absolute Auto 300 /uL (0-450); Hematocrit 36.9 % (41-53); Hemoglobin 12.3 g/dL (13.5-17.5); Lymphocytes Absolute Auto 900 /uL (1100-4500); Lymphocytes Percent Auto 20.1 % (25-40); Mean Corpuscular HGB Conc 33.3 % (30-36); Mean Corpuscular Hemoglobin 32.5 PG (26-34); Mean Corpuscular Volume 97.5 fL (80-100); Monocytes Absolute Auto 600 /uL (0-900); Monocytes Percent Auto 12.1 % (3-14); Neutrophils Absolute Auto 2800 /uL (1500-7000); Neutrophils Percent Auto 60.9 % (50-75); Platelet Count 171 X10^3/uL (150-400); Red Blood Cell Count 3.78 X10^6/uL (4.5-5.9); Red Cell Distribution Width 13.9 % (11.6-14.8); White Blood Cell Count 4.6 X10^3/uL (4.5-11.0)
[2024-09-13 12:26] LABS: Thyroid Stimulating Hormone 2.01 uIU/mL (0.47-4.68)
== END ==
LOC: LAB 11:35
PROVIDERS: Family Provider Family Medicine; PCP Family Medicine; Visit Provider Internal Medicine Hematology & Oncology
DX: Z51.12 Encounter for antineoplastic immunotherapy (principal); Z01.818 Encounter for other preprocedural examination; C44.42 Squamous cell carcinoma of skin of scalp and neck
CPT/HCPCS: 80053; 84443; 85025

== ENCOUNTER → 2024-09-23 14:09 | Outpatient (CLI) | payer OTHER, SELFPAY | PROVIDERS: Family Provider Family Medicine; PCP Family Medicine; Referring Provider Family Medicine; Visit Provider Surgery | DX: T81.89XA Other complications of procedures, not elsewhere classified, initial encounter (principal); S01.00XA Unspecified open wound of scalp, initial encounter; C44.42 Squamous cell carcinoma of skin of scalp and neck | CPT/HCPCS: 11042; 99213 ==

== ENCOUNTER → 2024-10-07 13:24 | Outpatient (CLI) | payer OTHER, SELFPAY | PROVIDERS: Family Provider Family Medicine; PCP Family Medicine; Referring Provider Family Medicine; Visit Provider Surgery | DX: T81.89XA Other complications of procedures, not elsewhere classified, initial encounter (principal); S01.00XA Unspecified open wound of scalp, initial encounter; C44.42 Squamous cell carcinoma of skin of scalp and neck | CPT/HCPCS: 11042 ==

== ENCOUNTER → 2024-10-20 13:50 | Outpatient (CLI) | payer OTHER, SELFPAY | LOC: WC 13:50 | PROVIDERS: Family Provider Family Medicine; PCP Family Medicine; Referring Provider Family Medicine; Visit Provider Surgery | DX: T81.89XA Other complications of procedures, not elsewhere classified, initial encounter (principal); S01.00XA Unspecified open wound of scalp, initial encounter; C44.42 Squamous cell carcinoma of skin of scalp and neck; I10 Essential (primary) hypertension | CPT/HCPCS: 11042; 99213 ==

== ENCOUNTER → 2024-10-22 15:24 | Outpatient (ROUT) | payer OTHER, SELFPAY ==
[2024-10-22 15:34] LABS: Add Manual Diff / Slide Review NO; Hematocrit 35.7 % (41-53); Hemoglobin 12.4 g/dL (13.5-17.5); Lymphocytes Absolute Auto 1200 /uL (1100-4500); Mean Corpuscular HGB Conc 34.7 % (30-36); Mean Corpuscular Hemoglobin 33.2 PG (26-34); Mean Corpuscular Volume 95.8 fL (80-100); Platelet Count 171 X10^3/uL (150-400)
[2024-10-22 15:48] LABS: Alanine Aminotransferase 15 IU/L (<50); Albumin 4.1 g/dL (3.5-5.0); Albumin Globulin Ratio 1.4 (1.0-2.8); Alkaline Phosphatase 73 U/L (38-126); Blood Urea Nitrogen 21 mg/dL (9-20); Calcium 9.3 mg/dL (8.4-10.2); Carbon Dioxide 28 mmol/L (22-32); Chloride 104 mmol/L (98-107); Estimated Glomerular Filt Rate > 60 mL/min (>60); Globulin 2.9 g/dL (1.7-4.1); Glucose 111 mg/dL (70-99); HEMOLYSIS < 15 (0-50); Potassium 4.3 mmol/L (3.4-5.1); Sodium 140 mmol/L (137-145); Total Protein 7.0 g/dL (6.3-8.2)
[2024-10-22 16:19] LABS: Thyroid Stimulating Hormone 1.74 uIU/mL (0.47-4.68)
== END ==
PROVIDERS: Family Provider Family Medicine; PCP Family Medicine; Visit Provider Internal Medicine Hematology & Oncology
DX: Z01.818 Encounter for other preprocedural examination (principal); Z51.12 Encounter for antineoplastic immunotherapy; C44.42 Squamous cell carcinoma of skin of scalp and neck
CPT/HCPCS: 80053; 84443; 85025

== ENCOUNTER → 2024-12-02 12:58 | Outpatient (CLI) | payer OTHER, SELFPAY | LOC: WC 13:05 | PROVIDERS: Family Provider Family Medicine; PCP Family Medicine; Referring Provider Family Medicine; Visit Provider Physician Assistant | DX: T81.89XA Other complications of procedures, not elsewhere classified, initial encounter (principal); S01.00XA Unspecified open wound of scalp, initial encounter; C44.42 Squamous cell carcinoma of skin of scalp and neck; L98.8 Other specified disorders of the skin and subcutaneous tissue; L92.9 Granulomatous disorder of the skin and subcutaneous tissue, unspecified; I10 Essential (primary) hypertension; Z86.73 Personal history of transient ischemic attack (TIA), and cerebral infarction without residual deficits; Z95.1 Presence of aortocoronary bypass graft; Z95.5 Presence of coronary angioplasty implant and graft | CPT/HCPCS: 97597; 99213 ==

== ENCOUNTER → 2024-12-17 14:10 | Outpatient (CLI) | payer OTHER, SELFPAY | LOC: WC 14:11 | PROVIDERS: Family Provider Family Medicine; PCP Family Medicine; Referring Provider Family Medicine; Visit Provider Physician Assistant | DX: T81.89XA Other complications of procedures, not elsewhere classified, initial encounter (principal); S01.00XA Unspecified open wound of scalp, initial encounter; L98.8 Other specified disorders of the skin and subcutaneous tissue; L92.9 Granulomatous disorder of the skin and subcutaneous tissue, unspecified; C44.42 Squamous cell carcinoma of skin of scalp and neck; Z88.8 Allergy status to other drugs, medicaments and biological substances; Z86.73 Personal history of transient ischemic attack (TIA), and cerebral infarction without residual deficits; Z95.5 Presence of coronary angioplasty implant and graft; I10 Essential (primary) hypertension | CPT/HCPCS: 11042; 99213 ==

== ENCOUNTER → 2024-12-30 14:01 | Outpatient (CLI) | payer OTHER, SELFPAY | LOC: WC 14:13 | PROVIDERS: Family Provider Family Medicine; PCP Family Medicine; Referring Provider Family Medicine; Visit Provider Surgery | DX: L89.323 Pressure ulcer of left buttock, stage 3 (principal); G82.51 Quadriplegia, C1-C4 complete; R21 Rash and other nonspecific skin eruption; R20.8 Other disturbances of skin sensation; Z99.3 Dependence on wheelchair; Z79.01 Long term (current) use of anticoagulants | CPT/HCPCS: 11044 ==

== ENCOUNTER → 2025-01-13 13:02 | Outpatient (CLI) | payer OTHER, SELFPAY | LOC: WC 13:03 | PROVIDERS: Family Provider Family Medicine; PCP Family Medicine; Referring Provider Family Medicine; Visit Provider Physician Assistant | DX: T81.89XA Other complications of procedures, not elsewhere classified, initial encounter (principal); L98.8 Other specified disorders of the skin and subcutaneous tissue; S01.00XA Unspecified open wound of scalp, initial encounter; C44.42 Squamous cell carcinoma of skin of scalp and neck | CPT/HCPCS: 11042; 99213 ==

== ENCOUNTER → 2025-01-27 13:13 | Outpatient (CLI) | payer OTHER, SELFPAY | LOC: WC 13:15 | PROVIDERS: Family Provider Family Medicine; PCP Family Medicine; Referring Provider Family Medicine; Visit Provider Surgery | DX: T81.89XA Other complications of procedures, not elsewhere classified, initial encounter (principal); S01.00XA Unspecified open wound of scalp, initial encounter; L98.8 Other specified disorders of the skin and subcutaneous tissue; L92.9 Granulomatous disorder of the skin and subcutaneous tissue, unspecified; L85.3 Xerosis cutis; R60.0 Localized edema; M89.8X8 Other specified disorders of bone, other site; I10 Essential (primary) hypertension; Z85.828 Personal history of other malignant neoplasm of skin | CPT/HCPCS: 11044; 99213 ==

== ENCOUNTER → 2025-02-03 10:22 | Outpatient (CLI) | payer OTHER, SELFPAY | LOC: WC 10:23 | PROVIDERS: Family Provider Family Medicine; PCP Family Medicine; Referring Provider Family Medicine; Visit Provider Surgery | DX: T81.89XA Other complications of procedures, not elsewhere classified, initial encounter (principal); S01.00XA Unspecified open wound of scalp, initial encounter; C44.42 Squamous cell carcinoma of skin of scalp and neck; R60.0 Localized edema; R23.4 Changes in skin texture | CPT/HCPCS: 11044 ==

== ENCOUNTER → 2025-02-10 10:57 | Outpatient (CLI) | payer OTHER, SELFPAY | LOC: WC 11:08 | PROVIDERS: Family Provider Family Medicine; PCP Family Medicine; Referring Provider Family Medicine; Visit Provider Surgery | DX: T81.89XA Other complications of procedures, not elsewhere classified, initial encounter (principal); S01.00XA Unspecified open wound of scalp, initial encounter; C44.42 Squamous cell carcinoma of skin of scalp and neck | CPT/HCPCS: 11044 ==

== ENCOUNTER → 2025-02-17 11:51 | Outpatient (CLI) | payer OTHER, SELFPAY | LOC: WC 11:52 | PROVIDERS: Family Provider Family Medicine; PCP Family Medicine; Referring Provider Family Medicine; Visit Provider Surgery | DX: T81.89XA Other complications of procedures, not elsewhere classified, initial encounter (principal); S01.00XA Unspecified open wound of scalp, initial encounter; C44.42 Squamous cell carcinoma of skin of scalp and neck | CPT/HCPCS: 11044 ==

== ENCOUNTER → 2025-03-02 11:45 | Outpatient (CLI) | payer OTHER, SELFPAY | LOC: WC 11:46 | PROVIDERS: Family Provider Family Medicine; PCP Family Medicine; Referring Provider Family Medicine; Visit Provider Surgery | DX: T81.89XA Other complications of procedures, not elsewhere classified, initial encounter (principal); S01.00XA Unspecified open wound of scalp, initial encounter; C44.42 Squamous cell carcinoma of skin of scalp and neck | CPT/HCPCS: 11042; 99213 ==

== ENCOUNTER → 2025-03-16 11:05 | Outpatient (CLI) | payer OTHER, SELFPAY | LOC: WC 11:06 | PROVIDERS: Family Provider Family Medicine; PCP Family Medicine; Referring Provider Family Medicine; Visit Provider Surgery | DX: T81.89XA Other complications of procedures, not elsewhere classified, initial encounter (principal); L98.8 Other specified disorders of the skin and subcutaneous tissue; S01.00XA Unspecified open wound of scalp, initial encounter; C44.42 Squamous cell carcinoma of skin of scalp and neck; Z79.2 Long term (current) use of antibiotics | CPT/HCPCS: 11042; 87070; 87075; 87205 ==

== ENCOUNTER → 2025-03-30 10:46 | Outpatient (CLI) | payer OTHER, SELFPAY | LOC: WC 10:47 | PROVIDERS: Family Provider Family Medicine; PCP Family Medicine; Referring Provider Family Medicine; Visit Provider Surgery | DX: L59.8 Other specified disorders of the skin and subcutaneous tissue related to radiation (principal); S01.00XA Unspecified open wound of scalp, initial encounter; C44.42 Squamous cell carcinoma of skin of scalp and neck | CPT/HCPCS: 11042; 87070; 87075; 87205; 99213 ==